=== PATIENT | female | born 1970 | race Caucasian/White ===

== ENCOUNTER → 2020-10-02 14:02 | Outpatient (BNVA) | payer OTHER, SELFPAY | PROVIDERS: PCP Internal Medicine; Visit Provider Internal Medicine Gastroenterology | DX: Z76.89 Persons encountering health services in other specified circumstances (principal) ==

== ENCOUNTER 2020-10-11 12:47 | Outpatient (REF) | payer OTHER, SELFPAY ==
--- NOTE | 2020-10-11 12:53 | XR_ITS ---
EXAMINATION: KNEE X-RAY CLINICAL INFORMATION: Left knee pain COMPARISON: None TECHNIQUE: Standing AP view of both knees and lateral and sunrise view of the left knee FINDINGS: On the lateral view, the patella may be slightly high or patella brianna. Patellar location appears similar on the bilateral AP standing view. Bone alignment is otherwise normal. No fracture or dislocation is seen. The joint spaces are normal. There is no joint effusion. XR/XR knee LT 2V IMPRESSION: Question slightly high patella or patella brianna. Otherwise unremarkable exam.
--- NOTE | 2020-10-11 12:53 | XR_ITS ---
EXAMINATION: KNEE X-RAY CLINICAL INFORMATION: Left knee pain COMPARISON: None TECHNIQUE: Standing AP view of both knees and lateral and sunrise view of the left knee FINDINGS: On the lateral view, the patella may be slightly high or patella brianna. Patellar location appears similar on the bilateral AP standing view. Bone alignment is otherwise normal. No fracture or dislocation is seen. The joint spaces are normal. There is no joint effusion. XR/XR knee standing BI IMPRESSION: Question slightly high patella or patella brianna. Otherwise unremarkable exam.
== END 2020-10-11 12:48 | disposition home or self-care (01) ==
LOC: HO.XRAY 12:47
PROVIDERS: PCP Internal Medicine; Visit Provider Physician Assistant
DX: M25.562 Pain in left knee (principal); M54.42 Lumbago with sciatica, left side; Z87.891 Personal history of nicotine dependence; Z91.09 Other allergy status, other than to drugs and biological substances
CPT/HCPCS: 73560; 73565; 99202

== ENCOUNTER → 2020-11-01 08:11 | Outpatient (BNVA) | payer OTHER, SELFPAY | PROVIDERS: PCP Internal Medicine; Visit Provider Nurse Practitioner Family | DX: M54.16 Radiculopathy, lumbar region (principal); M53.3 Sacrococcygeal disorders, not elsewhere classified | CPT/HCPCS: 99202 ==

== ENCOUNTER 2020-11-11 18:29 | Outpatient (REF) | payer OTHER, SELFPAY ==
--- NOTE | ~2020-11-11 | MR_ITS ---
MR LUMBAR SPINE WITHOUT CONTRAST CLINICAL INFORMATION: Lumbar region radiculopathy. COMPARISON: Lumbar spine MRI 04/15/2015. TECHNIQUE: MRI of the lumbar spine was obtained using routine sequences without contrast. FINDINGS: There is a leftward convex scoliotic curvature at the thoracolumbar junction. S1 is lumbarized and shares a rudimentary disc with S2. There are 5 nonrib-bearing lumbar-type vertebral bodies. Vertebral body heights are maintained. There is moderate disc volume loss at L5-S1. Disc desiccation at L4-L5 and L5-S1. Modic type I and Modic type II endplate signal changes at L5-S1. Conus terminates at the upper L3 level. There are no significant soft tissue findings. L1-L2: Disc contour is normal. No central canal stenosis and no foraminal stenosis. L2-L3: Disc contour is normal. No central canal stenosis and no foraminal stenosis. L3-L4: Disc contour is normal. No central canal stenosis and no foraminal stenosis. L4-L5: There is a small annular disc bulge with a superimposed right foraminal disc protrusion that along with facet arthropathy results in moderate right foraminal stenosis with mild mass effect on the exiting right L4 nerve root. No central canal and no left foraminal stenosis. L5-S1: There is a diffuse annular disc bulge that is in part disc osteophyte and there is severe bilateral facet arthropathy. No central canal stenosis. Moderate to severe bilateral foraminal stenosis with mass effect on the exiting L5 nerve roots bilaterally. MR/MR lumbar spine wo con IMPRESSION: - Transitional anatomy. S1 is partially lumbarized and shares a rudimentary disc with S2. Please correlate with plain films prior to any percutaneous or surgical intervention. - At L4-L5, a right foraminal disc protrusion and moderate facet arthropathy result in moderate right foraminal stenosis with mild mass effect on the exiting right L4 nerve root. - At L5-S1, multifactorial degenerative changes result in moderate to severe bilateral foraminal stenosis with mass effect on the exiting L5 nerve roots bilaterally. Modic type I and Modic type II endplate signal changes at L5-S1. - Leftward convex scoliotic curvature at the thoracolumbar junction.
== END 2020-11-11 18:30 | disposition home or self-care (01) ==
LOC: HO.MRI 18:29
PROVIDERS: Visit Provider Anesthesiology
DX: M54.16 Radiculopathy, lumbar region (principal)
CPT/HCPCS: 72148

== ENCOUNTER → 2020-11-15 14:00 | Outpatient (BNVA) | payer OTHER, SELFPAY | PROVIDERS: PCP Internal Medicine; Visit Provider Nurse Practitioner Family ==

== ENCOUNTER → 2020-11-25 10:58 | Outpatient (BNVA) | payer OTHER, SELFPAY | PROVIDERS: PCP Internal Medicine; Visit Provider Nurse Practitioner Family | DX: M54.16 Radiculopathy, lumbar region (principal); M53.3 Sacrococcygeal disorders, not elsewhere classified; Z79.899 Other long term (current) drug therapy | CPT/HCPCS: 99212 ==

== ENCOUNTER 2021-01-23 15:03 | Outpatient (REF) | payer OTHER, SELFPAY ==
[2021-01-23 15:46] LABS: MANUAL DIFF FLAG NO
[2021-01-23 15:53] LABS: Basophils Percent Auto 0.5 % (0-2); Eosinophils Absolute Auto 0.1 X10*3/uL (0.0-0.4); Eosinophils Percent Auto 1.7 % (0-4); Hematocrit 40.5 % (37-47); Hemoglobin 13.2 g/dl (12.0-16.0); Imm Gran Abs Auto 0.02 X10*3/uL (0.00-0.03); Imm Gran Pct Auto 0.3 % (0.0-0.4); Lymphocytes Absolute Auto 2.8 X10*3/uL (1.2-4.9); Lymphocytes Percent Auto 37.9 % (20-40); Mean Corpuscular HGB Conc 32.6 g/dl (31.0-35.0); Mean Corpuscular Hemoglobin 31.1 pg (27.0-33.0); Mean Corpuscular Volume 95.5 fL (80-98); Monocytes Absolute Auto 0.4 X10*3/uL (0.1-1.2); Monocytes Percent Auto 5.5 % (2-11); Neutrophils Percent Auto 54.1 % (45-73); Platelet Count 251 X10*3/uL (160-400); Red Blood Count 4.24 X10*6/uL (4.20-5.50); White Blood Count 7.5 X10*3/uL (4.8-10.8)
[2021-01-23 16:14] LABS: Alanine Aminotransferase 18 U/L (0-31); Albumin Level 4.2 g/dL (3.5-5.0); Alkaline Phosphatase 92 U/L (39-117); Anion Gap 12 (12-20); Aspartate Amino Transferase 15 U/L (5-31); Bilirubin Total 0.5 mg/dL (0.0-1.0); Blood Urea Nitrogen 16 mg/dL (9-16); Calcium 9.7 mg/dL (8.4-10.2); Carbon Dioxide 25 mmol/L (22-29); Chloride 108 mmol/L (96-108); Estimated Glomerular Filt Rate > 60; Glucose Random 95 mg/dL (60-115); Potassium 4.1 mmol/L (3.3-5.1); Sodium 141 mmol/L (135-145); Total Protein 6.9 g/dL (6.5-8.0)
[2021-01-23 16:21] LABS: Glucose Urine UA NEG (NEG); Leukocyte Esterase Urine NEG (NEG); Nitrite Urine NEG (NEG); Specific Gravity - Urine >= 1.030 (1.005-1.025); Urine Blood NEG (NEG); Urine Ketones NEG (NEG); Urine Protein NEG (NEG-TRACE)
[2021-01-23 16:26] LABS: Appearance Urine CLEAR; Color Urine YELLOW
[2021-01-23 16:35] LABS: Thyroid Stimulating Hormone 3.51 uIU/mL (0.32-4.0)
== END 2021-01-23 15:04 | disposition home or self-care (01) ==
LOC: HO.LAB 15:03
PROVIDERS: PCP Internal Medicine; Visit Provider Internal Medicine
DX: R30.0 Dysuria (principal); R60.9 Edema, unspecified; K21.9 Gastro-esophageal reflux disease without esophagitis
CPT/HCPCS: 36415; 80053; 81003; 84443; 85025; 87086

== ENCOUNTER 2021-01-31 13:51 | Outpatient (REF) | payer OTHER, SELFPAY ==
[2021-02-05 00:53] LABS: HPV mRNA E6/E7 rflx Not Detected (Not Detected)
== END 2021-01-31 13:52 | disposition home or self-care (01) ==
LOC: HO.LAB 13:51
PROVIDERS: PCP Internal Medicine; Visit Provider Obstetrics & Gynecology
DX: Z01.419 Encounter for gynecological examination (general) (routine) without abnormal findings (principal); Z11.51 Encounter for screening for human papillomavirus (HPV)
CPT/HCPCS: 87624; 88142

== ENCOUNTER → 2021-04-01 10:55 | Outpatient (BNVA) | payer OTHER, SELFPAY | PROVIDERS: PCP Internal Medicine; Visit Provider Nurse Practitioner Family ==

== ENCOUNTER 2021-04-23 09:00 | Outpatient (REF) | payer OTHER, SELFPAY | END 2021-04-23 09:01 | disposition home or self-care (01) | LOC: HO.LNP 09:00 | PROVIDERS: PCP Internal Medicine | DX: R35.0 Frequency of micturition (principal) | CPT/HCPCS: 87086; 99202 ==

== ENCOUNTER 2021-05-02 14:55 | Outpatient (REF) | payer OTHER, SELFPAY ==
--- NOTE | ~2021-05-02 | XR_ITS ---
EXAMINATION: XR FOOT, RIGHT CLINICAL INFORMATION: Right heel pain. COMPARISON: None TECHNIQUE: AP, lateral, and oblique views of the right foot. FINDINGS: No acute fracture or dislocation. No joint space narrowing or marginal osteophytes. No osseous erosion. Mild soft tissue swelling. Tiny plantar and dorsal calcaneal enthesophytes. XR/XR foot RT min 3V IMPRESSION: Tiny plantar and dorsal calcaneal spurs.
== END 2021-05-02 14:56 | disposition home or self-care (01) ==
LOC: HO.XRAY 14:55
PROVIDERS: PCP Internal Medicine; Visit Provider Internal Medicine
DX: M79.671 Pain in right foot (principal)
CPT/HCPCS: 73630

== ENCOUNTER → 2021-06-18 11:02 | Outpatient (BNVA) | payer OTHER, SELFPAY | PROVIDERS: Visit Provider Nurse Practitioner Family | DX: M77.31 Calcaneal spur, right foot (principal); M53.3 Sacrococcygeal disorders, not elsewhere classified | CPT/HCPCS: 99212 ==

== ENCOUNTER 2021-06-23 10:32 | Outpatient (REF) | payer OTHER, SELFPAY ==
--- NOTE | ~2021-06-23 | MM_ITS ---
EXAMINATION: MM SCREENING DIGITAL BREAST TOMOSYNTHESIS, BILATERAL CLINICAL INFORMATION: Screening. Asymptomatic. The lifetime risk of breast cancer based on the Tyrer-Cuzick Model is 18%. COMPARISON: Mammography: 07/10/2019, 06/24/2018, 06/08/2017, 09/11/2016, 07/19/2015 TECHNIQUE: Digital breast tomosynthesis is performed in both the craniocaudal and mediolateral oblique views along with computer-aided detection (CAD). Synthesized 2D images are generated from the tomosynthesis. FINDINGS: There are scattered areas of fibroglandular density (ACR BI-RADS breast composition Category b). There is fine fibronodular parenchymal pattern. The right breast is unremarkable. There is no interval mass or architectural abnormality. Neither breast shows abnormal calcifications. Low right axillary tail nodes stable. The axilla and skin contours are unremarkable. Left breast has oval circumscribed nodule central 5:30 o'clock position 6 cm from nipple measuring approximately 0.5 x 0.7 cm. This could represent a waxing/waning cyst. Patient will be recalled for targeted ultrasound to further characterize. MM/MM tomosynthesis screening BI IMPRESSION: 1. Left: Circumscribed nodule central 5:30 o'clock position under 1 cm, possibly a cyst. 2. Right: No mammographic evidence of malignancy. ASSESSMENT: BI-RADS 0: Incomplete - Need Additional Imaging Evaluation RECOMMENDATION: 1. Targeted ultrasound left breast. 2. Radiology department staff will contact the patient for additional imaging. This patient's information was entered into a reminder system with a target due date for their next mammogram.
== END 2021-06-23 10:33 | disposition home or self-care (01) ==
LOC: HO.MAMMO 10:32
PROVIDERS: PCP Internal Medicine; Visit Provider Obstetrics & Gynecology
DX: Z12.31 Encounter for screening mammogram for malignant neoplasm of breast (principal)
CPT/HCPCS: 77063; 77067

== ENCOUNTER 2021-06-27 13:09 | Outpatient (REF) | payer OTHER, SELFPAY ==
--- NOTE | ~2021-06-27 | US_ITS ---
EXAMINATION: US DIAGNOSTIC ULTRASOUND BREAST, LEFT CLINICAL INFORMATION: Recall from screening for oval circumscribed nodule central 5:30 o'clock position 6 cm from nipple under 1 cm, possibly waxing and waning cyst. Family history breast cancer, mother and aunt. TC score 18%.. COMPARISON: Mammography 06/23/2021, 07/10/2019, 06/24/2018. TECHNIQUE: Ultrasound left breast is targeted to the inferior breast. Grayscale imaging and color Doppler are performed without and with harmonics. FINDINGS: There is no focal suspicious finding. No solid mass or architectural abnormality or focal duct ectasia. There is a anechoic oval circumscribed nodule 6:00 position 5 cm from nipple measuring 0.6 x 0.3 cm which may represent the finding on mammography. There is no associated internal septation or color flow. It is difficult to obtain component through transmission of sound, likely due to the small size. This area is an adjacent satellite cyst measuring under 4 mm. Results are discussed with the patient at time of visit. Finding on ultrasound likely corresponds to the mammogram and suggests a small incidental cyst. No suspicious finding. As a precaution given the family history, short interval follow-up left mammography will be requested with ultrasound as needed at same visit. US/US breast LT limited IMPRESSION: Probable small benign cyst corresponding to finding on mammography. ASSESSMENT: BI-RADS 3: Probably Benign RECOMMENDATION: Diagnostic left mammography in 6 months. Targeted ultrasound if warranted at same visit. This patient's information was entered into a reminder system with a target due date for their next mammogram.
== END 2021-06-27 13:10 | disposition home or self-care (01) ==
LOC: HO.MAMMO 13:09
PROVIDERS: PCP Internal Medicine; Visit Provider Obstetrics & Gynecology
DX: N63.23 Unspecified lump in the left breast, lower outer quadrant (principal)
CPT/HCPCS: 76642

== ENCOUNTER 2021-07-02 06:20 | Outpatient (REF) | payer OTHER, SELFPAY ==
--- NOTE | ~2021-07-02 | FL_ITS ---
EXAMINATION: XR FLUOROSCOPY WITH IMAGES CLINICAL INFORMATION: Sacrococcygeal disorders, not elsewhere classified. COMPARISON: None. TECHNIQUE: Fluoroscopy performed by Dr. Lawson. Fluoroscopy time: 0.7 minutes DAP: 3.23 Gycm2 Images: 3 FL/FL guidance in treatment room FINDINGS/IMPRESSION: Fluoroscopy was performed for procedural guidance. Please refer to the procedure report for more detailed findings.
== END 2021-07-02 06:21 | disposition home or self-care (01) ==
LOC: HO.RADIR 06:20
PROVIDERS: Visit Provider Internal Medicine
DX: M53.3 Sacrococcygeal disorders, not elsewhere classified (principal)
CPT/HCPCS: 27096; J1040

== ENCOUNTER 2021-07-22 11:17 | Outpatient (REF) | payer OTHER, SELFPAY ==
[2021-07-22 13:45] LABS: MANUAL DIFF FLAG NO
[2021-07-22 13:51] LABS: Appearance Urine CLOUDY; Color Urine YELLOW; Glucose Urine UA NEG (NEG); Leukocyte Esterase Urine NEG (NEG); Nitrite Urine NEG (NEG); Specific Gravity - Urine >= 1.030 (1.005-1.025); Urine Blood NEG (NEG); Urine Ketones NEG (NEG); Urine Protein NEG (NEG-TRACE)
[2021-07-22 13:53] LABS: Basophils Percent Auto 0.7 % (0-2); Eosinophils Absolute Auto 0.1 X10*3/uL (0.0-0.4); Eosinophils Percent Auto 1.6 % (0-4); Hematocrit 38.6 % (37.0-47.0); Hemoglobin 12.9 g/dl (12.0-16.0); Imm Gran Abs Auto 0.02 X10*3/uL (0.00-0.03); Imm Gran Pct Auto 0.4 % (0.0-0.4); Lymphocytes Absolute Auto 2.2 X10*3/uL (1.2-4.9); Lymphocytes Percent Auto 39.5 % (20-40); Mean Corpuscular HGB Conc 33.4 g/dl (31.0-35.0); Mean Corpuscular Hemoglobin 32.2 pg (27.0-33.0); Mean Corpuscular Volume 96.3 fL (80.0-98.0); Monocytes Absolute Auto 0.3 X10*3/uL (0.1-1.2); Monocytes Percent Auto 5.7 % (2-11); Neutrophils Absolute Auto 2.91 x10*3/uL (2.0-8.3); Neutrophils Percent Auto 52.1 % (45-73); Platelet Count 261 X10*3/uL (160-400); Red Blood Count 4.01 X10*6/uL (4.20-5.50); White Blood Count 5.6 X10*3/uL (4.8-10.8)
[2021-07-22 14:34] LABS: Alanine Aminotransferase 15 U/L (0-31); Albumin Level 4.1 g/dL (3.5-5.0); Alkaline Phosphatase 71 U/L (39-117); Anion Gap 12 (12-20); Aspartate Amino Transferase 16 U/L (5-31); Bilirubin Total 0.3 mg/dL (0.0-1.0); Blood Urea Nitrogen 14 mg/dL (9-16); Calcium 8.8 mg/dL (8.4-10.2); Carbon Dioxide 25 mmol/L (22-29); Chloride 110 mmol/L (96-108); Cholesterol 223 mg/dL; Estimated Glomerular Filt Rate > 60; Glucose Fasting 93 mg/dL (60-99); HDL Cholesterol 34 mg/dL; LDL Cholesterol Calculated 163 mg/dl; Potassium 4.2 mmol/L (3.3-5.1); Sodium 143 mmol/L (135-145); Total Protein 6.6 g/dL (6.5-8.0); Triglycerides 130 mg/dL
== END 2021-07-22 11:18 | disposition home or self-care (01) ==
LOC: HO.10HDL 11:17
PROVIDERS: Visit Provider Internal Medicine
DX: M54.9 Dorsalgia, unspecified (principal); R30.0 Dysuria; E78.00 Pure hypercholesterolemia, unspecified
CPT/HCPCS: 36415; 80053; 80061; 81003; 85025; 87086

== ENCOUNTER → 2021-10-10 11:51 | Outpatient (BNVA) | payer OTHER, SELFPAY | PROVIDERS: PCP Internal Medicine; Referring Provider Internal Medicine; Visit Provider Nurse Practitioner | DX: K58.1 Irritable bowel syndrome with constipation (principal); K22.10 Ulcer of esophagus without bleeding; D12.6 Benign neoplasm of colon, unspecified | CPT/HCPCS: 99212 ==

== ENCOUNTER → 2021-10-31 13:18 | Outpatient (BNVA) | payer OTHER, SELFPAY | PROVIDERS: PCP Internal Medicine; Referring Provider Internal Medicine; Visit Provider Nurse Practitioner | DX: K58.1 Irritable bowel syndrome with constipation (principal); K21.9 Gastro-esophageal reflux disease without esophagitis; D12.6 Benign neoplasm of colon, unspecified | CPT/HCPCS: 99212 ==

== ENCOUNTER 2021-11-18 07:54 | Day surgery (SDC) | payer OTHER, SELFPAY ==
--- NOTE | 2021-11-17 12:12 | HO.ANESPROP2 ---
Documented by User: Patricia Monzon NP 11/17/21 12:13 HPI - Anesthesia Eval Consult details Narrative: 51yo F for Upper Endoscopy and Colonoscopy PMFSH Active Problems Active Problems: All Active Problems (Updated 11/12/21 @ 10:15 by Anayeli Carmichael, RN) Acute left-sided back pain with sciatica (Acute) Left lumbar radiculopathy (Acute) SI (sacroiliac) joint dysfunction (Acute) Well woman exam (Acute) Urinary frequency (Acute) Bone spur of posterior portion of right calcaneus (Acute) Paresthesia of left lower extremity (Acute) Erosive esophagitis (Acute) GERD (gastroesophageal reflux disease) (Acute) Tubular adenoma of colon (Acute) Irritable bowel syndrome with constipation (Acute) Past Medical History Medical History ADD (attention deficit disorder) Asthma Chronic low back pain Elevated cholesterol GERD (gastroesophageal reflux disease) Helicobacter pylori (H. pylori) infection History of depression History of methicillin resistant staphylococcus aureus (MRSA) Hx of cardiac murmur Irritable bowel syndrome with constipation PTSD (post-traumatic stress disorder) Tubular adenoma of colon Family History Family History Father Family history of Alzheimer's disease History of dementia Mother Hx of type 2 diabetes mellitus Surgical History Surgical History (Updated 11/12/21 @ 10:07 by Anayeli Carmichael, DANYELLE) History of appendectomy History of endometrial ablation History of esophagogastroduodenoscopy (EGD) History of foot surgery History of tubal ligation Hx of section Hx of cholecystectomy Hx of colonoscopy with polypectomy Social History Social History Alcohol intake: current Alcohol intake frequency: holidays/special occasions only Patient Tobacco Use Status: Never used Tobacco Use of substances other than those prescribed or required for medical reasons: Yes Substance Use Type: Marijuana Advance Directives: No Advance Directives Information Provided: Yes Recently lost weight without trying: No Meds Allergies Allergy/AdvReac Type Severity Reaction Status Date / Time SEASONAL ALLERGIES Allergy Unknown UNKNOWN Uncoded 11/12/21 10:13 Home Medications Medication Instructions Recorded Confirmed Last Taken Type atorvastatin 10 mg tablet 10 mg PO DAILY 10/02/20 11/12/21 Unknown History clonazepam 0.5 mg tablet 0.5 mg PO BID PRN 10/02/20 11/12/21 Unknown History dextroamphetamine 20 mg tablet 20 mg PO BID 11/01/20 11/12/21 Unknown History zolpidem 10 mg tablet 10 mg PO BEDTIME PRN 11/01/20 11/12/21 Unknown History albuterol sulfate 90 mcg/actuation 2 puff INHALATION 6XD PRN 11/12/21 11/12/21 Unknown History aerosol inhaler (ProAir HFA) Exam Exam Date and Time: November 17, 2021 1212 Pertinent Lab Results Pertinent Lab Results: Laboratory Tests 07/22/21 07/22/21 11:25 11:25 WBC 5.6 Hgb 12.9 Hct 38.6 Plt Count 261 Sodium 143 Potassium 4.2 Chloride 110 H Carbon Dioxide 25 BUN 14 Creatinine 0.79 Assessment and Plan Assessment Anesthesia Assessment: Chart Reviewed Documented by User: Nicole Campoverde MD 11/18/21 08:41 PMFSH Past Medical History Medical History ADD (attention deficit disorder) Asthma Chronic low back pain Elevated cholesterol GERD (gastroesophageal reflux disease) Helicobacter pylori (H. pylori) infection History of depression History of methicillin resistant staphylococcus aureus (MRSA) Hx of cardiac murmur Irritable bowel syndrome with constipation PTSD (post-traumatic stress disorder) Tubular adenoma of colon Functional capacity: independent ambulation Family History Family History Father Family history of Alzheimer's disease History of dementia Mother Hx of type 2 diabetes mellitus Family history of problems with anesthesia: No Surgical History Surgical History (Updated 11/12/21 @ 10:07 by Anayeli Carmichael RN) History of appendectomy History of endometrial ablation History of esophagogastroduodenoscopy (EGD) History of foot surgery History of tubal ligation Hx of section Hx of cholecystectomy Hx of colonoscopy with polypectomy Social History Social History Alcohol intake: current Alcohol intake frequency: holidays/special occasions only Patient Tobacco Use Status: Never used Tobacco Use of substances other than those prescribed or required for medical reasons: Yes Substance Use Type: Marijuana Advance Directives: No Advance Directives Information Provided: Yes Recently lost weight without trying: No Meds Allergies Allergy/AdvReac Type Severity Reaction Status Date / Time SEASONAL ALLERGIES Allergy Unknown UNKNOWN Uncoded 11/12/21 10:13 Home Medications Medication Instructions Recorded Confirmed Last Taken Type atorvastatin 10 mg tablet 10 mg PO DAILY 10/02/20 11/12/21 Unknown History clonazepam 0.5 mg tablet 0.5 mg PO BID PRN 10/02/20 11/12/21 Unknown History dextroamphetamine 20 mg tablet 20 mg PO BID 11/01/20 11/12/21 Unknown History zolpidem 10 mg tablet 10 mg PO BEDTIME PRN 11/01/20 11/12/21 Unknown History albuterol sulfate 90 mcg/actuation 2 puff INHALATION 6XD PRN 11/12/21 11/12/21 Unknown History aerosol inhaler (ProAir HFA) Exam Airway Mallampati Class: III TM Dist: >3cm Neck ROM: Full Heart: RRR Lungs: CTA Assessment and Plan Final Anesthetic Review Family History of Problems with Anesthesia: No ASA Class: II Final Preanesthetic Review: No Changes in Pt Med Stat, Meds/Allgs Chart Reviewed, Consent Obtained/Reviewed and Anes Risks/Benef Reviewed Patient Risk: Low Procedure Risk: Low Anesthetic Plan Anesthetic Plan: MAC: Disposition: Standard PACU
[2021-11-18 08:07] VITALS: BP 114/79; PULSE 92; RESP 17; TEMP 36.4; O2SAT 97; BMI 35.6
--- NOTE | 2021-11-18 08:32 | MHC.SHP ---
Pre-Procedural Eval Section A Date of Service: 11/18/21 Changes since office visit: Yes Patient answered all questions; No Cold of Flu in the past 2 weeks, No New Medical Problems and No Changes in Medication The History & Physical has been completed within 30 days and I have reviewed it.: Yes Section B Chief Complaint: IBS with Constipation, GERD Allergies: Allergies Allergy/AdvReac Type Severity Reaction Status Date / Time SEASONAL ALLERGIES Allergy Unknown UNKNOWN Uncoded 11/12/21 10:13 Plan I have reviewed the history and physical and performed a pertinent physical examination on my patient. No changes have occurred unless specified.
--- NOTE | 2021-11-18 08:32 | PM.OP ---
Brief Operative Note Date of Service: 11/18/21 Pre-op diagnosis: Colon cancer screening, chronic constipation, GERD Post-op diagnosis: other (Hiatal hernia, esophagitis, gastritis, gastric antral nodule,) Procedure: FLEXIBLE TRANSORAL UPPER GASTROINTESTINAL ENDOSCOPY WITH BIOPSIES AND COLONOSCOPY TILL CECUM WITH BIOPSIES UPPER ENDOSCOPY Consent: Indications for the procedure and potential complications of bleeding, perforation, reaction to medications and missed diagnosis were discussed with the patient and informed consent was obtained. Instrument: Olympus GIF H 190 mid size upper endoscope Monitoring: Vital signs and clinical assessment, continuous EKG monitoring, Pulse oximetry, Carbon Dioxide monitoring and blood pressure monitoring were done throughout the procedure. Procedure: The patient was placed in the left lateral decubitis position and pre-procedure medications were administered and a bite block was placed. The endoscope was inserted into the mouth and advanced under direct vision to the third part of duodenum. A careful inspection was made as the upper endoscope was withdrawn including a retroflexed examination of the proximal stomach; Findings and interventions are described below. Findings: Larynx: Normal Esophagus: GE junction at 32 cms, hiatal hernia 32 to 35 cms. Irregular Z line - bxed to check for Gibson's. Focal esophagitis with healing erosions just above the GE junction. Stomach: Moderate diffuse gastric erythema. Biopsies were obtained from gastric antrum and body. A 2 cms benign appearing nodule was seen in the antrum and biopsied were obtained. Grade 2 flap valve on retroflexed examination of the cardia. Duodenum: Normal bulb and descending duodenum. Biopsies were obtained from 3rd part of the duodenum to check for celiac sprue Intervention: Biopsies as noted above COLONOSCOPY PROCEDURE NOTE Consent: Indications for the procedure and potential complications of bleeding, perforation, reaction to medications and missed diagnosis were discussed with the patient and informed consent was obtained. Instrument: Olympus PCF H 190 L variable stiffness pediatric colonoscope Monitoring: Vital signs and clinical assessment, intermittent blood pressure monitoring, continuous EKG monitoring, Pulse oximetry and Carbon Dioxide monitoring were done throughout the procedure. Colon withdrawl time was 21 minutes. Procedure: The patient was placed in the left lateral decubitis position and pre-procedure medications were administered. After a digital rectal examination of the ano-rectum, the video colonoscope was inserted into the rectum and advanced through the colon to the cecum. The colonoscope was slowly withdrawn in a retrograde panoramic fashion and the colon mucosa was carefully examined including a retroflexed view of the rectum. Findings and interventions are described below. Procedure Difficulty: : Without difficulty Findings: Terminal Ileum: Distal 5 cm was examined and appeared normal Cecum: Normal Ascending Colon: A 5-6 mm sessile polyp removed with the cold biopsy Transverse Colon: Normal Descending Colon: Normal Sigmoid Colon: Moderate diverticulosis Rectum: Normal Ano-rectum: Small internal hemorrhoids and perianal skin tags Colon preparation: Good Impression and Post Procedure Diagnosis: Endoscopy Findings: ESOPHAGUS: GE junction at 32 cms, hiatal hernia 32 to 35 cms. Irregular Z line - bxed to check for Gibson's. Focal esophagitis with healing erosions just above the GE junction. STOMACH: Moderate diffuse gastric erythema. Biopsies were obtained from gastric antrum and body. A 2 cms benign appearing nodule was seen in the antrum and biopsied were obtained. DUODENUM: Normal bulb and descending duodenum. Biopsies were obtained from 3rd part of the duodenum to check for celiac sprue Colonoscopy Findings: One small polyp removed. Random biopsies were obtained from the colon to check for microscopic colitis. Moderate diverticulosis seen in the sigmoid colon Small hemorrhoids on retroflexed exam. Plan: Await pathology results Patient has an appointment on 12/11/21 in the GI Clinic with Fay Franks NP . Repeat Colonoscopy interval based on path results - in 5 years if polyp is adenomatous and 10 years if polypis hyperplastic. Above findings were reviewed with the patient and GERD, hiatal hernia, colon polyps and diverticulosis handouts were given in the discharge area Surgeon: Sergo Claire MD Anesthesia: MAC (Dr Felipe & Dr Campoverde) Was an Commercial Account Executive used for this Procedure?: Yes Commercial Account Executive: Heaven Lopez Estimated blood loss (mL): 0 Pathology: other (A. duodenal bxs, R/O celiac B. gastric antrum bxs, R/O H. pylori C. nodule gastric antrum bxs D. gastric body bxs E. G-E junction bxs, R/O Gibson's F. bxs right-sided and lef) Condition: stable Disposition: PACU
--- NOTE | 2021-11-18 08:33 | W.PM.OPN ---
Operative Note Operative Note Date of Service: 11/18/21 Narrative: Pre-op diagnosis: Colon cancer screening, chronic constipation, GERD Post-op diagnosis:?other (Hiatal hernia, esophagitis, gastritis, gastric antral nodule) Procedure: FLEXIBLE TRANSORAL UPPER GASTROINTESTINAL ENDOSCOPY WITH BIOPSIES AND COLONOSCOPY TILL CECUM WITH BIOPSIES UPPER ENDOSCOPY Consent:?Indications for the procedure and potential complications of bleeding, perforation, reaction to medications and missed diagnosis were discussed with the patient and informed consent was obtained. Instrument:?Olympus GIF H 190 mid size upper endoscope Monitoring: Vital signs and clinical assessment, continuous EKG monitoring, Pulse oximetry, Carbon Dioxide monitoring and blood pressure monitoring were done throughout the procedure. Procedure:?The patient was placed in the left lateral decubitis position and pre-procedure medications were administered and a bite block was placed. The endoscope was inserted into the mouth and advanced under direct vision to the third part of duodenum. A careful inspection was made as the upper endoscope was withdrawn including a retroflexed examination of the proximal stomach; Findings and interventions are described below. Findings: Larynx:? Normal Esophagus:?GE junction at 32 cms, hiatal hernia 32 to 35 cms.? Irregular Z line - bxed to check for Gibson's. Focal esophagitis with healing erosions just above the GE junction. Stomach:?Moderate diffuse gastric erythema. Biopsies were obtained from gastric antrum and body. A 2 cms benign appearing nodule was seen in the antrum and biopsied were obtained. Grade 2 flap valve on retroflexed examination of the cardia. Duodenum:?Normal bulb and descending duodenum.? Biopsies were obtained from 3rd part of the duodenum to check for celiac sprue Intervention:?Biopsies as noted above COLONOSCOPY PROCEDURE NOTE Consent:?Indications for the procedure and potential complications of bleeding, perforation, reaction to medications and missed diagnosis were discussed with the patient and informed consent was obtained. Instrument:?Olympus PCF H 190 L variable stiffness pediatric colonoscope Monitoring:?Vital signs and clinical assessment, intermittent blood pressure monitoring, continuous EKG monitoring, Pulse oximetry and Carbon Dioxide monitoring were done throughout the procedure. Colon withdrawl time was 21 minutes. Procedure:?The patient was placed in the left lateral decubitis position and pre-procedure medications were administered. After a digital rectal examination of the ano-rectum, the video colonoscope was inserted into the rectum and advanced through the colon to the cecum. The colonoscope was slowly withdrawn in a retrograde panoramic fashion and the colon mucosa was carefully examined including a retroflexed view of the rectum. Findings and interventions are described below. Procedure Difficulty:?: Without difficulty Findings: Terminal Ileum: Distal 5 cm was examined and appeared normal Cecum:? Normal Ascending Colon:??A 5-6 mm sessile polyp removed with the cold biopsy Transverse Colon:??Normal Descending Colon:? Normal Sigmoid Colon:??Moderate diverticulosis Rectum:??Normal Ano-rectum:??Small internal hemorrhoids and perianal skin tags Colon preparation:? Good? Impression and Post Procedure Diagnosis: Endoscopy Findings: ESOPHAGUS: GE junction at 32 cms, hiatal hernia 32 to 35 cms.? Irregular Z line - bxed to check for Gibson's. Focal esophagitis with healing erosions just above the GE junction. STOMACH: Moderate diffuse gastric erythema. Biopsies were obtained from gastric antrum and body. A 2 cms benign appearing nodule was seen in the antrum and biopsied were obtained. DUODENUM: Normal bulb and descending duodenum.? Biopsies were obtained from 3rd part of the duodenum to check for celiac sprue Colonoscopy Findings: One small polyp removed. Random biopsies were obtained from the colon to check for microscopic colitis. Moderate diverticulosis seen in the sigmoid colon Small hemorrhoids on retroflexed exam. Plan: Await pathology results Patient has an appointment on 12/11/21 in the GI Clinic with? Fay Franks NP . Repeat Colonoscopy interval based on path results - in 5 years if polyp is adenomatous and 10 years if polypis hyperplastic. Above findings were reviewed with the patient and GERD, hiatal hernia, colon polyps and diverticulosis handouts were given in the discharge area Surgeon: Sergo Claire MD Anesthesia:?MAC (Dr Felipe & Dr Campoverde) Was an Insight Leader used for this Procedure?:?Yes Insight Leader:?Heaven Lopez Estimated blood loss (mL):?0 Pathology:?other (A. duodenal bxs, R/O celiac? B. gastric antrum bxs, R/O H. pylori? C. nodule gastric antrum bxs? D. gastric body bxs? E. G-E junction bxs, R/O Gibson's? F. bxs right-sided and lef) Condition:?stable Disposition:?PACU
[2021-11-18 10:02] VITALS: BP 114/76; PULSE 90; RESP 16; TEMP 36.2; O2SAT 94
[2021-11-18 10:17] VITALS: BP 125/83; PULSE 72; RESP 18; TEMP 36.2; O2SAT 98
--- NOTE | 2021-11-18 12:26 | HO.POSTANES ---
Post Anesthesia Evaluation Post Anesthesia Evaluation Vital Signs: Vital Signs Temp Pulse Resp BP Pulse Ox 11/18/21 10:17 97.1 F 72 18 125/83 98 11/18/21 10:02 97.1 F 90 16 114/76 94 11/18/21 08:07 97.6 F 92 17 114/79 97 Anesthesia: Monitored Mental Status: Awake Pain Control: Satisfactory Nausea/Vomiting: None Hydration: Adequate Anesthesia-Related Issues: No Anes. Related Issues
== END 2021-11-18 11:01 | disposition home or self-care (01) ==
PROVIDERS: PCP Internal Medicine; Visit Provider Internal Medicine Gastroenterology
PROC: (CPT 45380; principal; 2021-11-18 09:10)
DX: Z12.11 Encounter for screening for malignant neoplasm of colon (principal); D12.2 Benign neoplasm of ascending colon; K57.30 Diverticulosis of large intestine without perforation or abscess without bleeding; K64.8 Other hemorrhoids; K64.4 Residual hemorrhoidal skin tags; K58.1 Irritable bowel syndrome with constipation; K22.10 Ulcer of esophagus without bleeding; K21.9 Gastro-esophageal reflux disease without esophagitis; K44.9 Diaphragmatic hernia without obstruction or gangrene; K31.7 Polyp of stomach and duodenum; K29.50 Unspecified chronic gastritis without bleeding; Z79.899 Other long term (current) drug therapy; Z90.49 Acquired absence of other specified parts of digestive tract; F12.90 Cannabis use, unspecified, uncomplicated
CPT/HCPCS: 45380; 43239; 88305; 88342

== ENCOUNTER 2021-11-20 10:05 | Outpatient (REF) | payer OTHER, SELFPAY ==
--- NOTE | 2021-11-20 10:07 | EMG_ITS ---
Left tibial and peroneal motor studies were performed. Left sural and superficial peroneal sensory studies were performed. Tibial H-reflex was obtained and left lateral femoral cutaneous sensory study was obtained. Paraspinal muscles were tested with a needle. IMPRESSION: 1. Left lateral femoral cutaneous neuropathy. 2. Underlying [id number] chronic axonal sensory motor peripheral neuropathy. 3. Chronic left lower lumbar radiculopathy, probably L4-5. MD SHERON Hernandes/ROYCE / [id number]
== END 2021-11-20 10:06 | disposition home or self-care (01) ==
LOC: HO.NEURO 10:05
PROVIDERS: PCP Internal Medicine; Visit Provider Nurse Practitioner Family
DX: R20.2 Paresthesia of skin (principal)
CPT/HCPCS: 95886; 95909

== ENCOUNTER → 2021-12-11 13:16 | Outpatient (BNVA) | payer OTHER, SELFPAY | PROVIDERS: PCP Internal Medicine; Referring Provider Internal Medicine; Visit Provider Nurse Practitioner | DX: K58.1 Irritable bowel syndrome with constipation (principal); K21.9 Gastro-esophageal reflux disease without esophagitis; K22.70 Barrett's esophagus without dysplasia; K22.10 Ulcer of esophagus without bleeding; Z86.010 Personal history of colon polyps | CPT/HCPCS: 99212 ==

== ENCOUNTER 2021-12-26 12:57 | Outpatient (REF) | payer OTHER, SELFPAY ==
--- NOTE | ~2021-12-26 | US_ITS ---
EXAMINATION: US DIAGNOSTIC ULTRASOUND BREAST, LEFT CLINICAL INFORMATION: Cyst. COMPARISON: Mammography of same day and studies dating back to July 12, 2014. TECHNIQUE: Ultrasound of the breast is performed with real-time mortensen scale imaging and color Doppler. FINDINGS: Targeted left breast ultrasound again demonstrates at the 6:00 position 5 cm from nipple a 6 x 3 x 6 mm anechoic structure which is wider than it is tall without internal vascularity and smooth back wall with minimal through sound transmission. The lateral margins are somewhat angular. This is unchanged from prior study and has the appearance of a cyst. Results are discussed with the patient at time of visit. US/US breast LT limited IMPRESSION: There are no significant changes from prior study. The mammographic finding in size and location appears to correlate with the ultrasound findings. ASSESSMENT: BI-RADS 2: Benign RECOMMENDATION: Routine annual mammography screening, due in 6 months.
--- NOTE | ~2021-12-26 | MM_ITS ---
EXAMINATION: MM DIAGNOSTIC DIGITAL BREAST TOMOSYNTHESIS, LEFT US BREAST, LEFT TARGETED CLINICAL INFORMATION: Six-month follow-up left breast cyst. The lifetime risk of breast cancer based on the Tyrer-Cuzick Model is 14.7%. COMPARISON: Mammography: 06/23/2021 and studies dating back to 07/12/2014. . TECHNIQUE: Digital breast tomosynthesis is performed in both the craniocaudal and mediolateral oblique views along with computer-aided detection (CAD). Synthesized 2D images are generated from the tomosynthesis. MAMMOGRAM: FINDINGS: There are scattered areas of fibroglandular density (ACR BI-RADS breast composition Category b). There is a stable well-circumscribed density measuring 7 x 5 mm in size and lying approximately 5 cm from the nipple in the central inferior aspect of the left breast. No new suspicious masses or suspicious grouping of microcalcifications identified. Looking back on studies from 07/10/2019 and 06/24/2018 there appears to be a density in the same approximate location of the cyst. ULTRASOUND: Targeted left breast ultrasound again demonstrates at the 6 o'clock position 5 cm from nipple a 6 x 3 x 6 mm anechoic structure which is wider than it is tall without internal vascularity and smooth back wall with minimal through sound transmission. The lateral margins are somewhat angular. This is unchanged from prior study and has the appearance of a cyst. Results are discussed with the patient at time of visit. MM/MM tomosynthesis diagnostic LT IMPRESSION: There are no significant changes from prior study. The mammographic finding in size and location appears to correlate with the ultrasound findings. ASSESSMENT: BI-RADS 2: Benign RECOMMENDATION: Routine annual mammography screening, due in 6 months. This patient's information was entered into a reminder system with a target due date for their next mammogram.
== END 2021-12-26 12:58 | disposition home or self-care (01) ==
LOC: HO.MAMMO 12:57
PROVIDERS: Visit Provider Obstetrics & Gynecology
DX: N60.02 Solitary cyst of left breast (principal); G57.12 Meralgia paresthetica, left lower limb; M62.830 Muscle spasm of back
CPT/HCPCS: 76642; 77061; 77065

== ENCOUNTER 2022-02-04 14:17 | Outpatient (REF) | payer OTHER, SELFPAY ==
[2022-02-08 00:42] LABS: HPV mRNA E6/E7 rflx Not Detected (Not Detected)
== END 2022-02-04 14:18 | disposition home or self-care (01) ==
LOC: HO.LAB 14:17
PROVIDERS: Visit Provider Obstetrics & Gynecology
DX: Z01.419 Encounter for gynecological examination (general) (routine) without abnormal findings (principal); Z11.51 Encounter for screening for human papillomavirus (HPV); E78.00 Pure hypercholesterolemia, unspecified; K21.9 Gastro-esophageal reflux disease without esophagitis; J30.2 Other seasonal allergic rhinitis
CPT/HCPCS: 87624; 88142; 99212

== ENCOUNTER → 2022-02-19 14:08 | Outpatient (BNVA) | payer OTHER, SELFPAY | PROVIDERS: PCP Internal Medicine; Visit Provider Obstetrics & Gynecology | DX: N90.7 Vulvar cyst (principal) | CPT/HCPCS: 99212 ==

== ENCOUNTER 2022-03-02 10:40 | Outpatient (REF) | payer OTHER, SELFPAY ==
[2022-03-02 11:20] LABS: MANUAL DIFF FLAG NO
[2022-03-02 11:27] LABS: Basophils Percent Auto 0.6 % (0-2); Eosinophils Absolute Auto 0.1 X10*3/uL (0.0-0.4); Hematocrit 42.4 % (37.0-47.0); Hemoglobin 13.9 g/dl (12.0-16.0); Imm Gran Abs Auto 0.02 X10*3/uL (0.00-0.03); Imm Gran Pct Auto 0.3 % (0.0-0.4); Lymphocytes Percent Auto 28.2 % (20-40); Mean Corpuscular HGB Conc 32.8 g/dl (31.0-35.0); Mean Corpuscular Hemoglobin 31.2 pg (27.0-33.0); Mean Corpuscular Volume 95.3 fL (80.0-98.0); Mean Platelet Volume 9.4 fL (9.4-12.3); Monocytes Absolute Auto 0.4 X10*3/uL (0.1-1.2); Monocytes Percent Auto 5.3 % (2-11); Neutrophils Absolute Auto 4.6 x10*3/uL (2.0-8.3); Neutrophils Percent Auto 64.6 % (45-73); Platelet Count 252 X10*3/uL (160-400); Red Blood Count 4.45 X10*6/uL (4.20-5.50)
[2022-03-02 11:53] LABS: Alanine Aminotransferase 17 U/L (0-31); Albumin Level 4.3 g/dL (3.5-5.0); Alkaline Phosphatase 84 U/L (39-117); Anion Gap 11 (12-20); Aspartate Amino Transferase 13 U/L (5-31); Bilirubin Total 0.6 mg/dL (0.0-1.0); Blood Urea Nitrogen 16 mg/dL (9-16); Calcium 9.2 mg/dL (8.4-10.2); Carbon Dioxide 24 mmol/L (22-29); Chloride 107 mmol/L (96-108); Cholesterol 202 mg/dL; Estimated Glomerular Filt Rate > 60; Glucose Fasting 95 mg/dL (60-99); HDL Cholesterol 42 mg/dL; LDL Cholesterol Calculated 134 mg/dl; Potassium 4.3 mmol/L (3.3-5.1); Sodium 138 mmol/L (135-145); Total Protein 7.1 g/dL (6.5-8.0); Triglycerides 134 mg/dL
[2022-03-02 12:45] LABS: Free T4 (Free Thyroxine) 0.95 ng/dL (0.71-1.85); Thyroid Stimulating Hormone 3.58 uIU/mL (0.32-4.0)
== END 2022-03-02 10:41 | disposition home or self-care (01) ==
LOC: HO.10HDL 10:40
PROVIDERS: Visit Provider Internal Medicine
DX: E78.00 Pure hypercholesterolemia, unspecified (principal); K21.9 Gastro-esophageal reflux disease without esophagitis; R63.5 Abnormal weight gain; R60.0 Localized edema
CPT/HCPCS: 36415; 80053; 80061; 84439; 84443; 85025

== ENCOUNTER 2022-05-08 16:05 | Outpatient (REF) | payer OTHER, SELFPAY ==
--- NOTE | ~2022-05-08 | XR_ITS ---
EXAMINATION: XR RIBS, LEFT CLINICAL INFORMATION: Left-sided rib pain. COMPARISON: Chest radiograph done on 06/19/2020. TECHNIQUE: 3 views of the left ribs were obtained. The site of the left-sided lower hemithoracic rib pain as was pointed out by the patient was marked with a cutaneous BB marker. FINDINGS: Lungs are clear. No consolidation, pneumothorax, or pleural effusion. The cardiomediastinal silhouette and pulmonary vasculature are normal. Osseous structures are unremarkable. Ribs are intact. No fractures are identified. XR/XR ribs LT min 3V w CXR1V IMPRESSION: No radiographic evidence of any displaced left lower hemithoracic rib fracture or hemopneumothorax or lung contusion.
== END 2022-05-08 16:06 | disposition home or self-care (01) ==
LOC: HO.XRAY 16:05
PROVIDERS: PCP Internal Medicine; Visit Provider Internal Medicine
DX: R07.81 Pleurodynia (principal)
CPT/HCPCS: 71101

== ENCOUNTER 2022-06-04 11:50 | Outpatient (REF) | payer OTHER, SELFPAY ==
[2022-06-04 12:22] LABS: MANUAL DIFF FLAG NO
[2022-06-04 12:33] LABS: Basophils Absolute Auto 0.1 X10*3/uL (0.0-0.2); Basophils Percent Auto 0.6 % (0-2); Eosinophils Absolute Auto 0.1 X10*3/uL (0.0-0.4); Eosinophils Percent Auto 1.3 % (0-4); Hematocrit 41.3 % (37.0-47.0); Hemoglobin 13.5 g/dl (12.0-16.0); Imm Gran Abs Auto 0.04 X10*3/uL (0.00-0.03); Imm Gran Pct Auto 0.5 % (0.0-0.4); Lymphocytes Absolute Auto 2.4 X10*3/uL (1.2-4.9); Lymphocytes Percent Auto 30.9 % (20-40); Mean Corpuscular HGB Conc 32.7 g/dl (31.0-35.0); Mean Corpuscular Hemoglobin 30.9 pg (27.0-33.0); Mean Corpuscular Volume 94.5 fL (80.0-98.0); Monocytes Absolute Auto 0.5 X10*3/uL (0.1-1.2); Monocytes Percent Auto 6.1 % (2-11); Neutrophils Absolute Auto 4.8 x10*3/uL (2.0-8.3); Neutrophils Percent Auto 60.6 % (45-73); Platelet Count 261 X10*3/uL (160-400); Red Blood Count 4.37 X10*6/uL (4.20-5.50); Red Cell Distribution Width 12.4 % (11.0-16.0); White Blood Count 7.9 X10*3/uL (4.8-10.8)
[2022-06-04 13:04] LABS: Alanine Aminotransferase 32 U/L (0-31); Albumin Level 4.1 g/dL (3.5-5.0); Alkaline Phosphatase 89 U/L (39-117); Anion Gap 15 (12-20); Aspartate Amino Transferase 23 U/L (5-31); Bilirubin Total 0.4 mg/dL (0.0-1.0); Blood Urea Nitrogen 10 mg/dL (9-16); C Reactive Protein 0.26 mg/dL (< or = 0.50); Calcium 9.1 mg/dL (8.4-10.2); Carbon Dioxide 22 mmol/L (22-29); Chloride 111 mmol/L (96-108); Estimated Glomerular Filt Rate > 60; Glucose Random 98 mg/dL (60-115); Potassium 3.6 mmol/L (3.3-5.1); Sodium 144 mmol/L (135-145); Total Protein 6.7 g/dL (6.5-8.0)
[2022-06-11 14:42] LABS: Gliadin Deamidated IgA Ab <1.0 U/mL; Gliadin Deamidated IgG Ab <1.0 U/mL
== END 2022-06-04 11:51 | disposition home or self-care (01) ==
LOC: HO.LAB 11:50
PROVIDERS: PCP Internal Medicine; Visit Provider Nurse Practitioner
DX: R10.13 Epigastric pain (principal); R19.7 Diarrhea, unspecified; K58.1 Irritable bowel syndrome with constipation; D12.6 Benign neoplasm of colon, unspecified; K22.70 Barrett's esophagus without dysplasia
CPT/HCPCS: 36415; 80053; 85025; 86140; 86258; 99212

== ENCOUNTER 2022-06-06 11:17 | Outpatient (REF) | payer OTHER, SELFPAY ==
[2022-06-06 13:39] LABS: Adenovirus F 40/41 Not Detected (Not Detect.); Astrovirus Not Detected (Not Detect.); Cryptosporidium Not Detected (Not Detect.); Cyclospora cayetanensis Not Detected (Not Detect.); E. coli EAEC Not Detected (Not Detect.); E. coli EPEC Not Detected (Not Detect.); E. coli ETEC Not Detected (Not Detect.); E. coli STEC Not Detected (Not Detect.); Entamoeba histolytica Not Detected (Not Detect.); Giardia lamblia Not Detected (Not Detect.); Norovirus GI/GII Not Detected (Not Detect.); Plesiomonas shigelloides Not Detected (Not Detect.); Rotavirus A Not Detected (Not Detect.); Salmonella Not Detected (Not Detect.); Sapovirus Not Detected (Not Detect.); Shigella sp./EIEC Not Detected (Not Detect.); Vibrio Not Detected (Not Detect.); Vibrio Cholerae Not Detected (Not Detect.); Yersinia enterocolitica Not Detected (Not Detect.)
[2022-06-08 10:59] LABS: Campylobacter Detected (Not Detect.)
[2022-06-13 21:21] LABS: Pancreatic Elastase-1 167 mcg/g
== END 2022-06-06 11:18 | disposition home or self-care (01) ==
LOC: HO.LNP 11:17
PROVIDERS: Visit Provider Nurse Practitioner
DX: R19.7 Diarrhea, unspecified (principal)
CPT/HCPCS: 82656; 87507

== ENCOUNTER 2022-06-18 12:12 | Outpatient (REF) | payer OTHER, SELFPAY | END 2022-06-18 12:13 | disposition home or self-care (01) | LOC: HO.LAB 12:12 | PROVIDERS: Visit Provider Nurse Practitioner | DX: K58.1 Irritable bowel syndrome with constipation (principal); K58.0 Irritable bowel syndrome with diarrhea; K21.9 Gastro-esophageal reflux disease without esophagitis; A04.5 Campylobacter enteritis; Z01.82 Encounter for allergy testing | CPT/HCPCS: 36415; 86003; 99212 ==

== ENCOUNTER 2022-06-19 10:00 | Outpatient (REF) | payer OTHER, SELFPAY | END 2022-06-19 10:01 | disposition home or self-care (01) | LOC: HO.LNP 10:00 | PROVIDERS: Visit Provider Nurse Practitioner | DX: Z13.89 Encounter for screening for other disorder (principal) ==

== ENCOUNTER 2022-06-29 10:41 | Outpatient (REF) | payer OTHER, SELFPAY ==
--- NOTE | ~2022-06-29 | MM_ITS ---
EXAMINATION: MM SCREENING DIGITAL BREAST TOMOSYNTHESIS, BILATERAL CLINICAL INFORMATION: Screening. Asymptomatic. The lifetime risk of breast cancer based on the Tyrer-Cuzick Model is 18%. COMPARISON: Mammography: 12/26/2021, 06/23/2021, 07/10/2019, 06/24/2018, left breast ultrasound 12/26/2021 TECHNIQUE: Digital breast tomosynthesis is performed in both the craniocaudal and mediolateral oblique views along with computer-aided detection (CAD). Synthesized 2D images are generated from the tomosynthesis. FINDINGS: There are scattered areas of fibroglandular density (ACR BI-RADS breast composition Category b). There are no significant masses, abnormal calcifications, or other abnormalities. There is a circumscribed nodule consistent with a cyst on prior targeted ultrasound again noted mid 6:00 left breast. No architectural abnormality. The axilla and skin contours are unremarkable. MM/MM tomosynthesis screening BI IMPRESSION: No mammographic evidence of malignancy. ASSESSMENT: BI-RADS 2: Benign RECOMMENDATION: Routine annual mammography screening. This patient's information was entered into a reminder system with a target due date for their next mammogram.
== END 2022-06-29 10:42 | disposition home or self-care (01) ==
LOC: HO.MAMMO 10:41
PROVIDERS: PCP Internal Medicine; Visit Provider Internal Medicine
DX: Z12.31 Encounter for screening mammogram for malignant neoplasm of breast (principal)
CPT/HCPCS: 77063; 77067

== ENCOUNTER 2022-07-04 09:40 | Outpatient (REF) | payer OTHER, SELFPAY | END 2022-07-04 09:41 | disposition home or self-care (01) | LOC: HO.LNP 09:40 | PROVIDERS: Visit Provider Nurse Practitioner | DX: Z13.89 Encounter for screening for other disorder (principal) | CPT/HCPCS: 87507 ==

== ENCOUNTER 2022-07-10 15:05 | Outpatient (REF) | payer OTHER, SELFPAY | END 2022-07-10 15:06 | disposition home or self-care (01) | LOC: HO.LAB 15:05 | PROVIDERS: PCP Internal Medicine; Referring Provider Nurse Practitioner; Visit Provider Physician Assistant | DX: E66.9 Obesity, unspecified (principal); T78.1XXD Other adverse food reactions, not elsewhere classified, subsequent encounter | CPT/HCPCS: 36415; 86003; 99202; 99212 ==

== ENCOUNTER 2022-07-21 09:17 | Outpatient (REF) | payer OTHER, SELFPAY ==
--- NOTE | ~2022-07-21 | XR_ITS ---
EXAMINATION: XR CHEST CLINICAL INFORMATION: Obesity unspecified. COMPARISON: Previous dated 06/19/2020. TECHNIQUE: 2 views of the chest were obtained. FINDINGS: The lateral film demonstrates density in the anterior lung zone which appears reticular and may be atelectasis. I believe there was some density here previously. It is increasing. Lung willis are otherwise felt to be grossly clear and comparable to previous. The cardiac silhouette is not enlarged. The hilar regions do not appear pathologically enlarged. Once again some fullness in the mediastinal windows at the level of the aortic arch but this is similar to previous. XR/XR chest 2V IMPRESSION: Once again density seen in the anterior lung zone on the lateral film which is increasing from previous. This may be ongoing chronic change but I would recommend CT to further fully characterize at this time.
--- NOTE | 2022-07-21 09:40 | ECG_ITS ---
Test Reason : OBESITY Blood Pressure : / mmHG Vent. Rate : 077 BPM Atrial Rate : 077 BPM P-R Int : 122 ms QRS Dur : 082 ms QT Int : 394 ms P-R-T Axes : 047 055 026 degrees QTc Int : 445 ms Normal sinus rhythm Normal ECG When compared with ECG of 15-APR-2005 21:19, No significant change was found Sinus Arrhythmia is no longer Present Referred By: Vahid Blanc Electronically Signed By:RACHEL ARELLANO MD
[2022-07-21 10:46] LABS: Estimated Average Glucose 111 mg/dL; Hemoglobin A1c % 5.5 %
[2022-07-21 10:51] LABS: C Reactive Protein 0.41 mg/dL (< or = 0.50); Cholesterol 185 mg/dL; HDL Cholesterol 32 mg/dL; Iron 98 mcg/dL (30-160); LDL Cholesterol Calculated 109 mg/dl; Percent Iron Saturation 36 % (15-50); Total Iron Binding Capacity 272 mcg/dL (228-428); Triglycerides 223 mg/dL; Unsaturated Iron Binding 174 ug/dL
[2022-07-21 11:03] LABS: Ferritin 128 ng/mL (10-250); TSH reflex Free T4 5.35 uIU/mL (0.32-4.0); Vitamin D 25-OH Total 15.9 ng/mL (>30)
[2022-07-21 11:17] LABS: Folate 6.2 ng/mL (> or = 4.0); Vitamin B12 240 pg/mL (200-900)
[2022-07-21 12:16] LABS: Free T4 (Free Thyroxine) 0.84 ng/dL (0.71-1.85); Insulin 17 uU/mL (2-29)
[2022-07-21 13:07] LABS: Campylobacter Not Detected (Not Detect.); Plesiomonas shigelloides Not Detected (Not Detect.); Salmonella Not Detected (Not Detect.); Vibrio Not Detected (Not Detect.); Vibrio Cholerae Not Detected (Not Detect.); Yersinia enterocolitica Not Detected (Not Detect.)
[2022-07-21 13:08] LABS: Adenovirus F 40/41 Not Detected (Not Detect.); Astrovirus Not Detected (Not Detect.); Cryptosporidium Not Detected (Not Detect.); Cyclospora cayetanensis Not Detected (Not Detect.); E. coli EAEC Not Detected (Not Detect.); E. coli EPEC Not Detected (Not Detect.); E. coli ETEC Not Detected (Not Detect.); E. coli STEC Not Detected (Not Detect.); Entamoeba histolytica Not Detected (Not Detect.); Giardia lamblia Not Detected (Not Detect.); Norovirus GI/GII Not Detected (Not Detect.); Rotavirus A Not Detected (Not Detect.); Sapovirus Not Detected (Not Detect.); Shigella sp./EIEC Not Detected (Not Detect.)
[2022-07-22 13:22] LABS: Calcium (PTHI) 9.5 mg/dL (8.6-10.4); PTHI 94 pg/mL (16-77)
[2022-07-24 18:17] LABS: Vitamin A 42 mcg/dL (38-98)
[2022-07-26 06:42] LABS: Vitamin B1 8 nmol/L (8-30)
== END 2022-07-21 09:18 | disposition home or self-care (01) ==
LOC: HO.XRAY 09:17
PROVIDERS: Nurse Practitioner; PCP Internal Medicine; Visit Provider Physician Assistant Surgical
DX: E66.9 Obesity, unspecified (principal); A04.5 Campylobacter enteritis
CPT/HCPCS: 36415; 71046; 80061; 82306; 82607; 82728; 82746; 83036; 83525; 83540; 83970; 84425; 84439; 84443; 84590; 86140; 87507; 93005

== ENCOUNTER → 2022-07-24 09:48 | Outpatient (BNVA) | payer OTHER, SELFPAY | PROVIDERS: PCP Internal Medicine; Visit Provider Nurse Practitioner Family | DX: M62.830 Muscle spasm of back (principal); G57.12 Meralgia paresthetica, left lower limb; R20.2 Paresthesia of skin; E66.9 Obesity, unspecified; M47.816 Spondylosis without myelopathy or radiculopathy, lumbar region | CPT/HCPCS: 99212 ==

== ENCOUNTER 2022-08-03 11:19 | Outpatient (REF) | payer OTHER, SELFPAY ==
[2022-08-04 13:56] LABS: H Pylori Breath Test Negative (Negative)
== END 2022-08-03 11:20 | disposition home or self-care (01) ==
LOC: HO.LNP 11:19
PROVIDERS: PCP Internal Medicine; Visit Provider Physician Assistant Surgical
DX: E66.9 Obesity, unspecified (principal); J98.11 Atelectasis
CPT/HCPCS: 83013; 99211; 99212

== ENCOUNTER → 2022-08-11 14:22 | Outpatient (BNVA) | payer OTHER, SELFPAY | PROVIDERS: PCP Internal Medicine; Referring Provider Physician Assistant Surgical; Visit Provider Dietitian, Registered | DX: E66.9 Obesity, unspecified (principal) | CPT/HCPCS: 97802 ==

== ENCOUNTER 2022-09-01 06:24 | Outpatient (REF) | payer OTHER, SELFPAY | END 2022-09-01 06:25 | disposition home or self-care (01) | LOC: CF 06:24 | PROVIDERS: Visit Provider Anesthesiology | DX: G57.12 Meralgia paresthetica, left lower limb (principal); M62.830 Muscle spasm of back; R20.2 Paresthesia of skin; E66.9 Obesity, unspecified; M47.816 Spondylosis without myelopathy or radiculopathy, lumbar region | CPT/HCPCS: 64447; J3301 ==

== ENCOUNTER 2022-09-04 08:02 | Outpatient (REF) | payer OTHER, SELFPAY ==
--- NOTE | ~2022-09-04 | CT_ITS ---
EXAMINATION: CT CHEST WITHOUT CONTRAST CLINICAL INFORMATION: Atelectasis COMPARISON: None TECHNIQUE: Multidetector volumetric CT imaging of the chest was done. Axial MIP volume rendering provided. Sagittal and coronal reformatted images were obtained. This CT examination was performed using dose optimization techniques as appropriate, variously including the following: *Automated exposure control *Adjustment of mA and/or kV according to patient size (this includes techniques or standardized protocols for targeted exams where dose is matched to indication/reason for exam; i.e. 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 LUNGS: The lungs are well expanded and clear of acute pneumonic process. There are no pulmonary nodules, mass or consolidation. Platelike atelectasis changes are seen in the right middle lobe and right lower lobe. There is no consolidation. MEDIASTINUM: The thyroid lobes are symmetrical and normal. Central trachea and the bronchi are widely patent. Heart size and the great vessels are normal caliber. No abnormal-sized mediastinal or hilar lymph nodes seen. There is no pericardial effusion. CORONARY ARTERY CALCIFICATION: None visualized on this study. PLEURA: There is no pleural effusion. No pleural mass or thickening. AXILLA: No lymphadenopathy. UPPER ABDOMEN: Visualized liver, spleen, pancreas and bilateral adrenal glands are unremarkable. OSSEOUS STRUCTURES: No aggressive lytic or sclerotic process seen. CT/CT chest wo IV con IMPRESSION: 1. Platelike atelectasis right middle lobe and right lower lobe. 2. No pulmonary nodule, mass or consolidation. Fleischner guidelines were followed.
[2022-09-04 08:37] LABS: Appearance Urine Clear; Color Urine Yellow; Glucose Urine UA Negative (Negative); Leukocyte Esterase Urine Negative (Negative); Nitrite Urine Negative (Negative); Specific Gravity - Urine >= 1.030 (1.005-1.025); Urine Blood Negative (Negative); Urine Ketones Negative (Negative); Urine Protein Negative (Neg-Trace)
== END 2022-09-04 08:03 | disposition home or self-care (01) ==
LOC: HO.CT 08:02
PROVIDERS: Absent Provider Internal Medicine; PCP Internal Medicine; Visit Provider Physician Assistant Surgical
DX: J98.11 Atelectasis (principal); R30.0 Dysuria
CPT/HCPCS: 71250; 81003; 87086

== ENCOUNTER 2022-09-07 11:52 | Outpatient (REF) | payer OTHER, SELFPAY ==
[2022-09-07 13:44] LABS: MANUAL DIFF FLAG NO
[2022-09-07 13:47] LABS: Basophils Percent Auto 0.2 % (0-2); Eosinophils Absolute Auto 0.1 X10*3/uL (0.0-0.4); Eosinophils Percent Auto 0.6 % (0-4); Hematocrit 42.6 % (37.0-47.0); Imm Gran Abs Auto 0.07 X10*3/uL (0.00-0.03); Imm Gran Pct Auto 0.6 % (0.0-0.4); Lymphocytes Absolute Auto 2.9 X10*3/uL (1.2-4.9); Lymphocytes Percent Auto 26.7 % (20-40); Mean Corpuscular HGB Conc 32.9 g/dl (31.0-35.0); Mean Corpuscular Hemoglobin 31.3 pg (27.0-33.0); Mean Corpuscular Volume 95.1 fL (80.0-98.0); Mean Platelet Volume 9.5 fL (9.4-12.3); Monocytes Absolute Auto 0.5 X10*3/uL (0.1-1.2); Monocytes Percent Auto 4.7 % (2-11); Neutrophils Absolute Auto 7.3 x10*3/uL (2.0-8.3); Neutrophils Percent Auto 67.2 % (45-73); Platelet Count 288 X10*3/uL (160-400); Red Blood Count 4.48 X10*6/uL (4.20-5.50); White Blood Count 10.9 X10*3/uL (4.8-10.8)
[2022-09-07 13:57] LABS: Estimated Average Glucose 114 mg/dL; Hemoglobin A1c % 5.6 %
[2022-09-07 14:18] LABS: Alanine Aminotransferase 11 U/L (0-31); Albumin Level 4.4 g/dL (3.5-5.0); Alkaline Phosphatase 87 U/L (39-117); Anion Gap 13 (12-20); Aspartate Amino Transferase 8 U/L (5-31); Bilirubin Total 0.5 mg/dL (0.0-1.0); Blood Urea Nitrogen 25 mg/dL (9-16); Calcium 9.6 mg/dL (8.4-10.2); Carbon Dioxide 24 mmol/L (22-29); Chloride 106 mmol/L (96-108); Estimated Glomerular Filt Rate > 60; Free T4 (Free Thyroxine) 1.07 ng/dL (0.71-1.85); Glucose Random 98 mg/dL (60-115); Potassium 4.7 mmol/L (3.3-5.1); Sodium 138 mmol/L (135-145); Thyroid Stimulating Hormone 4.36 uIU/mL (0.32-4.0); Total Protein 7.2 g/dL (6.5-8.0)
== END 2022-09-07 11:53 | disposition home or self-care (01) ==
LOC: HO.10HDL 11:52
PROVIDERS: Visit Provider Internal Medicine
DX: K21.9 Gastro-esophageal reflux disease without esophagitis (principal); E03.9 Hypothyroidism, unspecified
CPT/HCPCS: 36415; 80053; 83036; 84439; 84443; 85025

== ENCOUNTER → 2022-10-05 11:11 | Outpatient (BNVA) | payer OTHER, SELFPAY | PROVIDERS: PCP Internal Medicine; Visit Provider Nurse Practitioner Family | DX: M47.816 Spondylosis without myelopathy or radiculopathy, lumbar region (principal); G57.12 Meralgia paresthetica, left lower limb; E66.9 Obesity, unspecified; Z68.37 Body mass index [BMI] 37.0-37.9, adult | CPT/HCPCS: 99212 ==

== ENCOUNTER 2022-10-06 15:52 | Outpatient (REF) | payer OTHER, SELFPAY ==
--- NOTE | ~2022-10-06 | US_ITS ---
EXAMINATION: US PELVIS CLINICAL INFORMATION: Urinary incontinence. COMPARISON: 01/19/2020 TECHNIQUE: Ultrasound of the pelvis is performed using both transabdominal and transvaginal transducers along with Doppler. Transvaginal imaging is performed due to inadequate visualization transabdominally. FINDINGS: Uterus: The uterus is anteverted and measures 7.5 x 3.2 x 1.0 cm. No myometrial lesions. The double wall endometrial thickness is 0.1 mm. The uterus is smooth in contour and has normal myometrial echogenicity. No visible fibroid. Adnexa: Right ovary not visualized. Left ovary normal at 4 mL in volume. US/US pelvic and transvaginal IMPRESSION: No fibroids measurable on the current study. Right ovary not visualized.
== END 2022-10-06 15:53 | disposition home or self-care (01) ==
LOC: HO.US 15:52
PROVIDERS: PCP Internal Medicine; Visit Provider Internal Medicine
DX: R32 Unspecified urinary incontinence (principal)
CPT/HCPCS: 76830; 76856

== ENCOUNTER 2022-10-19 09:02 | Outpatient (REF) | payer OTHER, SELFPAY ==
--- NOTE | ~2022-10-19 | FL_ITS ---
EXAMINATION: XR FLUOROSCOPY UPPER GI WITH AIR CLINICAL INFORMATION: Obesity. COMPARISON: None TECHNIQUE: Routine upper GI air-contrast study was performed. FINDINGS: Following oral administration of thick barium and effervescent granules, there is normal propagation of bolus from the oral cavity through the pharynx, esophagus into stomach without any evidence of obstruction, narrowing or stricture. On placing patient supine and prone lying the course, caliber and peristalsis of the stomach is normal. There is moderate gastroesophageal reflux without hiatal hernia. The mucosal pattern of the stomach and the duodenal bulb is normal. FLUOROSCOPY TIME: 3.8 minutes DOSE AREA PRODUCT: 65.534 uGy-m2 (microgray-meter squared) FL/FL upper GI w air IMPRESSION: Unremarkable upper GI air-contrast study.
--- NOTE | ~2022-10-19 | US_ITS ---
EXAMINATION: US COMPLETE ABDOMEN WITH LIVER ELASTOGRAPHY CLINICAL INFORMATION: Obesity COMPARISON: CT chest 09/04/2022, CT abdomen and pelvis 01/12/2019. TECHNIQUE: Real-time imaging of the abdominal viscera. Noninvasive ultrasound liver fibrosis assessment is performed using Milagros ElastPQ point quantification shear wave elastography (2D-SWE) with a C5-2 MHz transducer. Multiple elastography samples are obtained. FINDINGS: PANCREAS: The visualized pancreatic head and body are normal in appearance. The remainder of the pancreas is obscured from visualization by the overlying bowel gas. ABDOMINAL AORTA: The proximal, middle, and distal aortic segments are normal in caliber. INFERIOR VENA CAVA: Visualized portions are normal. LIVER: The liver size is mildly enlarged. Increased echogenicity suggests hepatic steatosis. No focal lesion or intrahepatic biliary duct dilatation. The right lobe measures 16.7 cm in length. The left lobe measures 9.7 cm in length. Portal flow is hepatopedal. Shear wave liver elastography median stiffness is 1.38 m/s (reference: normal median stiffness is 1.3 m/s or less). IQR/median stiffness to assess sampling precision is 0.15 (reference: good quality data set is IQR/median stiffness of 0.15 or less). GALLBLADDER: Status post cholecystectomy. COMMON BILE DUCT: Normal in caliber measuring 0.4 cm in diameter. RIGHT KIDNEY: Normal. No hydronephrosis. No renal calculi or focal parenchymal lesions. The kidney measures 10.9 cm in maximum dimension. LEFT KIDNEY: Normal. No hydronephrosis. No renal calculi or focal parenchymal lesions. The kidney measures 10.1 cm in maximum dimension. SPLEEN: Normal. The spleen measures 8.4 cm in maximum dimension. FREE FLUID: None. US/US abdomen comp w elastography IMPRESSION: 1. Enlarged fatty liver. 2. Liver elastography: In the absence of other known clinical signs, measurements rule out compensated advanced chronic liver disease. If there are known clinical signs, further testing may be needed for confirmation. REFERENCE: Society of Radiologists in Ultrasound Liver Stiffness Thresholds (2020): LIVER STIFFNESS THRESHOLDS: *Liver Stiffness equal or less than 1.3 m/s: High probability of being normal. *Liver Stiffness less than 1.7 m/s: In the absence of other known clinical signs, rules out compensated advanced chronic liver disease. *Liver Stiffness 1.7-2.1 m/s: Suggestive of compensated advanced chronic liver disease but need further test for confirmation. *Liver Stiffness over 2.1 m/s: Rules in compensated advanced chronic liver disease. *Liver Stiffness over 2.4 m/s: Suggestive of clinically significant portal hypertension. QUALITY OF DATA SET: *IQR/Median value equal or less than 0.15 implies a quality data set. *IQR/Median value over 0.15 implies a poor quality data set. SIGNIFICANT CHANGE FROM PRIOR EXAM: Significant change if liver stiffness measurement is 10% or greater from prior exam. OTHER CONSIDERATIONS: The stage of liver fibrosis may be overestimated in the setting of acute hepatitis, liver inflammation, elevated liver function tests, hepatic vascular congestion, obstructive cholestasis, non-fasting state, and infiltrative diseases such as amyloidosis and lymphoma. In some patients with NAFLD, the liver stiffness thresholds for compensated advanced chronic liver disease may be lower. In causes other than viral hepatitis and NAFLD, liver stiffness thresholds are not well established.
== END 2022-10-19 09:03 | disposition home or self-care (01) ==
LOC: HO.US 09:02
PROVIDERS: PCP Internal Medicine; Visit Provider Physician Assistant Surgical
DX: Z01.818 Encounter for other preprocedural examination (principal); E66.9 Obesity, unspecified; K21.9 Gastro-esophageal reflux disease without esophagitis
CPT/HCPCS: 74246; 76705; 76981

== ENCOUNTER 2022-11-26 12:20 | Outpatient (REF) | payer OTHER, SELFPAY ==
[2022-11-26 13:39] LABS: MANUAL DIFF FLAG NO
[2022-11-26 13:55] LABS: Basophils Absolute Auto 0.1 X10*3/uL (0.0-0.2); Basophils Percent Auto 0.6 % (0-2); Eosinophils Absolute Auto 0.1 X10*3/uL (0.0-0.4); Hematocrit 41.3 % (37.0-47.0); Hemoglobin 13.6 g/dl (12.0-16.0); Imm Gran Abs Auto 0.03 X10*3/uL (0.00-0.03); Imm Gran Pct Auto 0.4 % (0.0-0.4); Lymphocytes Absolute Auto 2.4 X10*3/uL (1.2-4.9); Lymphocytes Percent Auto 28.1 % (20-40); Mean Corpuscular HGB Conc 32.9 g/dl (31.0-35.0); Mean Corpuscular Hemoglobin 31.7 pg (27.0-33.0); Mean Corpuscular Volume 96.3 fL (80.0-98.0); Mean Platelet Volume 9.8 fL (9.4-12.3); Monocytes Absolute Auto 0.5 X10*3/uL (0.1-1.2); Monocytes Percent Auto 5.4 % (2-11); Neutrophils Absolute Auto 5.4 x10*3/uL (2.0-8.3); Neutrophils Percent Auto 64.5 % (45-73); Platelet Count 267 X10*3/uL (160-400); Red Blood Count 4.29 X10*6/uL (4.20-5.50); Red Cell Distribution Width 12.3 % (11.0-16.0); White Blood Count 8.4 X10*3/uL (4.8-10.8)
[2022-11-26 15:48] LABS: Anion Gap 13 (12-20); Blood Urea Nitrogen 16 mg/dL (9-16); C Reactive Protein 0.38 mg/dL (< or = 0.50); Calcium 9.2 mg/dL (8.4-10.2); Carbon Dioxide 26 mmol/L (22-29); Chloride 108 mmol/L (96-108); Estimated Glomerular Filt Rate > 60; Glucose Random 88 mg/dL (60-115); Potassium 4.5 mmol/L (3.3-5.1); Sodium 142 mmol/L (135-145)
[2022-11-26 16:09] LABS: Free T4 (Free Thyroxine) 0.86 ng/dL (0.71-1.85); Thyroid Stimulating Hormone 4.52 uIU/mL (0.32-4.0)
== END 2022-11-26 12:21 | disposition home or self-care (01) ==
LOC: HO.10HDL 12:20
PROVIDERS: Visit Provider Internal Medicine
DX: R00.2 Palpitations (principal); R94.6 Abnormal results of thyroid function studies
CPT/HCPCS: 36415; 80048; 83735; 84439; 84443; 85025; 86140

== ENCOUNTER 2022-12-01 06:10 | Outpatient (REF) | payer OTHER, SELFPAY | END 2022-12-01 06:11 | disposition home or self-care (01) | LOC: CF 06:10 | PROVIDERS: Visit Provider Anesthesiology | DX: Z13.89 Encounter for screening for other disorder (principal) ==

== ENCOUNTER 2023-02-02 06:17 | Outpatient (REF) | payer OTHER, SELFPAY | END 2023-02-02 06:18 | disposition home or self-care (01) | LOC: CF 06:17 | PROVIDERS: Visit Provider Anesthesiology | DX: G57.12 Meralgia paresthetica, left lower limb (principal); M62.830 Muscle spasm of back; R20.2 Paresthesia of skin; E66.9 Obesity, unspecified; M47.816 Spondylosis without myelopathy or radiculopathy, lumbar region | CPT/HCPCS: 64450; J3301 ==

== ENCOUNTER → 2023-02-09 14:42 | Outpatient (BNVA) | payer OTHER, SELFPAY | PROVIDERS: PCP Internal Medicine; Visit Provider Obstetrics & Gynecology ==

== ENCOUNTER 2023-03-05 11:39 | Outpatient (REF) | payer OTHER, SELFPAY ==
[2023-03-05 13:28] LABS: MANUAL DIFF FLAG NO
[2023-03-05 13:33] LABS: Basophils Percent Auto 0.5 % (0-2); Eosinophils Absolute Auto 0.1 X10*3/uL (0.0-0.4); Eosinophils Percent Auto 0.9 % (0-4); Hematocrit 43.8 % (37.0-47.0); Hemoglobin 14.2 g/dl (12.0-16.0); Imm Gran Abs Auto 0.03 X10*3/uL (0.00-0.03); Imm Gran Pct Auto 0.4 % (0.0-0.4); Lymphocytes Absolute Auto 2.3 X10*3/uL (1.2-4.9); Mean Corpuscular HGB Conc 32.4 g/dl (31.0-35.0); Mean Corpuscular Hemoglobin 31.4 pg (27.0-33.0); Mean Corpuscular Volume 96.9 fL (80.0-98.0); Mean Platelet Volume 9.4 fL (9.4-12.3); Monocytes Absolute Auto 0.4 X10*3/uL (0.1-1.2); Monocytes Percent Auto 5.1 % (2-11); Neutrophils Absolute Auto 5.1 x10*3/uL (2.0-8.3); Neutrophils Percent Auto 64.1 % (45-73); Platelet Count 277 X10*3/uL (160-400); Red Blood Count 4.52 X10*6/uL (4.20-5.50)
[2023-03-05 13:39] LABS: Estimated Average Glucose 103 mg/dL; Hemoglobin A1c % 5.2 %
[2023-03-05 14:12] LABS: Alanine Aminotransferase 12 U/L (0-31); Albumin Level 4.1 g/dL (3.5-5.0); Alkaline Phosphatase 79 U/L (39-117); Anion Gap 14 (12-20); Aspartate Amino Transferase 12 U/L (5-31); Bilirubin Total 0.6 mg/dL (0.0-1.0); Blood Urea Nitrogen 14 mg/dL (9-16); Carbon Dioxide 20 mmol/L (22-29); Chloride 110 mmol/L (96-108); Cholesterol 206 mg/dL; Estimated Glomerular Filt Rate > 60; Glucose Random 87 mg/dL (60-115); HDL Cholesterol 44 mg/dL; LDL Cholesterol Calculated 140 mg/dl; Potassium 3.9 mmol/L (3.3-5.1); Sodium 140 mmol/L (135-145); Total Protein 7.4 g/dL (6.5-8.0); Triglycerides 110 mg/dL
[2023-03-05 14:29] LABS: Thyroid Stimulating Hormone 1.17 uIU/mL (0.32-4.0)
== END 2023-03-05 11:40 | disposition home or self-care (01) ==
LOC: HO.10HDL 11:39
PROVIDERS: Visit Provider Internal Medicine
DX: E78.00 Pure hypercholesterolemia, unspecified (principal); R73.03 Prediabetes; E03.9 Hypothyroidism, unspecified
CPT/HCPCS: 36415; 80053; 80061; 83036; 84439; 84443; 85025

== ENCOUNTER → 2023-03-15 15:03 | Outpatient (BNVA) | payer OTHER, SELFPAY | PROVIDERS: PCP Internal Medicine; Visit Provider Anesthesiology ==

== ENCOUNTER 2023-03-29 10:53 | Outpatient (AMB) | payer OTHER, SELFPAY ==
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
[2023-03-29 11:01] VITALS: BP 130/74; PULSE 68; RESP 18; O2SAT 98; BMI 38.0
== END 2023-03-29 11:47 | disposition home or self-care (01) ==
PROVIDERS: PCP Internal Medicine; Visit Provider Anesthesiology
DX: M70.62 Trochanteric bursitis, left hip (principal); G57.12 Meralgia paresthetica, left lower limb; R20.2 Paresthesia of skin; M47.816 Spondylosis without myelopathy or radiculopathy, lumbar region; E66.9 Obesity, unspecified; M25.552 Pain in left hip
CPT/HCPCS: 99214

== ENCOUNTER 2023-03-29 10:53 | Outpatient (REF) | payer OTHER, SELFPAY ==
--- NOTE | ~2023-03-29 | XR_ITS ---
EXAMINATION: XR HIP, LEFT CLINICAL INFORMATION: Pain in left hip COMPARISON: [facility] 08/07/2019, pelvis radiographs 03/07/2013 TECHNIQUE: Two views of the left hip. FINDINGS: No fracture. Alignment is anatomic. Hip joint space is maintained. Soft tissues are unremarkable. There are surgical clips overlying the pelvis. XR/XR hip LT min 2V IMPRESSION: Normal left hip.
== END 2023-03-29 10:54 | disposition home or self-care (01) ==
LOC: HO.XRAY 10:53
PROVIDERS: PCP Internal Medicine; Visit Provider Anesthesiology
DX: M25.552 Pain in left hip (principal); M70.62 Trochanteric bursitis, left hip; G57.12 Meralgia paresthetica, left lower limb; R20.2 Paresthesia of skin; M47.816 Spondylosis without myelopathy or radiculopathy, lumbar region; E66.9 Obesity, unspecified
CPT/HCPCS: 73502; 99212

== ENCOUNTER 2023-05-03 15:41 | Outpatient (AMB) | payer OTHER, SELFPAY ==
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
[2023-05-03 15:50] VITALS: BP 130/70; PULSE 76; RESP 16; O2SAT 97; BMI 38.5
== END 2023-05-03 16:18 | disposition home or self-care (01) ==
PROVIDERS: PCP Internal Medicine; Visit Provider Anesthesiology
DX: M47.816 Spondylosis without myelopathy or radiculopathy, lumbar region (principal); G57.12 Meralgia paresthetica, left lower limb; M25.552 Pain in left hip; M70.62 Trochanteric bursitis, left hip; R20.2 Paresthesia of skin; E66.9 Obesity, unspecified
CPT/HCPCS: 20610; 99214

== ENCOUNTER → 2023-05-03 15:41 | Outpatient (BNVA) | payer OTHER, SELFPAY | PROVIDERS: PCP Internal Medicine; Visit Provider Anesthesiology | DX: M25.552 Pain in left hip (principal); M70.62 Trochanteric bursitis, left hip; G57.12 Meralgia paresthetica, left lower limb; R20.2 Paresthesia of skin; M47.816 Spondylosis without myelopathy or radiculopathy, lumbar region; E66.9 Obesity, unspecified; Z68.38 Body mass index [BMI] 38.0-38.9, adult | CPT/HCPCS: 20610; 99212; J1885 ==

== ENCOUNTER 2023-06-11 11:39 | Outpatient (REF) | payer OTHER, SELFPAY ==
[2023-06-11 13:21] LABS: MANUAL DIFF FLAG NO
[2023-06-11 13:28] LABS: Appearance Urine Turbid; Color Urine Yellow; Glucose Urine UA Negative (Negative); Leukocyte Esterase Urine Trace (Negative); Nitrite Urine Negative (Negative); PH 5.5 (5.0-9.0); Specific Gravity - Urine >= 1.030 (1.005-1.025); UMIC TRIGGER UACC YES; Urine Blood Negative (Negative); Urine Ketones Negative (Negative); Urine Protein Negative (Neg-Trace)
[2023-06-11 13:34] LABS: Basophils Percent Auto 0.5 % (0-2); Eosinophils Absolute Auto 0.1 X10*3/uL (0.0-0.4); Eosinophils Percent Auto 0.9 % (0-4); Hemoglobin 14.6 g/dl (12.0-16.0); Imm Gran Abs Auto 0.02 X10*3/uL (0.00-0.03); Imm Gran Pct Auto 0.2 % (0.0-0.4); Lymphocytes Absolute Auto 2.6 X10*3/uL (1.2-4.9); Lymphocytes Percent Auto 29.5 % (20-40); Mean Corpuscular HGB Conc 32.4 g/dl (31.0-35.0); Mean Corpuscular Hemoglobin 31.7 pg (27.0-33.0); Mean Corpuscular Volume 97.8 fL (80.0-98.0); Mean Platelet Volume 9.6 fL (9.4-12.3); Monocytes Absolute Auto 0.5 X10*3/uL (0.1-1.2); Monocytes Percent Auto 5.5 % (2-11); Neutrophils Absolute Auto 5.5 x10*3/uL (2.0-8.3); Neutrophils Percent Auto 63.4 % (45-73); Platelet Count 330 X10*3/uL (160-400); Red Cell Distribution Width 12.1 % (11.0-16.0); White Blood Count 8.7 X10*3/uL (4.8-10.8)
[2023-06-11 13:46] LABS: Bacteria Urine Trace (None Seen); Calcium Oxalate Crystals Urine Present; WBC Urine 0-5 /HPF (0-5)
[2023-06-11 14:05] LABS: Alanine Aminotransferase 16 U/L (0-31); Albumin Level 4.5 g/dL (3.5-5.0); Alkaline Phosphatase 83 U/L (39-117); Anion Gap 14 (12-20); Aspartate Amino Transferase 15 U/L (5-31); Bilirubin Total 0.5 mg/dL (0.0-1.0); Blood Urea Nitrogen 14 mg/dL (9-16); Calcium 10.1 mg/dL (8.4-10.2); Carbon Dioxide 22 mmol/L (22-29); Chloride 108 mmol/L (96-108); Cholesterol 225 mg/dL (<200); Estimated Glomerular Filt Rate > 60; Glucose Fasting 95 mg/dL (60-99); HDL Cholesterol 44 mg/dL (>40); LDL Cholesterol Calculated 150 mg/dL (<100); Sodium 140 mmol/L (135-145); Total Protein 7.9 g/dL (6.5-8.0); Triglycerides 158 mg/dL (<150)
== END 2023-06-11 11:40 | disposition home or self-care (01) ==
LOC: HO.10HDL 11:39
PROVIDERS: Visit Provider Internal Medicine
DX: E78.00 Pure hypercholesterolemia, unspecified (principal); K21.9 Gastro-esophageal reflux disease without esophagitis; K58.9 Irritable bowel syndrome, unspecified
CPT/HCPCS: 36415; 80053; 80061; 81001; 85025; 87086

== ENCOUNTER 2023-07-08 15:53 | Outpatient (REF) | payer OTHER, SELFPAY ==
--- NOTE | ~2023-07-08 | MM_ITS ---
EXAMINATION: MM SCREENING DIGITAL BREAST TOMOSYNTHESIS, BILATERAL CLINICAL INFORMATION: Screening. Asymptomatic. COMPARISON: Mammography: 06/29/2022, 12/26/2021, 06/23/2021, 07/10/2019, 06/24/2018, left breast ultrasound 12/26/2021 TECHNIQUE: Digital breast tomosynthesis is performed in both the craniocaudal and mediolateral oblique views along with computer-aided detection (CAD). Synthesized 2D images are generated from the tomosynthesis. In addition a right MLO nipple in profile view was obtained. FINDINGS: There are scattered areas of fibroglandular density (ACR BI-RADS breast composition Category b). Small circumscribed mass in the left breast 6:00 axis is consistent with a small cyst previously seen. Other small parenchymal densities are unchanged. There are no suspicious masses, suspicious grouped calcifications, or areas of architectural distortion in either breast. The parenchymal pattern is stable from prior exams. No skin or axillary changes. MM/MM tomosynthesis screening BI IMPRESSION: No mammographic evidence of malignancy. Stable benign findings. ASSESSMENT: BI-RADS BI-RADS 2 - Benign Findings RECOMMENDATION: Routine annual mammography screening. 1 year F/U This examination should not preclude the clinical evaluation of a suspicious palpable abnormality. This patient's information was entered into a reminder system with a target due date for their next mammogram.
== END 2023-07-08 15:54 | disposition home or self-care (01) ==
LOC: HO.MAMMO 15:53
PROVIDERS: PCP Internal Medicine; Visit Provider Internal Medicine
DX: Z12.31 Encounter for screening mammogram for malignant neoplasm of breast (principal)
CPT/HCPCS: 77063; 77067

== ENCOUNTER → 2023-07-08 16:00 | Outpatient (BNV) | payer OTHER, SELFPAY | PROVIDERS: PCP Internal Medicine; Visit Provider Radiology Diagnostic Radiology | DX: Z12.31 Encounter for screening mammogram for malignant neoplasm of breast (principal) | CPT/HCPCS: 77063; 77067 ==

== ENCOUNTER 2023-09-10 11:28 | Outpatient (REF) | payer OTHER, SELFPAY ==
[2023-09-10 14:00] LABS: Alanine Aminotransferase 17 U/L (0-31); Aspartate Amino Transferase 16 U/L (5-31); Cholesterol 272 mg/dL (<200); HDL Cholesterol 39 mg/dL (>40); LDL Cholesterol Calculated 187 mg/dL (<100); Triglycerides 233 mg/dL (<150)
[2023-09-10 14:16] LABS: Vitamin B12 464 pg/mL (200-900)
== END 2023-09-10 11:29 | disposition home or self-care (01) ==
LOC: HO.10HDL 11:28
PROVIDERS: Visit Provider Internal Medicine
DX: E78.00 Pure hypercholesterolemia, unspecified (principal); J45.909 Unspecified asthma, uncomplicated; R53.83 Other fatigue
CPT/HCPCS: 36415; 80061; 82550; 82607; 84450; 84460

== ENCOUNTER 2023-10-27 10:01 | Outpatient (REF) | payer OTHER, SELFPAY | END 2023-10-27 10:02 | disposition home or self-care (01) | LOC: HO.LAB 10:01 | PROVIDERS: PCP Internal Medicine; Visit Provider Nurse Practitioner | DX: Z91.09 Other allergy status, other than to drugs and biological substances (principal); K58.1 Irritable bowel syndrome with constipation; D12.6 Benign neoplasm of colon, unspecified; K21.9 Gastro-esophageal reflux disease without esophagitis; K22.10 Ulcer of esophagus without bleeding; R19.7 Diarrhea, unspecified | CPT/HCPCS: 36415; 86003; 99212 ==

== ENCOUNTER 2023-10-27 10:01 | Outpatient (AMB) | payer OTHER, SELFPAY ==
--- NOTE | 2023-10-27 10:10 | A.OFFVIS_ITS ---
Intake Vital Signs 3 10/27/23 10:22 Height 5 ft 2 in Weight 201 lb 15.095 oz BMI 36.9 BP 118/80 Blood Pressure Location Lt brachial Position Sitting Intake Visit Reasons: Follow up Intake Note: Patient presents to in office follow up of IBS and constipation. CC: Patient reports abdominal bloating. She states she needs a refill on her medication. Export Manager Required: No Accompanied by: Self / Same As Patient Allergies Seasonal Allergies Allergy (Unknown, Verified 10/27/23 10:38) Unknown No Known Drug Allergies Allergy (Verified 10/27/23 10:38) Unknown HPI Follow up 2 HPI0 Details Assessment & Plan (1) Campylobacter diarrhea: ?Code(s): A04.5 - Campylobacter enteritis ?Plan: She completed the zithromax but is not feeling better. She continues to have diarrhea. Now we will retest and see if the microbe is eliminated. She is worried about a chicken allergy so we will do RAST allergen.? I explained to her that I do not think this is likely the problem which chicken tends to be more the weight is mass processed and handling in restaurants that causes infection not an allergy to the actual food stuff.? Nevertheless of it makes her feel better we will certainly exclude any severe food allergies. Her pancreatic elastase is low, so we may consider adding CREON, but I want to deal with the acute infection first.? She is worried about pancreatic cancer saying it runs in her family but I explained that pancreatic insufficiency is more closely related to diabetes (which also runs in her family) in that the pancreas simply is not producing its by products sufficiently as we age.? This is generally not a for minor a pancreatic cancer.? In fact the patient has no upper abdominal or back pain and she is obese.? None of this fits that pathology.? A in fact, she expresses frustration that she does not eat much and she still has trouble losing weight. ROV 3 weeks (2) Diarrhea: ?Code(s): R19.7 - Diarrhea, unspecified ? ? ? Orders: Orders CGI Panel Today A04.5 - Campylobac ter enteritis ? CRast Allergen Today R19.7 - Diarrhea, unspecified ? LABS: 07/21/22-[address]: Vahid Mcbride Francis MD ORDERED : GI Panel Test Result Flag Refere nce Campylobacter No t Detected Not Det ect. P. shigell oides Not Detected No t Detect. Salmo jethro Not Detect ed Not Detect. Vibrio Not D etected Not Detect . Vibrio choler ae Not Detected Not D etect. Y. enter ocolit. Not Detected Not Detect. E. coli EAEC Not Dete cted Not Detect. E. coli EPEC Not Detected Not Dete ct. E. coli ETE C Not Detected Not Detect. E. col i STEC Not Detecte d Not Detect. E . coli O157 Not joe licable Not Detect. E. coli c ontaining the O157 antigen are a sub set of Shig a-like toxin-produ cing E. coli (STEC ). Shigella/EIEC Not Detected Not D etect. Cryptosp oridium Not Detected Not Detect. Cyc lospora Not Dete cted Not Detect. E. histolytica Not Detected Not Dete ct. Giardia andrews blia Not Detected Not Detect. Adenov irus Not Detecte d Not Detect. A strovirus Not De tected Not Detect. Norovirus N ot Detected Not De tect. Rotavirus A Not Detected N ot Detect. Keven virus Not Detec maeve Not Detect. RAST PANEL DOES NOT APPEAR TO HAVE BEEN OBTAINED. TODAY'S VISIT This patient has been lost follow-up since 05/2022 Because she has not been coming in she is would of that little yellow gel pill, which I find was Amitiza with a medication review - but this likely got knocked off of the chart r/t her lack of follow up. I will restart this. She is also on simethicone and omeprazole and senna. She says to me honestly ?I have not been getting my medicines because I have not been coming back to see you. ? Apparently this has more to do with all her other medical appointments than a problem with our service. She still has occasional bloating and gas, her pancreatic elastase was low in the past so we should consider Creon. She is only taking the omeprazole qd and asks for the rx to be lowered. She has had a lot of other medical problems, she just had VV surgery. She was d/c'ed by wt mgmt because she can not drink the shakes and is not losing weight under their program. ROV 8 weeks to consider creon after getting bowels moving. [facility] Medical History (Updated 10/27/23 @ 12:59 by ERICA Vasquez) Diarrhea Arthralgia of hip, left Campylobacter diarrhea Epigastric pain Well woman exam Spasm of muscle of lower back Well woman exam Acute left-sided back pain with sciatica ASCUS of cervix with negative high risk HPV Elevated cholesterol History of depression ADD (attention deficit disorder) PTSD (post-traumatic stress disorder) History of methicillin resistant staphylococcus aureus (MRSA) Helicobacter pylori (H. pylori) infection Chronic low back pain Hx of cardiac murmur Asthma Tubular adenoma of colon Irritable bowel syndrome with constipation GERD (gastroesophageal reflux disease) Surgical History History of esophagogastroduodenoscopy (EGD) Hx of section History of endometrial ablation History of tubal ligation History of foot surgery Hx of colonoscopy with polypectomy Hx of cholecystectomy History of appendectomy Family History Father Family history of Alzheimer's disease History of dementia Mother Hx of type 2 diabetes mellitus Social History Household Members: Spouse and Family Housing: House Alcohol intake: current Alcohol intake frequency: holidays/special occasions only Patient Tobacco Use Status: Former Tobacco user Substance Use Type: Marijuana Current occupational status: unemployed Sexual orientation: Straight/Heterosexual Gender identity: Female Female Reproductive History Menstrual Age of Menarche: 12 Review of Systems Const Denies fatigue, Denies fever(s), Denies night sweats, Denies poor appetite, Reports weight gain and Denies weight loss ENT Reports Normal hearing present, Denies dental pain, Denies dysphagia, Denies hearing loss, Denies mouth pain, Denies odynophagia, Denies throat swelling, Denies tongue swelling and Reports other (Dentition adequate) Card Reports no additional complaints Resp Reports no additional complaints GI Details: Denies abdominal pain, Denies melena, Reports bloating, Denies hematochezia, Reports constipation, Denies GI cramping, Denies dysphagia, Denies excessive flatus, Denies early satiety, Reports heartburn, Denies diarrhea, Denies nausea, Denies odynophagia, Denies vomiting and Denies hematemesis Skin/Breast Denies pruritus, Denies lesions, Denies rash and Denies jaundice Neuro Reports Normal hearing present and Denies Abnormal speech present Endo Denies fatigue Aller/Immun Denies throat swelling and Denies tongue swelling Physical Exam Vital Signs: Last Vital Signs BP 118/80 10/27/23 10:22 BMI result Body Mass Index 36.9 Const General: cooperative, no acute distress, well developed and well groomed Nutritional Appearance: well nourished and obese Orientation/consciousness: oriented to person, oriented to place and oriented to time Limitations: No language barrier HEENT Head: Yes normocephalic and Yes atraumatic Eyes General: appearance normal, both eyes and all related structures Pupils: Equal, round and reactive pupils present Neck Neck: Yes normal visual inspection and Yes no lymphadenopathy Thyroid: Thyroid normal Resp Effort & Inspection: normal respiratory effort and able to speak in complete sentences Auscultation: clear to auscultation bilaterally Cardio Rate: regular rate Rhythm: regular rhythm Heart sounds: Normal, physiologic split S2 sound present Peripheral pulses: radial pulses present and posterior tibial pulses present GI Inspection: No distended, Yes Abdominal panniculus present and Yes obesity Palpation (GI): Soft to palpation, nontender, no guarding, not rigid and No hepatosplenomegaly present Percussion: Yes normal to percussion Auscultation: normal bowel sounds Rectal Exam - Female: deferred Abdomen image: 2 1. linear bruise Skin General skin exam: no rashes or lesions noted, turgor normal, skin not dry, no jaundice, No spider nevi and no striae Rashes: no rashes Nails: normal Neuro General: oriented to person, oriented to place and oriented to time Cranial nerves: Yes Equal, round and reactive pupils present and Yes Normal hearing present Speech: No Abnormal speech present Extrem Other: wrap in right ankle - she just had cortisone inj. General: No clubbing, No cyanosis and Yes edema (left ankle mild eating) Psych Appearance: grossly normal and well kempt Mental Status: mental status grossly normal Speech and movement: Normal speech and movement present Affect: normal affect Attitude: cooperative Thought process: Normal thought process present and not confabulating Thought content: Normal thought content present Insight: Limited insight present (Psych) Judgement: Limited judgement present (Psych) Assessment & Plan Assessment & Plan (1) Irritable bowel syndrome with constipation: Code(s): K58.1 - Irritable bowel syndrome with constipation (2) Tubular adenoma of colon: Comment: 2021=TA scope repeat in 5 years, NEEDS SUPREP OR LOW VOLUME PREP Code(s): D12.6 - Benign neoplasm of colon, unspecified (3) GERD (gastroesophageal reflux disease): Code(s): K21.9 - Gastro-esophageal reflux disease without esophagitis (4) Erosive esophagitis: Code(s): K22.10 - Ulcer of esophagus without bleeding (5) 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 I will restart this. She is also on simethicone and omeprazole and senna. She says to me honestly ?I have not been getting my medicines because I have not been coming back to see you. ? Apparently this has more to do with all her other medical appointments than a problem with our service. She still has occasional bloating and gas, her pancreatic elastase was low in the past so we should consider Creon. She is only taking the omeprazole qd and asks for the rx to be lowered. She has had a lot of other medical problems, she just had VV surgery. She was d/c'ed by wt mgmt because she can not drink the shakes and is not losing weight under their program. ROV 8 weeks to consider creon after getting bowels moving. Orders: Orders 2 Rast Allergen Today R19.7 - Diarrhea, unspecified Medications: New 2 lubiprostone (Amitiza) 24 mcg PO BID 30 days 60 caps 6RF Refilled 2 sennosides (senna) 17.2 mg (2 x 8.6 mg) PO BEDTIME 90 days PRN 180 tabs 0RF for constipation simethicone (Gas Relief (simethicone)) 125 mg PO TID 30 days PRN 90 tabs 3RF abdominal distention MDD 3 K21.9 - Gastro-esophageal reflux disease without esophagitis, K58.1 - Irritable bowel syndrome with constipation Coding Level of Care Code Est Pt Level 3 (26346) Diagnoses Irritable bowel syndrome with constipation K58.1 Tubular adenoma of colon D12.6 GERD (gastroesophageal reflux disease) K21.9 Erosive esophagitis K22.10 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
[2023-10-27 10:22] VITALS: BP 118/80; BMI 36.9
== END 2023-10-27 11:16 | disposition home or self-care (01) ==
PROVIDERS: PCP Internal Medicine; Visit Provider Nurse Practitioner
DX: K58.2 Mixed irritable bowel syndrome (principal); Z86.010 Personal history of colon polyps; K21.9 Gastro-esophageal reflux disease without esophagitis; K22.10 Ulcer of esophagus without bleeding; K22.70 Barrett's esophagus without dysplasia
CPT/HCPCS: 99213

== ENCOUNTER 2024-01-21 08:54 | Inpatient (IN) | payer OTHER, SELFPAY ==
--- NOTE | ~2024-01-21 | CT_ITS ---
EXAMINATION: CT ABDOMEN AND PELVIS WITH CONTRAST CLINICAL INFORMATION: Diffuse abdominal pain with nausea and vomiting. COMPARISON: CT abdomen/pelvis 01/12/2019. TECHNIQUE: Multidetector volumetric images were obtained from the superior aspect of the liver through the pubic symphysis following administration 85 mL of Omnipaque 350 intravenous contrast. Sagittal and coronal reformatted images were obtained on the technologist's workstation. Oral contrast: No This CT examination was performed using dose optimization techniques as appropriate, variously including the following: *Automated exposure control *Adjustment of mA and/or kV according to patient size (this includes techniques or standardized protocols for targeted exams where dose is matched to indication/reason for exam; i.e. extremities or head) *Use of iterative reconstruction technique DLP: 856 mGy-cm FINDINGS: LUNG BASES: Subsegmental atelectasis and/or scarring. No focal consolidation or pleural effusion. LIVER, GALLBLADDER, AND BILIARY TREE: The liver is normal in size, shape, and attenuation. No focal hepatic lesion or biliary ductal dilatation is present. Cholecystectomy. PANCREAS: Unremarkable. SPLEEN: Unremarkable. ADRENAL GLANDS: Unremarkable. KIDNEYS AND URETERS: The kidneys are normal in size, shape, and attenuation. No hydronephrosis, hydroureter, or calculi seen. No perinephric stranding. BLADDER: Partially underdistended limiting evaluation of wall thickening. No intraluminal calculi. No perivesical fat stranding. GASTROINTESTINAL TRACT: Trace hiatal hernia. Multiple dilated fluid-filled loops of small bowel measuring up to 3.3 cm in diameter with transition downstream from a point of fecalization in the mid to distal ileum (images 70 through 54 series 3). The terminal ileum is decompressed. There is trace interloop free fluid and mesenteric stranding. No clear hernia or mass leading to the obstruction. Postoperative changes from appendectomy. No pericolonic inflammatory changes. No evidence of pneumatosis or free air. No organized extraluminal collection. ABDOMINAL WALL: No significant hernia is appreciated. LYMPH NODES: Scattered slightly prominent mesenteric lymph nodes measuring up to 8 mm in short axis (4:425). VASCULAR: Mild atherosclerotic disease. Normal caliber of the abdominal aorta. PELVIC VISCERA: Small amount of free fluid. Simple appearing cyst in the left ovary measuring 2 cm, almost certainly benign and for which no imaging follow-up is recommended. Redemonstration of surgical clip versus calcification in the lower abdomen just superior to the uterus (3:75). OSSEOUS STRUCTURES: No acute or aggressive appearing osseous findings. Degenerative changes of the spine. CT/CT abdomen pelvis w IV con IMPRESSION: Findings are most consistent with a small bowel obstruction transitioning in the mid to distal ileum with a small amount of interloop free fluid as well as mild mesenteric stranding which could indicate a higher degree of obstruction. Recommend surgical consultation. Scattered prominent mesenteric lymph nodes are most likely reactive in nature.
--- NOTE | ~2024-01-21 | XR_ITS ---
EXAMINATION: XR ABDOMEN KUB CLINICAL INDICATION: Follow-up small bowel obstruction COMPARISON: CT abdomen pelvis 01/21/2024 TECHNIQUE: AP view of the abdomen. FINDINGS: There is less stool in the colon when compared to yesterday's CT scan. There is some air-filled loops of small bowel seen the largest measuring about 3 cm minimally increased when compared to yesterday's crew leader gluing CT image. Surgical clips are present in the pelvis and right abdomen. XR/XR KUB IMPRESSION: Decreased stool in the colon. Minimal increase in small bowel distention.
--- NOTE | ~2024-01-21 | FL_ITS ---
EXAMINATION: FL SMALL BOWEL SERIES CLINICAL INFORMATION: Concern for small bowel obstruction COMPARISON: CT scan 01/21/2024; KUB radiograph 01/22/2024. TECHNIQUE: Following a utility driver image of the abdomen, Gastrografin contrast was administered orally, and interval abdominal radiographs were performed to assess for contrast progression through the small bowel. Following contrast transit through the small bowel and into the colon, the patient was placed on the fluoroscopy table, and multiple spot images were obtained. FINDINGS: Last Inserter image: Normal bowel gas pattern. No dilated loops of bowel noted. No evidence of free intraperitoneal air. Surgical clips are present in the right upper and right lower quadrant, as well as overlying the inferior sacrum. Lung bases are clear. Heart size is normal. Minor levoconvex lumbar scoliosis. Normal-appearing SI joints and hip joints. No abnormal calcifications or organomegaly. 30 minute image: demonstrates contrast material within the most distal esophagus, a small sliding hiatus hernia, the stomach, duodenal sweep, jejunum and entering the ileum. Normal small bowel ileal and jejunal fold pattern without thickening. Normal small bowel diameter. Contrast did reach the ascending colon/cecum at the 30 minute maggy. There is normal albeit slightly brief transit time of contrast material through the small bowel, with contrast present in the colon by the 30 minutes. Small bowel loops are of normal caliber throughout the abdomen and pelvis. No dilated loops are evident. The jejunal and ileal fold patterns are normal, without evidence of abnormal thickening. No fixed regions of luminal narrowing are seen to suggest stricturing. 1 hour image: Linear artifact is noted overlying the liver. There is contrast seen in the descending, transverse, and descending colon, but has not progressed into the rectum. Terminal ileum is located immediately above the right lower quadrant surgical clips and appears normal, and spot compression images fluoroscopically demonstrated no abnormalities. FLUOROSCOPY TIME: 28 seconds DOSE AREA PRODUCT: 726 uGy-m2 (microgray-meter squared) FL/FL small bowel follow through IMPRESSION: 1. No evidence of persistent abnormal dilated loops of small bowel or colon. Previously seen minimally dilated loops of proximal small bowel as seen on the recent CT scan have resolved, which had an appearance most consistent with minor ileal adhesions. 2. Normal jejunal and ileal mucosal patterns noted. No strictures identified or gross tethering. 3. Small type I hiatus hernia suspected. 4. Mildly rapid transit time of contrast into the ileocecal valve at 30 minutes, nonspecific. 5. Cholecystectomy clips, and surgical clips in the right lower quadrant overlying the right iliac wing, as well as overlying the central inferior sacrum. 6. Minimal levoconvex lumbar scoliosis. 7. No colonic abnormality. This procedure was performed by Iván Azul PA-C, and supervised by Dr. Tan
[2024-01-21 08:58] VITALS: BP 141/86; PULSE 96; RESP 20; TEMP 36.3; O2SAT 96; BMI 38.1
--- NOTE | 2024-01-21 13:55 | ED_ITS ---
HPI - General Adult General Chief complaint: Abdominal Pain Stated complaint: vomiting Time Seen by Provider: 01/21/24 14:11 Source: patient Mode of arrival: ambulatory History of Present Illness HPI narrative: 53-year-old female who presents with onset diffuse abdominal discomfort last night, crampy in nature, denies dysuria and states that since this morning she has had multiple episodes of nausea and vomiting, no diarrhea and denies flatus passage, surgical history significant for cholecystectomy/appendectomy/C- section. Related Data Home Medications ?Medication ?Instructions ?Recorded ?Confirmed clonazepam 0.5 mg tablet 0.5 mg PO BID PRN Anxiety 10/02/20 10/26/22 zolpidem 10 mg tablet 10 mg PO BEDTIME PRN Sleep 11/01/20 10/26/22 lorazepam 0.5 mg tablet 0.5 mg PO ONCE PRN anxiety 06/04/22 10/26/22 simvastatin 10 mg tablet 10 mg PO BEDTIME 06/04/22 10/26/22 metronidazole 0.75 % topical cream appl topical BID 10/05/22 10/26/22 azelaic acid 15 % topical gel topical DAILY 10/27/23 cetirizine 10 mg tablet 10 mg PO DAILY 10/27/23 dextroamphetamine-amphetamine 20 1 tab PO BID 10/27/23 mg tablet triamcinolone acetonide 0.1 % topical 10/27/23 topical ointment Previous Rx's ?Medication ?Instructions ?Recorded cholecalciferol (vitamin D3) 125 125 mcg PO DAILY #90 caps 07/21/22 mcg (5,000 unit) capsule mecobalamin (vitamin B12) 1,000 1,000 mcg sublingual DAILY #30 tabs 07/21/22 mcg disintegrating tablet,sublingual tizanidine 4 mg tablet 4 mg PO BID PRN for muscle spasm 02/04/23 #60 tabs omeprazole 40 mg capsule,delayed 40 mg PO BID #180 caps 06/07/23 release lubiprostone 24 mcg capsule 24 mcg PO BID 30 days #60 caps 10/27/23 (Amitiza) sennosides 8.6 mg tablet (senna) 17.2 mg (2 x 8.6 mg) PO BEDTIME 10/27/23 PRN for constipation 90 days #180 tabs simethicone 125 mg chewable tablet 125 mg PO TID PRN abdominal 10/27/23 (Gas Relief (simethicone)) distention 30 days #90 tabs Allergies Allergy/AdvReac Type Severity Reaction Status Date / Time Seasonal Allergies Allergy Unknown Unknown Verified 01/21/24 08:59 No Known Drug Allergies Allergy Unknown Verified 10/27/23 10:38 Review of Systems 2 Review of Systems: Pertinent positives and negatives as stated in HPI [facility] Past Medical History Source: nursing notes reviewed Medical History Diarrhea Arthralgia of hip, left Campylobacter diarrhea Epigastric pain Well woman exam Spasm of muscle of lower back Well woman exam Acute left-sided back pain with sciatica ASCUS of cervix with negative high risk HPV Elevated cholesterol History of depression ADD (attention deficit disorder) PTSD (post-traumatic stress disorder) History of methicillin resistant staphylococcus aureus (MRSA) Helicobacter pylori (H. pylori) infection Chronic low back pain Hx of cardiac murmur Asthma Tubular adenoma of colon Irritable bowel syndrome with constipation GERD (gastroesophageal reflux disease) Surgical History History of esophagogastroduodenoscopy (EGD) Hx of section History of endometrial ablation History of tubal ligation History of foot surgery Hx of colonoscopy with polypectomy Hx of cholecystectomy History of appendectomy Family History Family History Father Family history of Alzheimer's disease History of dementia Mother Hx of type 2 diabetes mellitus Social History Social History Household Members: Spouse and Family Housing: House Alcohol intake: current Alcohol intake frequency: a few times a month Patient Tobacco Use Status: Former Tobacco user Smoked in Last 30 Days: No Use of substances other than those prescribed or required for medical reasons: Yes Substance Use Type: Marijuana Advance Directives: No Advance Directives Information Provided: No Patient : No Current occupational status: unemployed Sexual orientation: Straight/Heterosexual Gender identity: Female Physical Exam ED Vital Signs: Vital Signs - 24 hr 01/21/24 08:58 01/21/24 13:56 01/21/24 16:04 Temperature 97.3 F 97.6 F 98.5 F Pulse Rate 96 87 81 Respiratory Rate 20 18 16 Blood Pressure 141/86 H 149/100 H 147/82 H Pulse Oximetry 96 98 98 Oxygen Delivery Method Room Air Room Air Room Air BMI result Body Mass Index 38.1 VITAL SIGNS: Reviewed. GENERAL: Well developed, well nourished, in no acute distress. HEAD: Normocephalic/atraumatic EYES: PERRLA, EOMI EARS: Ext canals without abnormality NOSE: Nares patent bilateral OROPHARYNX: no oral lesions noted, posterior pharynx clear NECK: Supple, no adenopathy LUNGS: Normal breath sounds. No adventitious sounds or accessory muscle use. SpO2<98> CARDIOVASCULAR: Regular rate and rhythm without noted murmurs ABDOMEN: Soft, diffuse abdominal discomfort, no rebound and no hernias appreciated, non-distended with bowel sounds. MUSCULOSKELETAL: No tenderness, deformities, or effusions noted on gross inspection. EXTREMITIES: No cyanosis, clubbing or edema. SKIN: Inspection of the skin reveals no rashes NEUROLOGIC: Alert and oriented x 4. Strength and sensation to light touch were grossly intact x 4. Course Course Course Narrative: This is a rapid medical exam performed by Melly Gold NP: Additional HPI, ROS, PE not included below will be deferred to primary provider. Patient brought back up to triage for reassessment at 13:55. She reports nausea, vomiting, diarrhea, and diffuse abdominal pain/burning since 6pm last night. Reports history of acid reflux. Medications Administered Discontinued Medications Generic Name Dose Route Start Last Admin Trade Name Freq PRN Reason Stop Dose Admin Sodium Chloride 1,000 mls @ 999 mls/hr 01/21/24 14:30 01/21/24 17:08 Ns IV 01/21/24 15:30 Infused .Q1H1M WADE Infusion Iohexol 100 ml 01/21/24 15:54 01/21/24 15:54 Iohexol 350 Mg/Ml 100 Ml Infus..Btl IV 01/21/24 15:55 85 ml ONCE ONE Administration Ondansetron HCl 4 mg 01/21/24 14:28 01/21/24 15:39 Ondansetron Hcl 4 Mg/2 Ml Vial IVPUSH 01/21/24 14:29 4 mg ONCE ONE Administration Medical Decision Making Medical Decision Making [facility] Narrative: 1425: 53-year-old female with history and clinical presentation, DDX: Pancreatitis, gastritis, gastroenteritis, obstruction, diverticulitis, UTI, renal colic. INTERVENTION: IV fluids, antiemetics, pain medications. I reviewed all investigations and hematologic indices demonstrate noninfectious leukocytosis considered to be reactive/stress related and no history of anemia or thrombocytopenia. Chemistry indices are grossly within normal limits without any noted derangements. Urinalysis is negative for UTI and hematuria. Viral testing is negative for influenza/RSV/COVID-19. CT scan significant for small bowel obstruction with transition in mid to distal ileum. Patient remains hemodynamically stable, made NPO. 1700: I discussed case with General surgery, Dr. Hall, who accepts admission. Differential Diagnosis Differential Diagnoses: The differential diagnosis associated with the presentation includes Please see the discussion above Admission/Observation Consideration of admission/observation: Escalation of care including admission/observation considered Please see the discussion above Consult Healthcare Provider Management of the patient was discussed with: Method Consultant Lab Data MDM Lab Attestation statement: I reviewed the patient's lab results. Please see the discussion above 01/21/24 14:08 01/21/24 14:07 Labs: Lab Results 01/21/24 01/21/24 01/21/24 Range/Units 14:06 14:07 14:08 WBC 13.7 H (4.8-10.8) X10*3/uL RBC 4.54 (4.20-5.50) X10*6/uL Hgb 14.6 (12.0-16.0) g/dl Hct 42.7 (37.0-47.0) % MCV 94.1 (80.0-98.0) fL MCH 32.2 (27.0-33.0) pg MCHC 34.2 (31.0-35.0) g/dl RDW 12.2 (11.0-16.0) % Plt Count 309 (160-400) X10*3/uL MPV 9.0 L (9.4-12.3) fL Immature Gran % (Auto) 0.4 (0.0-0.4) % Neut % (Auto) 73.8 H (45-73) % Lymph % (Auto) 21.4 (20-40) % [place] % (Auto) 3.8 (2-11) % Eos % (Auto) 0.3 (0-4) % Baso % (Auto) 0.3 (0-2) % Lymph # (Auto) 2.9 (1.2-4.9) X10*3/uL [place] # (Auto) 0.5 (0.1-1.2) X10*3/uL Eos # (Auto) 0.0 (0.0-0.4) X10*3/uL Baso # (Auto) 0.0 (0.0-0.2) X10*3/uL Abs Immat Gran (auto) 0.05 H (0.00-0.03) X10*3/uL Absolute Neuts (auto) 10.1 H (2.0-8.3) x10*3/uL Absolute Nucleated RBC 0.000 (0.0-0.012) X10*3/uL Nucleated RBC % (auto) 0.0 (0.0-0.2) /100WBC Sodium 140 (135-145) mmol/L Potassium 3.5 (3.3-5.1) mmol/L Chloride 106 (96-108) mmol/L Carbon Dioxide 23 (22-29) mmol/L Anion Gap 15 (12-20) BUN 12 (9-16) mg/dL Creatinine 0.81 (0.5-1.4) mg/dL Estim Creat Clear Calc 86.0 Estimated GFR > 60 Random Glucose 103 (60-115) mg/dL Lactic Acid (0.5-2.0) mmol/L Calcium 9.8 (8.4-10.2) mg/dL Magnesium 2.2 (1.6-2.6) mg/dL Total Bilirubin 0.6 (0.0-1.0) mg/dL AST 21 (5-31) U/L ALT 24 (0-31) U/L Alkaline Phosphatase 91 (39-117) U/L Total Protein 7.9 (6.5-8.0) g/dL Albumin 4.4 (3.5-5.0) g/dL Lipase 27 (8-78) U/L Urine Color Dark Yellow Urine Appearance Clear Urine pH 6.0 (5.0-9.0) Ur Specific [place] >= 1.030 H (1.005-1.025) Urine Protein Trace (Neg-Trace) mg/dL Urine Glucose (UA) Negative (Negative) mg/dL Urine Ketones 40 (Negative) mg/dL Urine Blood Negative (Negative) Urine Nitrite Negative (Negative) Ur Leukocyte Esterase Negative (Negative) Influenza Type A (PCR) NEGATIVE (Negative) Influenza Type B (PCR) NEGATIVE (Negative) RSV RNA Qual (PCR) NEGATIVE (Negative) SARS-CoV-2 RNA (RT-PCR) NEGATIVE (Negative) 01/21/24 Range/Units 14:44 WBC (4.8-10.8) X10*3/uL RBC (4.20-5.50) X10*6/uL Hgb (12.0-16.0) g/dl Hct (37.0-47.0) % MCV (80.0-98.0) fL MCH (27.0-33.0) pg MCHC (31.0-35.0) g/dl RDW (11.0-16.0) % Plt Count (160-400) X10*3/uL MPV (9.4-12.3) fL Immature Gran % (Auto) (0.0-0.4) % Neut % (Auto) (45-73) % Lymph % (Auto) (20-40) % [place] % (Auto) (2-11) % Eos % (Auto) (0-4) % Baso % (Auto) (0-2) % Lymph # (Auto) (1.2-4.9) X10*3/uL [place] # (Auto) (0.1-1.2) X10*3/uL Eos # (Auto) (0.0-0.4) X10*3/uL Baso # (Auto) (0.0-0.2) X10*3/uL Abs Immat Gran (auto) (0.00-0.03) X10*3/uL Absolute Neuts (auto) (2.0-8.3) x10*3/uL Absolute Nucleated RBC (0.0-0.012) X10*3/uL Nucleated RBC % (auto) (0.0-0.2) /100WBC Sodium (135-145) mmol/L Potassium (3.3-5.1) mmol/L Chloride (96-108) mmol/L Carbon Dioxide (22-29) mmol/L Anion Gap (12-20) BUN (9-16) mg/dL Creatinine (0.5-1.4) mg/dL Estim Creat Clear Calc Estimated GFR Random Glucose (60-115) mg/dL Lactic Acid 1.1 (0.5-2.0) mmol/L Calcium (8.4-10.2) mg/dL Magnesium (1.6-2.6) mg/dL Total Bilirubin (0.0-1.0) mg/dL AST (5-31) U/L ALT (0-31) U/L Alkaline Phosphatase (39-117) U/L Total Protein (6.5-8.0) g/dL Albumin (3.5-5.0) g/dL Lipase (8-78) U/L Urine Color Urine Appearance Urine pH (5.0-9.0) Ur Specific [place] (1.005-1.025) Urine Protein (Neg-Trace) mg/dL Urine Glucose (UA) (Negative) mg/dL Urine Ketones (Negative) mg/dL Urine Blood (Negative) Urine Nitrite (Negative) Ur Leukocyte Esterase (Negative) Influenza Type A (PCR) (Negative) Influenza Type B (PCR) (Negative) RSV RNA Qual (PCR) (Negative) SARS-CoV-2 RNA (RT-PCR) (Negative) Radiology Impression Discussion of test interpretation with radiology: I have reviewed the radiologist's reading. Radiologist Impression: Please see the discussion above External Record Review External record reviewed: Outpatient record, Prior outpatient labs and Prior outpatient radiology Chronic Conditions GERD, Barretts esophagus Critical Care Time Critical Care Time Critical Care Time: Yes Total Critical Care Time: 45 Attestation: I personally attest to this time spent taking care of the patient. Discharge Plan Discharge Clinical Impression: SBO (small bowel obstruction) Patient Disposition: Admitted As Inpatient Print Language: Portuguese
[2024-01-21 13:56] VITALS: BP 149/100; PULSE 87; RESP 18; TEMP 36.4; O2SAT 98
[2024-01-21 14:13] LABS: MANUAL DIFF FLAG NO
[2024-01-21 14:14] LABS: Basophils Percent Auto 0.3 % (0-2); Eosinophils Percent Auto 0.3 % (0-4); Hematocrit 42.7 % (37.0-47.0); Hemoglobin 14.6 g/dl (12.0-16.0); Imm Gran Abs Auto 0.05 X10*3/uL (0.00-0.03); Imm Gran Pct Auto 0.4 % (0.0-0.4); Lymphocytes Absolute Auto 2.9 X10*3/uL (1.2-4.9); Lymphocytes Percent Auto 21.4 % (20-40); Mean Corpuscular HGB Conc 34.2 g/dl (31.0-35.0); Mean Corpuscular Hemoglobin 32.2 pg (27.0-33.0); Mean Corpuscular Volume 94.1 fL (80.0-98.0); Monocytes Absolute Auto 0.5 X10*3/uL (0.1-1.2); Monocytes Percent Auto 3.8 % (2-11); Neutrophils Absolute Auto 10.1 x10*3/uL (2.0-8.3); Neutrophils Percent Auto 73.8 % (45-73); Platelet Count 309 X10*3/uL (160-400); Red Blood Count 4.54 X10*6/uL (4.20-5.50); Red Cell Distribution Width 12.2 % (11.0-16.0); White Blood Count 13.7 X10*3/uL (4.8-10.8)
[2024-01-21 14:19] LABS: Appearance Urine Clear; Color Urine Dark Yellow; Glucose Urine UA Negative (Negative); Leukocyte Esterase Urine Negative (Negative); Nitrite Urine Negative (Negative); Specific Gravity - Urine >= 1.030 (1.005-1.025); Urine Blood Negative (Negative); Urine Ketones 40 mg/dL (Negative); Urine Protein Trace mg/dL (Neg-Trace)
[2024-01-21 14:29] LABS: Alanine Aminotransferase 24 U/L (0-31); Albumin Level 4.4 g/dL (3.5-5.0); Alkaline Phosphatase 91 U/L (39-117); Anion Gap 15 (12-20); Aspartate Amino Transferase 21 U/L (5-31); Bilirubin Total 0.6 mg/dL (0.0-1.0); Blood Urea Nitrogen 12 mg/dL (9-16); Calcium 9.8 mg/dL (8.4-10.2); Carbon Dioxide 23 mmol/L (22-29); Chloride 106 mmol/L (96-108); Estimated Glomerular Filt Rate > 60; Glucose Random 103 mg/dL (60-115); Magnesium 2.2 mg/dL (1.6-2.6); Potassium 3.5 mmol/L (3.3-5.1); Sodium 140 mmol/L (135-145); Total Protein 7.9 g/dL (6.5-8.0)
[2024-01-21 14:56] LABS: Influenza A PCR NEGATIVE (Negative); Influenza B PCR NEGATIVE (Negative); Resp Syncy Virus RNA Qual PCR NEGATIVE (Negative); SARS COV2 PCR INHOUSE NEGATIVE (Negative)
[2024-01-21 15:00] LABS: Lactic Acid 1.1 mmol/L (0.5-2.0)
[2024-01-21 15:36] LABS: Lipase 27 U/L (8-78)
[2024-01-21] MEDS: 0.9 % Sodium Chloride 1,000 ML 999 ML IV (15:39)
[2024-01-21] MEDS: ondansetron HCL 4 MG/2 ML VIAL IVPUSH (15:39)
[2024-01-21] MEDS: iohexoL 350 MG/ML 100 ML INFUS..BTL IV (15:54)
[2024-01-21 16:04] VITALS: BP 147/82; PULSE 81; RESP 16; TEMP 36.9; O2SAT 98
[2024-01-21] MEDS: Acetaminophen 325 MG TABLET 975 MG PO (17:14)
[2024-01-21] MEDS: Ketorolac Tromethamine 30 MG/ML VIAL 15 MG IVPUSH (17:15)
--- NOTE | 2024-01-21 17:17 | P.HPGS_ITS ---
History of Present Illness History of Present Illness Date of Service: 01/23/24 Chief complaint: partial small bowel obstruction Narrative: Amy Corona is a 53 year old female here in the ED for abdominal pain. She says that her symptoms started last night. She describes more of diffuse abdominal discomfort. She describes multiple episdoes of vomitting this morning. The last episode of vomitting was at 11 a.m. She had a bowel movement this morning. She denies flatus today. She has a hx of Csection, appnedectomy and cholecystectomy (laparoscopic) in the . She says her pain leve currently is mild. Review of Systems Constitutional: Constitutional: Denies chills and Denies fever(s) Cardiovascular: Cardiovascular: Denies chest pain, Denies dyspnea and Denies dyspnea on exertion Respiratory: Respiratory: Denies cough, Denies dyspnea and Denies dyspnea on exertion Gastrointestinal: Gastrointestinal: Denies hematochezia and Denies change in bowel habits Genitourinary: Genitourinary: Denies hematuria Musculoskeletal: Musculoskeletal: Denies back pain and Denies limited range of motion Neurologic: Denies focal weakness and Denies convulsions Psychiatric: Psychiatric: Denies depression and Denies mood swings PMFSH Past Medical History Medical History Diarrhea Arthralgia of hip, left Campylobacter diarrhea Epigastric pain Well woman exam Spasm of muscle of lower back Well woman exam Acute left-sided back pain with sciatica ASCUS of cervix with negative high risk HPV Elevated cholesterol History of depression ADD (attention deficit disorder) PTSD (post-traumatic stress disorder) History of methicillin resistant staphylococcus aureus (MRSA) Helicobacter pylori (H. pylori) infection Chronic low back pain Hx of cardiac murmur Asthma Tubular adenoma of colon Irritable bowel syndrome with constipation GERD (gastroesophageal reflux disease) Family History Family History Father Family history of Alzheimer's disease History of dementia Mother Hx of type 2 diabetes mellitus Surgical History Surgical History History of esophagogastroduodenoscopy (EGD) Hx of section History of endometrial ablation History of tubal ligation History of foot surgery Hx of colonoscopy with polypectomy Hx of cholecystectomy History of appendectomy Social History Social History Household Members: Spouse and Family Housing: House Alcohol intake: current Alcohol intake frequency: a few times a month Patient Tobacco Use Status: Former Tobacco user Smoked in Last 30 Days: No Use of substances other than those prescribed or required for medical reasons: Yes Substance Use Type: Marijuana Currently Displaying Signs/Symptoms of Drug Intoxication Withdrawal: No Advance Directives: No Advance Directives Information Provided: No Nutrition Risks: No Nutritional Risk Patient : No service: No Current occupational status: unemployed Sexual orientation: Straight/Heterosexual Gender identity: Female Meds Allergies Allergy/AdvReac Type Severity Reaction Status Date / Time Seasonal Allergies Allergy Unknown Unknown Verified 01/21/24 08:59 No Known Drug Allergies Allergy Unknown Verified 10/27/23 10:38 Home Medications ?Medication ?Instructions ?Recorded ?Confirmed ?Last Taken ?Type clonazepam 0.5 mg tablet 0.5 mg PO BID PRN Anxiety 10/02/20 01/21/24 Unknown History zolpidem 10 mg tablet 10 mg PO BEDTIME Sleep 11/01/20 01/21/24 01/20/24 History metronidazole 0.75 % topical cream 1 appl topical BID PRN rosacea 10/05/22 01/21/24 Unknown History azelaic acid 15 % topical gel 1 appl topical DAILY PRN rosacea 10/27/23 01/21/24 Unknown History cetirizine 10 mg tablet 10 mg PO DAILY PRN Allergy Symptoms 10/27/23 01/21/24 Unknown History dextroamphetamine-amphetamine 20 1 tab PO BID@0900,1400 10/27/23 01/21/24 01/20/24 History mg tablet sennosides 8.6 mg tablet (senna) 17.2 mg PO BEDTIME for constipation 01/21/24 01/21/24 01/20/24 History tizanidine 4 mg tablet 4 mg PO BID@1200,2100 for muscle 01/21/24 01/21/24 01/20/24 History spasm Physical Exam Vital Signs: Vital Signs: Last Vital Signs Temp 98.5 F 01/21/24 16:04 Pulse 81 01/21/24 16:04 Resp 16 01/21/24 16:04 BP 147/82 H 01/21/24 16:04 Pulse Ox 98 01/21/24 16:04 O2 Del Method Room Air 01/21/24 16:04 BMI result Body Mass Index 38.1 Const: Other: obese General: comfortable and no acute distress Orientation/consciousness: patient oriented x3 Neck: Neck: Yes no lymphadenopathy Resp: Auscultation: clear to auscultation bilaterally Cardio: Rhythm: regular rhythm GI: Palpation (GI): Soft to palpation, not firm, Tenderness to palpation present (GI) (very mild tenderness diffusely) and no guarding Neuro: General: patient oriented x3 Results Results Labs: Short CBC 01/21/24 Range/Units 14:08 WBC 13.7 H (4.8-10.8) X10*3/uL Hgb 14.6 (12.0-16.0) g/dl Hct 42.7 (37.0-47.0) % Plt Count 309 (160-400) X10*3/uL BMP 01/21/24 14:07 Sodium 140 Potassium 3.5 Chloride 106 Carbon Dioxide 23 BUN 12 Creatinine 0.81 Calcium 9.8 Liver Function 01/21/24 Range/Units 14:07 Total Bilirubin 0.6 (0.0-1.0) mg/dL AST 21 (5-31) U/L ALT 24 (0-31) U/L Alkaline Phosphatase 91 (39-117) U/L Albumin 4.4 (3.5-5.0) g/dL Urine 01/21/24 Range/Units 14:06 Urine Color Dark Yellow Urine Appearance Clear Urine pH 6.0 (5.0-9.0) Ur Specific [place] >= 1.030 H (1.005-1.025) Urine Protein Trace (Neg-Trace) mg/dL Urine Glucose (UA) Negative (Negative) mg/dL Abdomen CT scan report/results: report reviewed CT scan - pelvis: report reviewed and image reviewed Additional studies: Laboratory Results WBC 13.7 X10*3/uL (4.8-10.8) H 01/21/24 14:08 RBC 4.54 X10*6/uL (4.20-5.50) 01/21/24 14:08 Hgb 14.6 g/dl (12.0-16.0) 01/21/24 14:08 Hct 42.7 % (37.0-47.0) 01/21/24 14:08 MCV 94.1 fL (80.0-98.0) 01/21/24 14:08 MCH 32.2 pg (27.0-33.0) 01/21/24 14:08 MCHC 34.2 g/dl (31.0-35.0) 01/21/24 14:08 RDW 12.2 % (11.0-16.0) 01/21/24 14:08 Plt Count 309 X10*3/uL (160-400) 01/21/24 14:08 MPV 9.0 fL (9.4-12.3) L 01/21/24 14:08 Immature Gran % (Auto) 0.4 % (0.0-0.4) 01/21/24 14:08 Neut % (Auto) 73.8 % (45-73) H 01/21/24 14:08 Lymph % (Auto) 21.4 % (20-40) 01/21/24 14:08 Long % (Auto) 3.8 % (2-11) 01/21/24 14:08 Eos % (Auto) 0.3 % (0-4) 01/21/24 14:08 Baso % (Auto) 0.3 % (0-2) 01/21/24 14:08 Lymph # (Auto) 2.9 X10*3/uL (1.2-4.9) 01/21/24 14:08 Long # (Auto) 0.5 X10*3/uL (0.1-1.2) 01/21/24 14:08 Eos # (Auto) 0.0 X10*3/uL (0.0-0.4) 01/21/24 14:08 Baso # (Auto) 0.0 X10*3/uL (0.0-0.2) 01/21/24 14:08 Abs Immat Gran (auto) 0.05 X10*3/uL (0.00-0.03) H 01/21/24 14:08 Absolute Neuts (auto) 10.1 x10*3/uL (2.0-8.3) H 01/21/24 14:08 Absolute Nucleated RBC 0.000 X10*3/uL (0.0-0.012) 01/21/24 14:08 Nucleated RBC % (auto) 0.0 /100WBC (0.0-0.2) 01/21/24 14:08 Sodium 140 mmol/L (135-145) 01/21/24 14:07 Potassium 3.5 mmol/L (3.3-5.1) 01/21/24 14:07 Chloride 106 mmol/L (96-108) 01/21/24 14:07 Carbon Dioxide 23 mmol/L (22-29) 01/21/24 14:07 Anion Gap 15 (12-20) 01/21/24 14:07 BUN 12 mg/dL (9-16) 01/21/24 14:07 Creatinine 0.81 mg/dL (0.5-1.4) 01/21/24 14:07 Estim Creat Clear Calc 86.0 01/21/24 14:07 Estimated GFR > 60 01/21/24 14:07 Random Glucose 103 mg/dL (60-115) 01/21/24 14:07 Lactic Acid 1.1 mmol/L (0.5-2.0) 01/21/24 14:44 Calcium 9.8 mg/dL (8.4-10.2) 01/21/24 14:07 Magnesium 2.2 mg/dL (1.6-2.6) 01/21/24 14:07 Total Bilirubin 0.6 mg/dL (0.0-1.0) 01/21/24 14:07 AST 21 U/L (5-31) 01/21/24 14:07 ALT 24 U/L (0-31) 01/21/24 14:07 Alkaline Phosphatase 91 U/L (39-117) 01/21/24 14:07 Total Protein 7.9 g/dL (6.5-8.0) 01/21/24 14:07 Albumin 4.4 g/dL (3.5-5.0) 01/21/24 14:07 Lipase 27 U/L (8-78) 01/21/24 14:07 Urine Color Dark Yellow 01/21/24 14:06 Urine Appearance Clear 01/21/24 14:06 Urine pH 6.0 (5.0-9.0) 01/21/24 14:06 Ur Specific [place] >= 1.030 (1.005-1.025) H 01/21/24 14:06 Urine Protein Trace mg/dL (Neg-Trace) 01/21/24 14:06 Urine Glucose (UA) Negative mg/dL (Negative) 01/21/24 14:06 Urine Ketones 40 mg/dL (Negative) 01/21/24 14:06 Urine Blood Negative (Negative) 01/21/24 14:06 Urine Nitrite Negative (Negative) 01/21/24 14:06 Ur Leukocyte Esterase Negative (Negative) 01/21/24 14:06 Influenza Type A (PCR) NEGATIVE (Negative) 01/21/24 14:07 Influenza Type B (PCR) NEGATIVE (Negative) 01/21/24 14:07 RSV RNA Qual (PCR) NEGATIVE (Negative) 01/21/24 14:07 SARS-CoV-2 RNA (RT-PCR) NEGATIVE (Negative) 01/21/24 14:07 Impressions Abdomen/Pelvis CT 01/21/24 15:54 IMPRESSION: Findings are most consistent with a small bowel obstruction transitioning in the mid to distal ileum with a small amount of interloop free fluid as well as mild mesenteric stranding which could indicate a higher degree of obstruction. Recommend surgical consultation. Scattered prominent mesenteric lymph nodes are most likely reactive in nature. Assessment and Plan (1) SBO (small bowel obstruction): Status: Acute Plan She describes abdominal discomfort and vomitting. I have reviewed her CT scan and this shows some dilated small bowel loops with mild mesenteric stranding and small amount of interloop free fluid. This is likely PSBO from her previous multiple surgeries with adhesions. She has air in the colon distally. Her exam is otherwise very benign. I will admit her for bowel rest and IV hydration. I explaied to her that there is a small chance she may need laparotomy if her clinical picture worsens. She does not seem to have other signficant medical problems. I discussed this with her as well. Quality Stroke Does the patient have a stroke diagnosis?: No VTE Prior VTE?: No VTE Risk Level:: Medical - moderate - high VTE Device Contraindication: N/A - Device Ordered VTE Drug Contraindication: N/A - Med Ordered Procedures Date of Service Date of Service: 01/23/24
[2024-01-21 17:31] VITALS: BP 126/69; PULSE 69; RESP 15; TEMP 37.1; O2SAT 97
--- NOTE | 2024-01-21 17:34 | PHA.MEDREC ---
Pharmacy Consult ? Medication Reconciliation Pharmacy has completed the medication reconciliation. Patient confirmed medications. Patient aware that she needs to bring in lubpiprostone, metronidazol cream and azelaic acid if she wants them while inpatient. Lisa Veliz, TamikaD
[2024-01-21] MEDS: Lactated Ringers 1,000 ML 100 ML IVCONT (19:31)
--- NOTE | 2024-01-21 19:33 | PC.NURSE ---
assumed care, pt reports no pain at this time. Ambulatory to bathroom
[2024-01-21 19:37] VITALS: BP 155/69; PULSE 73; RESP 16; TEMP 36.8; O2SAT 98
[2024-01-21 21:54] VITALS: BP 120/82; PULSE 88; RESP 16; TEMP 37; O2SAT 98
[2024-01-21] MEDS: Zolpidem Tartrate 5 MG TABLET PO (22:31)
[2024-01-21] MEDS: Calcium Carbonate 750 MG TAB.CHEW 1500 MG PO (22:31)
[2024-01-22] MEDS: ondansetron HCL 4 MG/2 ML VIAL IVPUSH (02:07)
[2024-01-22 04:00] VITALS: BP 122/73; PULSE 84; RESP 16; TEMP 36.7; O2SAT 95
[2024-01-22] MEDS: Lactated Ringers 1,000 ML 100 ML IVCONT (06:23)
[2024-01-22 06:33] LABS: Hematocrit 37.9 % (37.0-47.0); Hemoglobin 12.5 g/dl (12.0-16.0); Mean Corpuscular Volume 96.9 fL (80.0-98.0); Mean Platelet Volume 9.4 fL (9.4-12.3); Platelet Count 261 X10*3/uL (160-400); Red Blood Count 3.91 X10*6/uL (4.20-5.50); Red Cell Distribution Width 12.3 % (11.0-16.0); White Blood Count 11.3 X10*3/uL (4.8-10.8)
[2024-01-22 06:42] LABS: Anion Gap 14 (12-20); Blood Urea Nitrogen 13 mg/dL (9-16); Calcium 9.5 mg/dL (8.4-10.2); Carbon Dioxide 24 mmol/L (22-29); Chloride 110 mmol/L (96-108); Creatinine Clr Calc Pharmacy 91.7; Estimated Glomerular Filt Rate > 60; Glucose Random 93 mg/dL (60-115); Potassium 3.7 mmol/L (3.3-5.1); Sodium 144 mmol/L (135-145)
[2024-01-22 07:24] VITALS: BP 132/74; PULSE 69; RESP 14; TEMP 36.5; O2SAT 96
[2024-01-22] MEDS: 0.9 % Sodium Chloride Flush 3 ML SYRINGE IVFLUSH (07:53)
[2024-01-22] MEDS: Morphine Sulfate 2 MG/ML CARTRIDGE IVPUSH ×3 (07:53→21:58)
--- NOTE | 2024-01-22 08:40 | MHC.CM.PN ---
Patient is from home w/ . Functionally independent. Denies use of services or DME. PCP Ravinder Lombardo Completed HCP naming Sam as agent. DP: Goal is home self care. to transport. CM will continue to follow.
--- NOTE | 2024-01-22 09:09 | P.PNGS_ITS ---
Subjective Subjective Date of Service: 01/23/24 Interval history: says she still has some pain although better than yesterday describes small episode of emesis at 1 AM - she says this was because of her GERD denies recall of flatus or BM overnight Physical Exam 2 Vital Signs: Vital Signs: Last Vital Signs Temp 97.7 F 01/22/24 07:24 Pulse 69 01/22/24 07:24 Resp 14 01/22/24 07:24 BP 132/74 01/22/24 07:24 Pulse Ox 96 01/22/24 07:24 O2 Del Method Room Air 01/22/24 07:24 BMI result Body Mass Index 38.1 Const: Other: looks well General: comfortable and no acute distress Resp: Effort & Inspection: normal respiratory effort Cardio: Rate: regular rate GI: Other: mld tenderness left side Palpation (GI): Soft to palpation, not firm and no guarding Objective Data Active Medications Acetaminophen (Acetaminophen 325 Mg Tablet) 650 mg PO Q6H PRN PRN Reason: Headache Heparin Sodium (Porcine) (Heparin Sodium,Porcine 5,000 Unit/Ml Vial) 5,000 unit SUBCUT Q8H [facility] Lactated Ringer's (Lr) 1,000 mls @ 100 mls/hr IVCONT .Q10H [facility] Last Admin: 01/22/24 06:23 Dose: 100 mls/hr Documented By: HARIKA Morphine Sulfate (Morphine Sulfate 2 Mg/Ml Cartridge) 2 mg IVPUSH Q3H PRN; Protocol PRN Reason: pain, severe Last Admin: 01/22/24 07:53 Dose: 2 mg Documented By: GERDA Ondansetron HCl (Ondansetron Hcl 4 Mg/2 Ml Vial) 4 mg IVPUSH Q6H PRN PRN Reason: nausea Last Admin: 01/22/24 02:07 Dose: 4 mg Documented By: HARIKA Sodium Chloride (0.9 % Sodium Chloride Flush 3 Ml Syringe) 3 ml IVFLUSH QSHIFT [facility] Last Admin: 01/22/24 07:53 Dose: 3 ml Documented By: GERDA Tizanidine HCl (Tizanidine Hcl 4 Mg Tablet) 4 mg PO TID PRN PRN Reason: muscle spasm Zolpidem Tartrate (Zolpidem Tartrate 5 Mg Tablet) 5 mg PO BEDTIME [facility] Last Admin: 01/21/24 22:31 Dose: 5 mg Documented By: CONCHITA Labs 01/22/24 05:45 01/22/24 05:45 Labs: Laboratory Results - last 24 hr 01/21/24 01/21/24 01/21/24 14:06 14:07 14:08 MCV 94.1 MCH 32.2 MCHC 34.2 RDW 12.2 Plt Count 309 MPV 9.0 L Immature Gran % (Auto) 0.4 Neut % (Auto) 73.8 H Lymph % (Auto) 21.4 Mathews % (Auto) 3.8 Eos % (Auto) 0.3 Baso % (Auto) 0.3 Lymph # (Auto) 2.9 Mathews # (Auto) 0.5 Eos # (Auto) 0.0 Baso # (Auto) 0.0 Abs Immat Gran (auto) 0.05 H Absolute Neuts (auto) 10.1 H Absolute Nucleated RBC 0.000 Nucleated RBC % (auto) 0.0 Anion Gap 15 Estim Creat Clear Calc 86.0 Estimated GFR > 60 Random Glucose 103 Lactic Acid Calcium 9.8 Magnesium 2.2 Total Bilirubin 0.6 AST 21 ALT 24 Alkaline Phosphatase 91 Total Protein 7.9 Albumin 4.4 Lipase 27 Urine Color Dark Yellow Urine Appearance Clear Urine pH 6.0 Ur Specific [place] >= 1.030 H Urine Protein Trace Urine Glucose (UA) Negative Urine Ketones 40 Urine Blood Negative Urine Nitrite Negative Ur Leukocyte Esterase Negative Influenza Type A (PCR) NEGATIVE Influenza Type B (PCR) NEGATIVE RSV RNA Qual (PCR) NEGATIVE SARS-CoV-2 RNA (RT-PCR) NEGATIVE 01/21/24 01/22/24 14:44 05:45 MCV 96.9 MCH 32.0 MCHC 33.0 RDW 12.3 Plt Count 261 MPV 9.4 Immature Gran % (Auto) Neut % (Auto) Lymph % (Auto) Mathews % (Auto) Eos % (Auto) Baso % (Auto) Lymph # (Auto) Mathews # (Auto) Eos # (Auto) Baso # (Auto) Abs Immat Gran (auto) Absolute Neuts (auto) Absolute Nucleated RBC 0.000 Nucleated RBC % (auto) 0.0 Anion Gap 14 Estim Creat Clear Calc 91.7 Estimated GFR > 60 Random Glucose 93 Lactic Acid 1.1 Calcium 9.5 Magnesium Total Bilirubin AST ALT Alkaline Phosphatase Total Protein Albumin Lipase Urine Color Urine Appearance Urine pH Ur Specific [place] Urine Protein Urine Glucose (UA) Urine Ketones Urine Blood Urine Nitrite Ur Leukocyte Esterase Influenza Type A (PCR) Influenza Type B (PCR) RSV RNA Qual (PCR) SARS-CoV-2 RNA (RT-PCR) Procedures Date of Service Date of Service: 01/23/24 Progress Note: A&P Assessment and plan (1) SBO (small bowel obstruction): Status: Acute Assessment and Plan: abdomen remains very benign WBC better rest of labs ok mildly tender KUB reviewed - good amount of air in colon, although prominent small bowel loop in LUQ seen plan to keep NPO with sips today encouraged ambulation clinically looks well at bedside Time Spent With Patient Time: Total time managing care of this patient today ____ minutes. Quality Stroke Does the patient have a stroke diagnosis?: No VTE Prior VTE?: No VTE Risk Level:: Medical - moderate - high VTE Device Contraindication: N/A - Device Ordered VTE Drug Contraindication: N/A - Med Ordered
[2024-01-22] MEDS: Heparin Sodium,Porcine 5,000 UNIT/ML VIAL 5000 UNIT SUBCUT ×2 (10:55→18:13)
[2024-01-22] MEDS: Omeprazole 40 MG CAPSULE.DR PO (10:55)
[2024-01-22 14:56] VITALS: BP 139/89; PULSE 65; RESP 18; TEMP 36.8; O2SAT 95
--- NOTE | 2024-01-22 16:11 | PC.NURSE ---
bilateral ankle and pedal edema noted,bilateral hands swelling noted Dr. Hall notified,IV fluids decreased to 80ml/hr
[2024-01-22] MEDS: Simethicone 80 MG TAB.CHEW PO (16:30)
[2024-01-22] MEDS: Lactated Ringers 1,000 ML 80 ML IVCONT (16:32)
[2024-01-22 19:06] VITALS: BP 129/81; PULSE 69; RESP 18; TEMP 36.3; O2SAT 96
[2024-01-22] MEDS: Zolpidem Tartrate 5 MG TABLET PO (20:34)
[2024-01-23] MEDS: Acetaminophen 325 MG TABLET 650 MG PO (02:03)
[2024-01-23] MEDS: Heparin Sodium,Porcine 5,000 UNIT/ML VIAL 5000 UNIT SUBCUT ×3 (02:05→17:33)
[2024-01-23] MEDS: Simethicone 80 MG TAB.CHEW PO ×3 (02:11→21:04)
[2024-01-23 04:00] VITALS: BP 141/72; PULSE 54; RESP 16; TEMP 36.3; O2SAT 95
[2024-01-23] MEDS: Lactated Ringers 1,000 ML 80 ML IVCONT ×2 (05:13→16:58)
[2024-01-23] MEDS: Omeprazole 40 MG CAPSULE.DR PO (06:39)
[2024-01-23] MEDS: Morphine Sulfate 2 MG/ML CARTRIDGE IVPUSH ×3 (06:43→17:33)
[2024-01-23 07:27] VITALS: BP 111/56; PULSE 67; RESP 16; TEMP 36.8; O2SAT 92
--- NOTE | 2024-01-23 09:12 | PM.PNGS ---
Subjective Subjective Date of Service: 01/25/24 Interval history: says she has started to pass flatus no further nausea however, she says she still has pain hungry and wants to eat Physical Exam Vital Signs: Vital Signs: Last Vital Signs Temp 98.3 F 01/23/24 07:27 Pulse 67 01/23/24 07:27 Resp 16 01/23/24 07:27 BP 111/56 L 01/23/24 07:27 Pulse Ox 92 01/23/24 07:27 O2 Del Method Room Air 01/23/24 07:27 BMI result Body Mass Index 38.1 Const: General: comfortable and no acute distress Resp: Effort & Inspection: normal respiratory effort Cardio: Rate: regular rate GI: Other: bluing oven tender mostly on left upper quadrant Palpation (GI): Soft to palpation, not firm and no guarding Objective Data Active Medications Acetaminophen (Acetaminophen 325 Mg Tablet) 650 mg PO Q6H PRN PRN Reason: Headache Last Admin: 01/23/24 02:03 Dose: 650 mg Documented By: HARIKA Heparin Sodium (Porcine) (Heparin Sodium,Porcine 5,000 Unit/Ml Vial) 5,000 unit SUBCUT Q8H [facility] Last Admin: 01/23/24 02:05 Dose: 5,000 unit Documented By: HARIKA Lactated Ringer's (Lr) 1,000 mls @ 80 mls/hr IVCONT .[id number] [facility] Last Admin: 01/23/24 05:13 Dose: 80 mls/hr Documented By: HARIKA Loratadine (Loratadine 10 Mg Tablet) 10 mg PO DAILY PRN PRN Reason: Allergy Symptoms Morphine Sulfate (Morphine Sulfate 2 Mg/Ml Cartridge) 2 mg IVPUSH Q3H PRN; Protocol PRN Reason: pain, severe Last Admin: 01/23/24 06:43 Dose: 2 mg Documented By: HARIKA Omeprazole (Omeprazole 40 Mg Capsule.) 40 mg PO DAILY@0630 [facility] Last Admin: 01/23/24 06:39 Dose: 40 mg Documented By: HARIKA Ondansetron HCl (Ondansetron Hcl 4 Mg/2 Ml Vial) 4 mg IVPUSH Q6H PRN PRN Reason: nausea Last Admin: 01/22/24 02:07 Dose: 4 mg Documented By: HARIKA Simethicone (Simethicone 80 Mg Tab.Chew) 80 mg PO TID PRN PRN Reason: abdominal distention Last Admin: 01/23/24 02:11 Dose: 80 mg Documented By: HARIKA Sodium Chloride (0.9 % Sodium Chloride Flush 3 Ml Syringe) 3 ml IVFLUSH QSHIFT [facility] Last Admin: 01/23/24 00:49 Dose: Not Given Documented By: HARIKA Non-Admin Reason: IV Running Tizanidine HCl (Tizanidine Hcl 4 Mg Tablet) 4 mg PO TID PRN PRN Reason: muscle spasm Zolpidem Tartrate (Zolpidem Tartrate 5 Mg Tablet) 5 mg PO BEDTIME [facility] Last Admin: 01/22/24 20:34 Dose: 5 mg Documented By: BEIT Labs 01/22/24 05:45 01/24/24 06:17 Microbiology Microbiology Results: Microbiology 01/21/24 16:14 Blood Culture - Preliminary Blood - Venous No growth after 24 hours. 01/21/24 16:22 Blood Culture - Preliminary Blood - Venous No growth after 24 hours. Procedures Date of Service Date of Service: 01/25/24 Progress Note: A&P Assessment and plan (1) SBO (small bowel obstruction): Status: Acute Assessment and Plan: no further nausea passing flatus still tenderand says she still has pain clear liquids today if still with signifcant symptoms tomorrow, plan gastrograffin SB series she understands plan encouraged ambulation exam benign Time Spent With Patient Time: Total time managing care of this patient today ____ minutes. Quality Stroke Does the patient have a stroke diagnosis?: No VTE Prior VTE?: No VTE Risk Level:: Medical - moderate - high VTE Device Contraindication: N/A - Device Ordered VTE Drug Contraindication: N/A - Med Ordered
[2024-01-23 15:18] VITALS: BP 159/87; PULSE 70; RESP 18; TEMP 36.7; O2SAT 94
[2024-01-23 19:19] VITALS: BP 126/60; PULSE 76; RESP 16; TEMP 36.8; O2SAT 95
[2024-01-23] MEDS: Zolpidem Tartrate 5 MG TABLET PO (20:55)
[2024-01-24] MEDS: Heparin Sodium,Porcine 5,000 UNIT/ML VIAL 5000 UNIT SUBCUT ×3 (02:58→17:30)
[2024-01-24 03:01] VITALS: BP 124/89; PULSE 75; RESP 16; TEMP 36.1; O2SAT 95
[2024-01-24] MEDS: Lactated Ringers 1,000 ML 80 ML IVCONT ×2 (05:13→20:06)
[2024-01-24] MEDS: Omeprazole 40 MG CAPSULE.DR PO (05:58)
[2024-01-24 06:43] LABS: Anion Gap 16 (12-20); Blood Urea Nitrogen 4 mg/dL (9-16); Carbon Dioxide 25 mmol/L (22-29); Chloride 107 mmol/L (96-108); Creatinine Clr Calc Pharmacy 91.7; Estimated Glomerular Filt Rate > 60; Glucose Random 107 mg/dL (60-115); Potassium 3.5 mmol/L (3.3-5.1); Sodium 144 mmol/L (135-145)
[2024-01-24 07:21] VITALS: BP 124/81; PULSE 73; RESP 18; TEMP 36.1; O2SAT 95
--- NOTE | 2024-01-24 07:37 | PM.PNGS ---
Subjective Subjective Date of Service: 01/24/24 <Evy Claire PA-C - Last Filed: 01/24/24 07:39> 01/24/24 <Ravinder Hall MD - Last Filed: 01/24/24 08:16> Interval history: Tolerated clear liquids yesterday but still c/o pain this morning. Passing small amount of flatus. <Evy Claire PA-C - Last Filed: 01/24/24 07:39> Physical Exam Vital Signs: Vital Signs: Last Vital Signs Temp 97.0 F 01/24/24 07:21 Pulse 73 01/24/24 07:21 Resp 18 01/24/24 07:21 BP 124/81 01/24/24 07:21 Pulse Ox 95 01/24/24 07:21 O2 Del Method Room Air 01/24/24 07:21 BMI result Body Mass Index 38.1 <ALINA Stiles Last Filed: 01/24/24 07:39> Const: General: comfortable, no acute distress and alert <Evy Claire PA-C - Last Filed: 01/24/24 07:39> Orientation/consciousness: patient oriented x3 <Evy Claire PA-C - Last Filed: 01/24/24 07:39> Resp: Effort & Inspection: normal respiratory effort <Evy Claire PA-C - Last Filed: 01/24/24 07:39> GI: Inspection: No distended <Evy Claire PA-C - Last Filed: 01/24/24 07:39> Palpation (GI): Soft to palpation, Tenderness to palpation present (GI) and no guarding <Evy Claire PA-C - Last Filed: 01/24/24 07:39> Skin: General skin exam: no rashes or lesions noted <ALINA Stiles Last Filed: 01/24/24 07:39> Neuro: General: patient oriented x3 <ALINA Stiles Last Filed: 01/24/24 07:39> Objective Data Active Medications Acetaminophen (Acetaminophen 325 Mg Tablet) 650 mg PO Q6H PRN PRN Reason: Headache Last Admin: 01/23/24 02:03 Dose: 650 mg Documented By: HARIKA Heparin Sodium (Porcine) (Heparin Sodium,Porcine 5,000 Unit/Ml Vial) 5,000 unit SUBCUT Q8H [facility] Last Admin: 01/24/24 02:58 Dose: 5,000 unit Documented By: HARIKA Lactated Ringer's (Lr) 1,000 mls @ 80 mls/hr IVCONT .[id number] [facility] Last Admin: 01/24/24 05:13 Dose: 80 mls/hr Documented By: HARIKA Loratadine (Loratadine 10 Mg Tablet) 10 mg PO DAILY PRN PRN Reason: Allergy Symptoms Morphine Sulfate (Morphine Sulfate 2 Mg/Ml Cartridge) 2 mg IVPUSH Q3H PRN; Protocol PRN Reason: pain, severe Last Admin: 01/23/24 17:33 Dose: 2 mg Documented By: NEGRO Omeprazole (Omeprazole 40 Mg Capsule.Dr) 40 mg PO DAILY@0630 [facility] Last Admin: 01/24/24 05:58 Dose: 40 mg Documented By: HARIKA Ondansetron HCl (Ondansetron Hcl 4 Mg/2 Ml Vial) 4 mg IVPUSH Q6H PRN PRN Reason: nausea Last Admin: 01/22/24 02:07 Dose: 4 mg Documented By: HARIKA Simethicone (Simethicone 80 Mg Tab.Chew) 80 mg PO TID PRN PRN Reason: abdominal distention Last Admin: 01/23/24 21:04 Dose: 80 mg Documented By: NEGRO Sodium Chloride (0.9 % Sodium Chloride Flush 3 Ml Syringe) 3 ml IVFLUSH QSHIFT [facility] Last Admin: 01/24/24 07:09 Dose: Not Given Documented By: SINCEREB Non-Admin Reason: IV Running Tizanidine HCl (Tizanidine Hcl 4 Mg Tablet) 4 mg PO TID PRN PRN Reason: muscle spasm Zolpidem Tartrate (Zolpidem Tartrate 5 Mg Tablet) 5 mg PO BEDTIME [facility] Last Admin: 01/23/24 20:55 Dose: 5 mg Documented By: NEGRO <Evy Claire PA-C - Last Filed: 01/24/24 07:39> Labs CBC & Chem 7: 01/22/24 05:45 01/24/24 06:17 <Evy Claire PA-C - Last Filed: 01/24/24 07:39> Labs: Laboratory Results - last 24 hr 01/24/24 06:17 Anion Gap 16 Estim Creat Clear Calc 91.7 Estimated GFR > 60 Random Glucose 107 Calcium 9.0 <Evy Claire PA-C - Last Filed: 01/24/24 07:39> Microbiology Microbiology Results: Microbiology 01/21/24 16:14 Blood Culture - Preliminary Blood - Venous No growth after 48 hours. 01/21/24 16:22 Blood Culture - Preliminary Blood - Venous No growth after 48 hours. <Evy Claire PA-C - Last Filed: 01/24/24 07:39> Procedures Date of Service Date of Service: 01/24/24 <Evy Claire PA-C - Last Filed: 01/24/24 07:39> 01/24/24 <Ravinder Hall MD - Last Filed: 01/24/24 08:16> Progress Note: A&P Assessment and plan (1) SBO (small bowel obstruction): Status: Acute <Evy Claire PA-C - Last Filed: 01/24/24 07:39> Assessment and Plan: tolerating clear liquids passing flatus no nausea however, says she is still having pain with tenderness SB series with gastrograffin ordered seen and examined independently exam benign otherwise pt appears comfortable <Ravinder Hall MD - Last Filed: 01/24/24 08:16> Assessment and Plan: With some evidence of return of GI funtion but still c/o moderate amount of pain. Abd is benign but tender diffusely. Will obtain SBFT this am. Patient comfortable with plan. <Evy Claire PA-C - Last Filed: 01/24/24 07:39> Time Spent With Patient Time: Total time managing care of this patient today ____ minutes. <Evy Claire PA-C - Last Filed: 01/24/24 07:39> Quality Stroke Does the patient have a stroke diagnosis?: No <ALINA Stiles Last Filed: 01/24/24 07:39> VTE Prior VTE?: No <Evy Claire PA-C - Last Filed: 01/24/24 07:39> VTE Risk Level:: Medical - moderate - high <ALINA Stiles Last Filed: 01/24/24 07:39> VTE Device Contraindication: N/A - Device Ordered <Evy Claire PA-C - Last Filed: 01/24/24 07:39> VTE Drug Contraindication: N/A - Med Ordered <ALINA Stiles Last Filed: 01/24/24 07:39>
[2024-01-24 15:10] VITALS: BP 135/94; PULSE 71; RESP 18; TEMP 36.4; O2SAT 95
--- NOTE | 2024-01-24 16:40 | PM.EVENT ---
Event Note Date of Service: 01/24/24 Event Note: She is tolerating clear liquids Abdomen remained soft although with some tenderness Small-bowel follow-through shows contrast to be progressing well No official report yet Keep on clear liquids for today Re-evaluate in the morning Exam remains benign She understands the plan Time Spent With Patient Time: Total time managing care of this patient today ____ minutes.
[2024-01-24 19:46] VITALS: BP 152/74; PULSE 74; RESP 17; TEMP 36.8; O2SAT 95
[2024-01-24] MEDS: Zolpidem Tartrate 5 MG TABLET PO (21:32)
[2024-01-24] MEDS: Morphine Sulfate 2 MG/ML CARTRIDGE IVPUSH (21:32)
[2024-01-25 03:32] VITALS: BP 120/64; PULSE 82; RESP 18; TEMP 36.7; O2SAT 95
[2024-01-25] MEDS: Heparin Sodium,Porcine 5,000 UNIT/ML VIAL 5000 UNIT SUBCUT ×2 (03:40→08:31)
[2024-01-25] MEDS: Omeprazole 40 MG CAPSULE.DR PO (06:00)
[2024-01-25 07:38] VITALS: BP 142/88; PULSE 100; RESP 18; TEMP 36.2; O2SAT 96
[2024-01-25] MEDS: Lactated Ringers 1,000 ML 80 ML IVCONT (08:31)
--- NOTE | 2024-01-25 09:04 | P.PNGS_ITS ---
Subjective Subjective Date of Service: 01/25/24 Interval history: feels well today says she has no pain anymore hungry and wants to eat passing flatus Physical Exam 2 Vital Signs: Vital Signs: Last Vital Signs Temp 97.1 F 01/25/24 07:38 Pulse 100 01/25/24 07:38 Resp 18 01/25/24 07:38 BP 142/88 H 01/25/24 07:38 Pulse Ox 96 01/25/24 07:38 O2 Del Method Room Air 01/25/24 07:38 BMI result Body Mass Index 38.1 Const: General: comfortable and no acute distress Resp: Effort & Inspection: normal respiratory effort Cardio: Palpation: normal PMI GI: Palpation (GI): Soft to palpation, not firm, nontender and no guarding Objective Data Active Medications Acetaminophen (Acetaminophen 325 Mg Tablet) 650 mg PO Q6H PRN PRN Reason: Headache Last Admin: 01/23/24 02:03 Dose: 650 mg Documented By: HARIKA Heparin Sodium (Porcine) (Heparin Sodium,Porcine 5,000 Unit/Ml Vial) 5,000 unit SUBCUT Q8H [facility] Last Admin: 01/25/24 08:31 Dose: 5,000 unit Documented By: JEANNIE Lactated Ringer's (Lr) 1,000 mls @ 80 mls/hr IVCONT .[id number] [facility] Last Admin: 01/25/24 08:31 Dose: 80 mls/hr Documented By: JEANNIE Loratadine (Loratadine 10 Mg Tablet) 10 mg PO DAILY PRN PRN Reason: Allergy Symptoms Morphine Sulfate (Morphine Sulfate 2 Mg/Ml Cartridge) 2 mg IVPUSH Q3H PRN; Protocol PRN Reason: pain, severe Last Admin: 01/24/24 21:32 Dose: 2 mg Documented By: XIMENA Omeprazole (Omeprazole 40 Mg Capsule.Dr) 40 mg PO DAILY@0630 [facility] Last Admin: 01/25/24 06:00 Dose: 40 mg Documented By: XIMENA Ondansetron HCl (Ondansetron Hcl 4 Mg/2 Ml Vial) 4 mg IVPUSH Q6H PRN PRN Reason: nausea Last Admin: 01/22/24 02:07 Dose: 4 mg Documented By: HARIKA Simethicone (Simethicone 80 Mg Tab.Chew) 80 mg PO TID PRN PRN Reason: abdominal distention Last Admin: 01/23/24 21:04 Dose: 80 mg Documented By: NERGO Sodium Chloride (0.9 % Sodium Chloride Flush 3 Ml Syringe) 3 ml IVFLUSH QSHIFT [facility] Last Admin: 01/25/24 06:58 Dose: Not Given Documented By: FOGARTB Non-Admin Reason: IV Running Tizanidine HCl (Tizanidine Hcl 4 Mg Tablet) 4 mg PO TID PRN PRN Reason: muscle spasm Zolpidem Tartrate (Zolpidem Tartrate 5 Mg Tablet) 5 mg PO BEDTIME [facility] Last Admin: 01/24/24 21:32 Dose: 5 mg Documented By: XIMENA Labs 01/22/24 05:45 01/24/24 06:17 Procedures Date of Service Date of Service: 01/25/24 Progress Note: A&P Assessment and plan (1) SBO (small bowel obstruction): Status: Acute Assessment and Plan: much improved no tenderness or pain abd soft looks well passing flatus diet as tolerated home today if tolerating diet Time Spent With Patient Time: Total time managing care of this patient today ____ minutes. Quality Stroke Does the patient have a stroke diagnosis?: No VTE Prior VTE?: No VTE Risk Level:: Medical - moderate - high VTE Device Contraindication: N/A - Device Ordered VTE Drug Contraindication: N/A - Med Ordered
--- NOTE | 2024-01-25 12:27 | P.DS_ITS ---
DS: Providers Provider Date of Service: 01/25/24 Date of admission: 01/21/24 17:24 Date of discharge: 01/25/24 Primary care physician: Ravinder Lombardo MD Attending physician on admission: Ravinder Hall Attending physician on discharge: Ravinder Hall DS: Diagnosis Discharge Diagnosis (1) SBO (small bowel obstruction): Status: Acute DS: Summary Hospital Course Hospital Course: HPI AT ADMISSION: Amy Corona is a 53 year old female here in the ED for abdominal pain. She says that her symptoms started last night. She describes more of diffuse abdominal discomfort. She describes multiple episdoes of vomitting this morning. The last episode of vomitting was at 11 a.m. She had a bowel movement this morning. She denies flatus today. She has a hx of Csection, appnedectomy and cholecystectomy (laparoscopic) in the . She says her pain level currently is mild. CT scan shows some dilated small bowel loops with mild mesenteric stranding and small amount of interloop free fluid. HOSPITAL COURSE: She was admitted to the surgical service for further treatment of the SBO, likely partial. She had a benign abdomen. Supportive measures were continued with bowel rest and IV hydration. She improved symptomatically and began to pass flatus however she continued to have pain and tenderness. Therefore SBFT was performed which showed progression of contrast into the colon. She reported improvement in her pain following this. She was tolerating clear liquids and her diet was advanced to solids. She was reassessed later in the day and was tolerating solids with a benign abdominal exam. She felt ready for discharge to home. She was discharged to home on 01/25/24 in stable condition. Status at Discharge Functional status at discharge: independent ambulation Overall status at discharge: patient is progressing back to baseline Time Attestation Discharge Coordination Time (in mins): 35 Quality: Safe Use of Opioids Does Pt have an Active Cancer Diagnosis on the Problem List?: No Quality: Stroke Does the patient have a stroke diagnosis?: No Physical Exam Vital Signs: Vital Signs: Last Vital Signs Temp 97.1 F 01/25/24 07:38 Pulse 100 01/25/24 07:38 Resp 18 01/25/24 07:38 BP 142/88 H 01/25/24 07:38 Pulse Ox 96 01/25/24 07:38 O2 Del Method Room Air 01/25/24 07:38 BMI result Body Mass Index 38.1 Const: Orientation/consciousness: patient oriented x3 Resp: Effort & Inspection: normal respiratory effort GI: Inspection: No distended Palpation (GI): Soft to palpation and nontender Neuro: General: patient oriented x3 Discharge Plan Discharge Anticipated Discharge Date/Time: 01/25/24 15:45 Patient Disposition: Home, Self-Care Discharge Diagnosis: SBO Referrals: Ravinder Lombardo MD [Primary Care Provider] - 1 Week Discharge Medications: Continued cholecalciferol (vitamin D3) 125 mcg (5,000 unit) capsule 125 mcg PO DAILY Qty: 90 1RF mecobalamin (vitamin B12) 1,000 mcg tablet,disintegrating 1,000 mcg sublingual DAILY Qty: 30 1RF Rx Instructions: place tablet under tongue and allow to dissolve for at least30 secs before swallowing omeprazole 40 mg capsule,delayed release(DR/EC) 40 mg PO BID Qty: 180 2RF sennosides [senna] 8.6 mg tablet 17.2 mg PO BEDTIME tizanidine 4 mg tablet 4 mg PO BID@1200,2100 zolpidem 10 mg tablet 10 mg PO BEDTIME clonazepam 0.5 mg tablet 0.5 mg PO BID PRN (Reason: Anxiety) metronidazole 0.75 % cream 1 appl topical BID PRN (Reason: rosacea) dextroamphetamine-amphetamine 20 mg tablet 1 tab PO BID@0900,1400 cetirizine 10 mg tablet 10 mg PO DAILY PRN (Reason: Allergy Symptoms) azelaic acid 15 % gel 1 appl topical DAILY PRN (Reason: rosacea) lubiprostone [Amitiza] 24 mcg capsule 24 mcg PO BID 30 Days Qty: 60 6RF simethicone [Gas Relief (simethicone)] 125 mg tablet,chewable 125 mg PO TID MDD 3 PRN (Reason: abdominal distention) 30 Days Qty: 90 3RF Discharge Orders: Discharge Order (Routine); Ordered 01/25/24 Ordered By: Ravinder Hall Diet: Advance to usual diet Activity on Discharge: As tolerated Stand Alone Forms: Patient Portal Discharge page Print Language: Persian Activity Restrictions/Additional Instructions: Follow up with your primary care provider. Call Your Doctor If: ? ? -Your temperature exceeds 101.5? F? ? ? -You experience excessive pain or swelling ? ? -You experience continued vomiting/nausea Care Plan Goals: return to baseline health and activities Health Concerns: SBO may have recurrence Plan of Treatment: supportive with IV hydration, pain control Assessment: Resolved Discharge Date/Time: 01/25/24 15:19
--- NOTE | 2024-01-25 14:58 | PM.EVENT ---
Event Note Date of Service: 01/25/24 Event Note: Patient says she is ready to be discharged Denies any abdominal pain Tolerating diet well Flatus Abdomen soft and nontender She looks well She understands the risk of recurrence with her SBO She was instructed to follow up with her PCP Time Spent With Patient Time: Total time managing care of this patient today ____ minutes.
--- NOTE | 2024-01-25 15:19 | MHC.CM.PN ---
pt dcd home self care
== END 2024-01-25 15:19 | disposition home or self-care (01) | DRG 247 ==
LOC: HO.ED 17:05 → HO.EDOVER 17:30 → HO.S3 19:45
PROVIDERS: Registered Nurse Emergency; Admitting Provider Surgery; Emergency Provider Student in an Organized Health Care Education/Training Program; PCP Internal Medicine; Visit Provider Surgery
DX: K56.600 Partial intestinal obstruction, unspecified as to cause (principal); Z20.822 Contact with and (suspected) exposure to COVID-19; Z87.891 Personal history of nicotine dependence; Z79.899 Other long term (current) drug therapy
CPT/HCPCS: 0241U; 36415; 74018; 74177; 74250; 80048; 80053; 81003; 83605; 83690; 83735; 85025; 85027; 87040; 99285; J1644; J1885; J2270; J2405; J7120; Q9967

== ENCOUNTER 2024-01-21 17:24 | Outpatient (BNV) | payer OTHER, SELFPAY | END 2024-01-24 13:31 | PROVIDERS: Admitting Provider Surgery; Emergency Provider Student in an Organized Health Care Education/Training Program; PCP Internal Medicine; Visit Provider Physician Assistant Surgical | DX: K56.609 Unspecified intestinal obstruction, unspecified as to partial versus complete obstruction (principal) | CPT/HCPCS: 74250 ==

== ENCOUNTER → 2024-01-21 17:24 | Outpatient (BNV) | payer OTHER, SELFPAY | PROVIDERS: Admitting Provider Surgery; Emergency Provider Student in an Organized Health Care Education/Training Program; PCP Internal Medicine; Visit Provider Surgery | DX: K56.609 Unspecified intestinal obstruction, unspecified as to partial versus complete obstruction (principal) | CPT/HCPCS: 99222; 99232; 99239; 99499 ==

== ENCOUNTER 2024-02-02 14:53 | Outpatient (AMB) | payer OTHER, SELFPAY ==
--- NOTE | 2024-02-02 14:58 | MHC.OFFVIS ---
Vital Signs 02/02/24 15:03 Height 5 ft 2 in Weight 203 lb 11.314 oz BMI 37.3 BP 154/84 H Blood Pressure Location Lt brachial Position Sitting Pulse 83 Intake Visit Reasons: follow r/s from 12/27/2023 Intake Note: Patient presents to in office visit today in follow up of IBS and constipation. CC: Patient went to the ED on 01/20 with c/o abdominal pain, she was admitted for small bowel obstruction. She states she was discharged from the hospital on 01/24. She states that she feels full and like she is not emptying her bowels completely. She states that her PCP told her that she has lesions in her intestines . Monomer Recovery Supervisor Required: No Accompanied by: Self / Same As Patient Allergies Seasonal Allergies Allergy (Unknown, Verified 02/18/24 13:37) Unknown No Known Drug Allergies Allergy (Verified 02/18/24 13:37) Unknown HPI HPI follow r/s from 12/27/2023: Details: Assessment & Plan (1) Irritable bowel syndrome with constipation: Code(s): K58.1 - Irritable bowel syndrome with constipation (2) Tubular adenoma of colon: Comment: 2021=TA scope repeat in 5 years, NEEDS SUPREP OR LOW VOLUME PREP Code(s): D12.6 - Benign neoplasm of colon, unspecified (3) GERD (gastroesophageal reflux disease): Code(s): K21.9 - Gastro-esophageal reflux disease without esophagitis (4) Erosive esophagitis: Code(s): K22.10 - Ulcer of esophagus without bleeding (5) 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 I will restart this. She is also on simethicone and omeprazole and senna. She says to me honestly ?I have not been getting my medicines because I have not been coming back to see you. ? Apparently this has more to do with all her other medical appointments than a problem with our service. She still has occasional bloating and gas, her pancreatic elastase was low in the past so we should consider Creon. She is only taking the omeprazole qd and asks for the rx to be lowered. She has had a lot of other medical problems, she just had VV surgery. She was d/c'ed by [facility] because she can not drink the shakes and is not losing weight under their program. ROV 8 weeks to consider creon after getting bowels moving. Orders: Orders Rast Allergen Today R19.7 - Diarrhea, unspecified Medications: New lubiprostone (Amitiza) 24 mcg PO BID 30 days 60 caps 6RF Refilled sennosides (senna) 17.2 mg (2 x 8.6 mg) PO BEDTIME 90 days PRN 180 tabs 0RF for constipation simethicone (Gas Relief (simethicone)) 125 mg PO TID 30 days PRN 90 tabs 3RF abdominal distention MDD 3 K21.9 - Gastro-esophageal reflux disease without esophagitis, K58.1 - Irritable bowel syndrome with constipation Labs: The rast panel showed no significant food allergies. TODAY'S VISIT She was admitted 01/20 with a SBO. She was taking her amitiza and senna and was moving her bowels....so she is unsure why this happened. She has had extensive abd surgeries and there is evidence of adhesions (the most likely reason). She saw Dr. Hall as an inpatient and he is reluctant to approach this surgically. Will change from Amitiza to LInzess and start at 290mcg...if not may need reglan. ROV 2 weeks. [facility] Medical History (Updated 02/18/24 @ 14:02 by ERICA Vasquez) Diarrhea Arthralgia of hip, left Campylobacter diarrhea Epigastric pain Well woman exam Spasm of muscle of lower back Well woman exam Acute left-sided back pain with sciatica ASCUS of cervix with negative high risk HPV Elevated cholesterol History of depression ADD (attention deficit disorder) PTSD (post-traumatic stress disorder) History of methicillin resistant staphylococcus aureus (MRSA) Helicobacter pylori (H. pylori) infection Chronic low back pain Hx of cardiac murmur Asthma Tubular adenoma of colon Irritable bowel syndrome with constipation GERD (gastroesophageal reflux disease) Surgical History History of esophagogastroduodenoscopy (EGD) Hx of section History of endometrial ablation History of tubal ligation History of foot surgery Hx of colonoscopy with polypectomy Hx of cholecystectomy History of appendectomy Family History Father Family history of Alzheimer's disease History of dementia Mother Hx of type 2 diabetes mellitus Social History Household Members: Spouse and Family Housing: House Alcohol intake: current Alcohol intake frequency: a few times a month Patient Tobacco Use Status: Former Tobacco user Substance Use Type: Marijuana service: No Current occupational status: unemployed Sexual orientation: Straight/Heterosexual Gender identity: Female Female Reproductive History Menstrual Age of Menarche: 12 Review of Systems Const Denies fatigue, Denies fever(s), Denies night sweats, Denies poor appetite and Denies weight loss ENT Reports Normal hearing present, Denies dental pain, Denies dysphagia, Denies hearing loss, Denies mouth pain, Denies odynophagia, Denies throat swelling, Denies tongue swelling and Reports other (Dentition adequate) Card Reports no additional complaints Resp Reports no additional complaints GI Details: Denies abdominal pain, Denies melena, Denies bloating, Denies hematochezia, Reports constipation, Denies GI cramping, Denies dysphagia, Denies excessive flatus, Denies early satiety, Denies heartburn, Denies diarrhea, Denies nausea, Denies odynophagia, Denies vomiting and Denies hematemesis Skin/Breast Denies pruritus, Denies lesions, Denies rash and Denies jaundice Neuro Reports Normal hearing present and Denies Abnormal speech present Endo Denies fatigue Aller/Immun Denies throat swelling and Denies tongue swelling Physical Exam Vital Signs: Last Vital Signs Pulse 83 02/02/24 15:03 BP 154/84 H 02/02/24 15:03 BMI result Body Mass Index 37.3 Const General: cooperative, no acute distress, well developed and well groomed Nutritional Appearance: well nourished and obese Orientation/consciousness: oriented to person, oriented to place and oriented to time Limitations: No language barrier HEENT Head: Yes normocephalic and Yes atraumatic Eyes General: appearance normal, both eyes and all related structures Pupils: Equal, round and reactive pupils present Neck Neck: Yes normal visual inspection and Yes no lymphadenopathy Thyroid: Thyroid normal Resp Effort & Inspection: normal respiratory effort and able to speak in complete sentences Auscultation: clear to auscultation bilaterally Cardio Rate: regular rate Rhythm: regular rhythm Heart sounds: Normal, physiologic split S2 sound present Peripheral pulses: radial pulses present and posterior tibial pulses present GI Inspection: No distended, No Abdominal panniculus present and Yes obesity Palpation (GI): Soft to palpation, nontender, no guarding, not rigid and No hepatosplenomegaly present Percussion: Yes normal to percussion Auscultation: normal bowel sounds Rectal Exam - Female: deferred Skin General skin exam: no rashes or lesions noted, turgor normal, skin not dry, no jaundice, No spider nevi and no striae Rashes: no rashes Nails: normal Neuro General: oriented to person, oriented to place and oriented to time Cranial nerves: Yes Equal, round and reactive pupils present and Yes Normal hearing present Speech: No Abnormal speech present Extrem General: Yes normal to inspection, No clubbing, No cyanosis and No edema Psych Appearance: grossly normal and well kempt Mental Status: mental status grossly normal Speech and movement: Normal speech and movement present Affect: normal affect Attitude: cooperative Thought process: Normal thought process present and not confabulating Thought content: Normal thought content present Insight: Limited insight present (Psych) Judgement: Limited judgement present (Psych) Assessment & Plan Assessment & Plan (1) Irritable bowel syndrome with constipation: Code(s): K58.1 - Irritable bowel syndrome with constipation Category: Medical Plan She was admitted 01/20 with a SBO. She was taking her amitiza and senna and was moving her bowels....so she is unsure why this happened. She has had extensive abd surgeries and there is evidence of adhesions (the most likely reason). She saw Dr. Hall as an inpatient and he is reluctant to approach this surgically. Will change from Amitiza to LInzess and start at 290mcg...if not may need reglan. ROV 2 weeks. Medications: New linaclotide (Linzess) 290 mcg PO QAM 30 caps 6RF 30 days K58.1 - Irritable bowel syndrome with constipation On Hold lubiprostone (Amitiza) Hold Comment: Doctor's Order 24 mcg PO BID 30 days 60 caps 6RF Coding Level of Care Code Est Pt Level 3 (11874) Diagnoses Irritable bowel syndrome with constipation K58.1
[2024-02-02 15:03] VITALS: BP 154/84; PULSE 83; BMI 37.3
== END 2024-02-02 15:48 | disposition home or self-care (01) ==
PROVIDERS: PCP Internal Medicine; Visit Provider Nurse Practitioner
DX: K58.1 Irritable bowel syndrome with constipation (principal)
CPT/HCPCS: 99213

== ENCOUNTER → 2024-02-02 14:53 | Outpatient (BNVA) | payer OTHER, SELFPAY | PROVIDERS: PCP Internal Medicine; Visit Provider Nurse Practitioner | DX: K58.1 Irritable bowel syndrome with constipation (principal) | CPT/HCPCS: 99212 ==

== ENCOUNTER 2024-02-18 13:26 | Outpatient (AMB) | payer OTHER, SELFPAY ==
[2024-02-18 13:27] VITALS: BP 90/63; PULSE 76; BMI 38.9
--- NOTE | 2024-02-18 13:27 | MHC.OFFVIS ---
Vital Signs 02/18/24 13:27 Height 5 ft 2 in Weight 212 lb 15.465 oz BMI 38.9 BP 90/63 Blood Pressure Location Lt brachial Position Sitting Pulse 76 Intake Visit Reasons: 2 week follow up Intake Note: Amy returns in follow up of IBS with constipation. CC: Patient states that she has been taking the Lubiprostone QD and the Linzess at night and senna. She states that she feels that medication works some times and other times dont. She states she still feels full and is not eating a lot d/t fullness. 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: No Accompanied by: Self / Same As Patient Allergies Seasonal Allergies Allergy (Unknown, Verified 02/18/24 13:37) Unknown No Known Drug Allergies Allergy (Verified 02/18/24 13:37) Unknown HPI HPI 2 week follow up: Details: Assessment & Plan (1) Irritable bowel syndrome with constipation: Code(s): K58.1 - Irritable bowel syndrome with constipation (2) Tubular adenoma of colon: Comment: 2021=TA scope repeat in 5 years, NEEDS SUPREP OR LOW VOLUME PREP Code(s): D12.6 - Benign neoplasm of colon, unspecified (3) GERD (gastroesophageal reflux disease): Code(s): K21.9 - Gastro-esophageal reflux disease without esophagitis (4) Erosive esophagitis: Code(s): K22.10 - Ulcer of esophagus without bleeding (5) 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 I will restart this. She is also on simethicone and omeprazole and senna. She says to me honestly ?I have not been getting my medicines because I have not been coming back to see you. ? Apparently this has more to do with all her other medical appointments than a problem with our service. She still has occasional bloating and gas, her pancreatic elastase was low in the past so we should consider Creon. She is only taking the omeprazole qd and asks for the rx to be lowered. She has had a lot of other medical problems, she just had VV surgery. She was d/c'ed by [facility] because she can not drink the shakes and is not losing weight under their program. ROV 8 weeks to consider creon after getting bowels moving. Orders: Orders Rast Allergen Today R19.7 - Diarrhea, unspecified Medications: New lubiprostone (Amitiza) 24 mcg PO BID 30 days 60 caps 6RF Refilled sennosides (senna) 17.2 mg (2 x 8.6 mg) PO BEDTIME 90 days PRN 180 tabs 0RF for constipation simethicone (Gas Relief (simethicone)) 125 mg PO TID 30 days PRN 90 tabs 3RF abdominal distention MDD 3 K21.9 - Gastro-esophageal reflux disease without esophagitis, K58.1 - Irritable bowel syndrome with constipation Labs: RAST report shows no significant food allergies TODAY'S VISIT She still has episodes of feeling too full but had some relief taking 1 Amitiza along with 2 senna qhs and the Linzess 290mcg qam. Her stomach is still sore in spots, but not overall sore as it was in the beginning. Its okay to do this until she runs out, but insurance will not pay for both medication. I suggest that she try 2 senna qhs and 2 senna qam with the Linzess so that we have a plan to move forward. When she has not moved her bowels she will ave early satiety when eating - i.e. she tried eating spaghetti w/o relief. Again, she has hx of SBO seen by Dr. Hall who thought it was r/t past abd surgeries and adhesions. She really wants surgery because everybody says this will happen again and I don't want to be on medicines for alyce rest of my life. Because I can't address the risk vs benefit of surgery and Dr. Hall process of thought I am referring her to him for discussion. ROV 6 weeks. [facility] Medical History (Updated 02/18/24 @ 14:02 by ERICA Vasquez) Diarrhea Arthralgia of hip, left Campylobacter diarrhea Epigastric pain Well woman exam Spasm of muscle of lower back Well woman exam Acute left-sided back pain with sciatica ASCUS of cervix with negative high risk HPV Elevated cholesterol History of depression ADD (attention deficit disorder) PTSD (post-traumatic stress disorder) History of methicillin resistant staphylococcus aureus (MRSA) Helicobacter pylori (H. pylori) infection Chronic low back pain Hx of cardiac murmur Asthma Tubular adenoma of colon Irritable bowel syndrome with constipation GERD (gastroesophageal reflux disease) Surgical History History of esophagogastroduodenoscopy (EGD) Hx of section History of endometrial ablation History of tubal ligation History of foot surgery Hx of colonoscopy with polypectomy Hx of cholecystectomy History of appendectomy Family History Father Family history of Alzheimer's disease History of dementia Mother Hx of type 2 diabetes mellitus Social History Household Members: Spouse and Family Housing: House Alcohol intake: current Alcohol intake frequency: a few times a month Patient Tobacco Use Status: Former Tobacco user Substance Use Type: Marijuana service: No Current occupational status: unemployed Sexual orientation: Straight/Heterosexual Gender identity: Female Female Reproductive History Menstrual Age of Menarche: 12 Review of Systems Const Denies fatigue, Denies fever(s), Denies night sweats, Denies poor appetite and Denies weight loss ENT Reports Normal hearing present, Denies dental pain, Denies dysphagia, Denies hearing loss, Denies mouth pain, Denies odynophagia, Denies throat swelling, Denies tongue swelling and Reports other (Dentition adequate) Card Reports no additional complaints Resp Reports no additional complaints GI Details: Denies abdominal pain, Denies melena, Reports bloating, Denies hematochezia, Reports constipation, Denies GI cramping, Denies dysphagia, Denies excessive flatus, Denies early satiety, Denies heartburn, Denies diarrhea, Denies nausea, Denies odynophagia, Denies vomiting and Denies hematemesis Skin/Breast Denies pruritus, Denies lesions, Denies rash and Denies jaundice Neuro Reports Normal hearing present and Denies Abnormal speech present Endo Denies fatigue Aller/Immun Denies throat swelling and Denies tongue swelling Physical Exam Vital Signs: Last Vital Signs Pulse 76 02/18/24 13:27 BP 90/63 02/18/24 13:27 BMI result Body Mass Index 38.9 Const General: cooperative, no acute distress, well developed and well groomed Nutritional Appearance: well nourished and obese Orientation/consciousness: oriented to person, oriented to place and oriented to time Limitations: No language barrier HEENT Head: Yes normocephalic and Yes atraumatic Eyes General: appearance normal, both eyes and all related structures Pupils: Equal, round and reactive pupils present Neck Neck: Yes normal visual inspection and Yes no lymphadenopathy Thyroid: Thyroid normal Resp Effort & Inspection: normal respiratory effort and able to speak in complete sentences Auscultation: clear to auscultation bilaterally Cardio Rate: regular rate Rhythm: regular rhythm Heart sounds: Normal, physiologic split S2 sound present Peripheral pulses: radial pulses present and posterior tibial pulses present GI Inspection: No distended, Yes Abdominal panniculus present and Yes obesity Palpation (GI): Soft to palpation, nontender, no guarding, not rigid and No hepatosplenomegaly present Percussion: Yes normal to percussion Auscultation: normal bowel sounds Rectal Exam - Female: deferred Skin General skin exam: no rashes or lesions noted, turgor normal, skin not dry, no jaundice, No spider nevi and no striae Rashes: no rashes Nails: normal Neuro General: oriented to person, oriented to place and oriented to time Cranial nerves: Yes Equal, round and reactive pupils present and Yes Normal hearing present Speech: No Abnormal speech present Extrem General: Yes normal to inspection, No clubbing, No cyanosis and No edema Psych Appearance: grossly normal and well kempt Mental Status: mental status grossly normal Speech and movement: Normal speech and movement present Affect: normal affect Attitude: cooperative Thought process: Normal thought process present and not confabulating Thought content: Normal thought content present Insight: Limited insight present (Psych) Judgement: Limited judgement present (Psych) Results Reviewed Results Reviewed: abs: RAST report shows no significant food allergies Assessment & Plan 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 Her stomach is still sore in spots, but not overall sore as it was in the beginning. Its okay to do this until she runs out, but insurance will not pay for both medication. I suggest that she try 2 senna qhs and 2 senna qam with the Linzess so that we have a plan to move forward. When she has not moved her bowels she will ave early satiety when eating - i.e. she tried eating spaghetti w/o relief. Again, she has hx of SBO seen by Dr. Hall who thought it was r/t past abd surgeries and adhesions. She really wants surgery because everybody says this will happen again and I don't want to be on medicines for alyce rest of my life. Because I can't address the risk vs benefit of surgery and Dr. Hall process of thought I am referring her to him for discussion. ROV 6 weeks. 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
== END 2024-02-18 14:07 | disposition home or self-care (01) ==
PROVIDERS: PCP Internal Medicine; Visit Provider Nurse Practitioner
DX: K58.1 Irritable bowel syndrome with constipation (principal); K21.9 Gastro-esophageal reflux disease without esophagitis; K22.10 Ulcer of esophagus without bleeding; K56.50 Intestinal adhesions [bands], unspecified as to partial versus complete obstruction
CPT/HCPCS: 99213

== ENCOUNTER → 2024-02-18 13:26 | Outpatient (BNVA) | payer OTHER, SELFPAY | PROVIDERS: PCP Internal Medicine; Visit Provider Nurse Practitioner | DX: K58.1 Irritable bowel syndrome with constipation (principal); K21.9 Gastro-esophageal reflux disease without esophagitis; K22.10 Ulcer of esophagus without bleeding; K22.70 Barrett's esophagus without dysplasia; K56.50 Intestinal adhesions [bands], unspecified as to partial versus complete obstruction | CPT/HCPCS: 99212 ==

== ENCOUNTER 2024-03-13 08:56 | Outpatient (AMB) | payer OTHER, SELFPAY ==
--- NOTE | 2024-03-13 09:31 | A.OFFVIS_ITS ---
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 Complaining of bilateral inguinal rash Last Pap/HPV was negative in 02/08 Last Mammogram was BI-RADS Last Colonoscopy 2 in 07/12 was in 12/09, the recommendation was to repeat in 5 years [facility] Medical History (Updated 03/13/24 @ 09:51 by Brian Borja MD) Well woman exam Diarrhea Arthralgia of hip, left Campylobacter diarrhea Epigastric pain Spasm of muscle of lower back Well woman exam Acute left-sided back pain with sciatica ASCUS of cervix with negative high risk HPV Elevated cholesterol History of depression ADD (attention deficit disorder) PTSD (post-traumatic stress disorder) History of methicillin resistant staphylococcus aureus (MRSA) Helicobacter pylori (H. pylori) infection Chronic low back pain Hx of cardiac murmur Asthma Tubular adenoma of colon Irritable bowel syndrome with constipation GERD (gastroesophageal reflux disease) Surgical History History of esophagogastroduodenoscopy (EGD) Hx of section History of endometrial ablation History of tubal ligation History of foot surgery Hx of colonoscopy with polypectomy Hx of cholecystectomy History of appendectomy Family History Father Family history of Alzheimer's disease History of dementia Mother Hx of type 2 diabetes mellitus Social History Household Members: Spouse and Family Housing: House Alcohol intake: current Alcohol intake frequency: a few times a month Patient Tobacco Use Status: Former Tobacco user Substance Use Type: Marijuana service: No Current occupational status: unemployed Sexual orientation: Straight/Heterosexual Gender identity: Female Female Reproductive History Menstrual Age of Menarche: 12 Review of Systems Const All systems reviewed & are unremarkable except as noted in HPI and below Card Reports as per HPI Resp Reports as per HPI GI Reports as per HPI and Reports no additional complaints Reports as per HPI Physical Exam Vital Signs: Last Vital Signs BP 124/70 03/13/24 09:32 BMI result Body Mass Index 38.7 Const General: cooperative, healthy appearing and comfortable Chest Chest palpation & inspection: normal inspection of the chest and normal palpation of entire chest wall Breast/axilla inspection: normal inspection of the breasts and normal inspection of the axillae Breast/axilla palpation: normal palpation of the breasts, normal palpation of the axillae and no axillary lymphadenopathy Resp Effort & Inspection: normal respiratory effort Auscultation: clear to auscultation bilaterally Percussion: percussion normal Cardio Palpation: normal PMI Rate: regular rate Rhythm: regular rhythm Heart sounds: no murmurs and no rubs Peripheral pulses: Peripheral pulses 2+ throughout GI Inspection: Yes normal to inspection Palpation (GI): Soft to palpation, nontender, no guarding, not rigid and No hepatosplenomegaly present Percussion: Yes normal to percussion Auscultation: normal bowel sounds Rectal Exam - Female: deferred General: Yes bladder normal to palpation External Female Exam: No lesion Speculum Exam - Vagina: normal appearance of the vagina, normal palpation, normal vaginal discharge and not erythematous Speculum Exam - Cervix: normal appearance of the cervix and normal palpation Bimanual exam- vagina & uterus: normal bimanual exam, normal palpation, uterine size normal, bladder normal to palpation, consistency normal and normal palpati on Bimanual Exam- Adnexa, other: normal adnexae, no masses and no tenderness Skin Other: Skin candidiasis in bilateral inguinal area Assessment & Plan Assessment & Plan (1) Well woman exam: Comment: ASCUS HPV negative in 02/07 02/08 co testing Code(s): Z01.419 - Encounter for gynecological examination (general) (routine) without abnormal findings Category: Medical Plan: Cotesting not indicated this year. Instructions given the patient to schedule next screening Mammogram in 07/13. Counseled the patient about the recommended dietary allowance of 1000 mg of Calcium & 600 IU of vitamin D. The patient was instructed to perform monthly self-breast exams and to schedule an annual exam in a year; All questions answered and the patient verbalized understanding. Instructed the patient to schedule annual exam in a year (2) Skin candidiasis: Code(s): B37.2 - Candidiasis of skin and nail Category: Medical Plan: The patient was instructed to keep the area dry, use hair blower after showering, use baby powder without Talc and Desitin cream in addition to applying lotrisone cream BID x5 days Medications: New clotrimazole-betamethasone 1-0.05 % 1 appl topical BID 5 days 45 grams 0RF Coding Level of Care Code Est Pt Prev Care 40-64y(76997) Diagnoses Well woman exam Z01.419 Skin candidiasis B37.2
[2024-03-13 09:32] VITALS: BP 124/70; BMI 38.7
== END 2024-03-13 09:55 | disposition home or self-care (01) ==
PROVIDERS: Visit Provider Obstetrics & Gynecology
DX: Z01.419 Encounter for gynecological examination (general) (routine) without abnormal findings (principal); B37.2 Candidiasis of skin and nail
CPT/HCPCS: 99396

== ENCOUNTER → 2024-03-13 08:56 | Outpatient (BNVA) | payer OTHER, SELFPAY | PROVIDERS: Visit Provider Obstetrics & Gynecology | DX: Z01.411 Encounter for gynecological examination (general) (routine) with abnormal findings (principal); B37.2 Candidiasis of skin and nail | CPT/HCPCS: 99396 ==

== ENCOUNTER 2024-04-07 15:36 | Outpatient (AMB) | payer OTHER, SELFPAY ==
[2024-04-07 15:41] VITALS: BP 134/95; PULSE 86; BMI 38.5
--- NOTE | 2024-04-07 15:41 | MHC.OFFVIS ---
Vital Signs 04/07/24 15:41 Height 5 ft 2 in Weight 210 lb 5.136 oz BMI 38.5 BP 134/95 H Blood Pressure Location Lt brachial Position Sitting Pulse 86 Intake Visit Reasons: 6 week follow up Intake Note: Amy returns to in office visit today in follow up of constipation. CC: Patient c/o feeling full and states that her appetite has changed. Patient's reports that he has notice that the patient gets hungry but does not get to finish her meals or does not eat at all because she has this sensation of fullness. She reports having accidents on her pants and she states that after starting the Linzess she feels she is peeing out of her butt . 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 Accompanied by: Spouse Allergies Seasonal Allergies Allergy (Unknown, Verified 06/06/24 15:26) Unknown No Known Drug Allergies Allergy (Verified 06/06/24 15:) Unknown HPI HPI 6 week follow up: Details: 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 Her stomach is still sore in spots, but not overall sore as it was in the beginning. Its okay to do this until she runs out, but insurance will not pay for both medication. I suggest that she try 2 senna qhs and 2 senna qam with the Linzess so that we have a plan to move forward. When she has not moved her bowels she will have early satiety when eating - i.e. she tried eating spaghetti w/o relief. Again, she has hx of SBO seen by Dr. Hall who thought it was r/t past abd surgeries and adhesions. She really wants surgery because everybody says this will happen again and I don't want to be on medicines for the rest of my life. Because I can't address the risk vs benefit of surgery and Dr. Hall process of thought I am referring her to him for discussion. ROV 6 weeks. Orders: Referrals General Surgery Referral K56.50 - Intestinal adhesions [bands], unspecified as to partial versus complete obstruction, K58.1 - Irritable bowel syndrome with constipation Medications: Changed From sennosides (senna) 17.2 mg (2 x 8.6 mg) PO BEDTIME PRN 180 tabs 0RF for constipation To sennosides (senna) 17.2 mg (2 x 8.6 mg) PO BID 360 tabs 1RF for constipation TODAY'S VISIT She is here today with her who is supportive She is still taking the Amitiza despite me telling her to stop it. She was taking the senna 2 tabs bid, but her pharmacy is saying that the script was not changed and she is running out early. I sent the RX so I'm not sure what the problem is. I WANT HER TO STOP THE AMITIZA since she is now having diarrhea and accidents. Despite emptying, she still has early satiety. This may be idiopathic gastroparesis, so will get GES. No nausea. ROV 5 weeks. [facility] Medical History Trochanteric bursitis of left hip Atelectasis Bone spur of posterior portion of right calcaneus Sebaceous cyst of labia Well woman exam Diarrhea Arthralgia of hip, left Campylobacter diarrhea Epigastric pain Spasm of muscle of lower back Well woman exam Acute left-sided back pain with sciatica ASCUS of cervix with negative high risk HPV Elevated cholesterol History of depression ADD (attention deficit disorder) PTSD (post-traumatic stress disorder) History of methicillin resistant staphylococcus aureus (MRSA) Helicobacter pylori (H. pylori) infection Chronic low back pain Hx of cardiac murmur Asthma Tubular adenoma of colon Irritable bowel syndrome with constipation GERD (gastroesophageal reflux disease) Surgical History History of esophagogastroduodenoscopy (EGD) Hx of section History of endometrial ablation History of tubal ligation History of foot surgery Hx of colonoscopy with polypectomy Hx of cholecystectomy History of appendectomy Family History Father Family history of Alzheimer's disease History of dementia Mother Hx of type 2 diabetes mellitus Social History Household Members: Spouse and Family Housing: House Alcohol intake: current Alcohol intake frequency: a few times a month Patient Tobacco Use Status: Former Tobacco user Substance Use Type: Marijuana service: No Current occupational status: unemployed Sexual orientation: Straight/Heterosexual Gender identity: Female Female Reproductive History Menstrual Age of Menarche: 12 Review of Systems Const Denies fatigue, Denies fever(s), Denies night sweats, Denies poor appetite and Denies weight loss ENT Reports Normal hearing present, Denies dental pain, Denies dysphagia, Denies hearing loss, Denies mouth pain, Denies odynophagia, Denies throat swelling, Denies tongue swelling and Reports other (Dentition adequate) Card Reports no additional complaints Resp Reports no additional complaints GI Details: Denies abdominal pain, Denies melena, Denies bloating, Denies hematochezia, Denies constipation, Denies GI cramping, Denies dysphagia, Denies excessive flatus, Reports early satiety, Reports heartburn, Reports diarrhea, Reports nausea, Denies odynophagia, Denies vomiting and Denies hematemesis Skin/Breast Denies pruritus, Denies lesions, Denies rash and Denies jaundice Neuro Reports Normal hearing present and Denies Abnormal speech present Endo Denies fatigue Aller/Immun Denies throat swelling and Denies tongue swelling Physical Exam Vital Signs: Last Vital Signs Pulse 86 04/07/24 15:41 BP 134/95 H 04/07/24 15:41 BMI result Body Mass Index 38.5 Const General: cooperative, no acute distress, well developed and well groomed Nutritional Appearance: well nourished and obese morbidly obese Orientation/consciousness: oriented to person, oriented to place and oriented to time Limitations: No language barrier HEENT Head: Yes normocephalic and Yes atraumatic Eyes General: appearance normal, both eyes and all related structures Pupils: Equal, round and reactive pupils present Neck Neck: Yes normal visual inspection and Yes no lymphadenopathy Thyroid: Thyroid normal Resp Effort & Inspection: normal respiratory effort and able to speak in complete sentences Auscultation: clear to auscultation bilaterally Cardio Rate: regular rate Rhythm: regular rhythm Heart sounds: Normal, physiologic split S2 sound present Peripheral pulses: radial pulses present and posterior tibial pulses present GI Inspection: No distended, Yes Abdominal panniculus present and Yes obesity Palpation (GI): Soft to palpation, nontender, no guarding, not rigid and No hepatosplenomegaly present Percussion: Yes normal to percussion Auscultation: normal bowel sounds Rectal Exam - Female: deferred Skin General skin exam: no rashes or lesions noted, turgor normal, skin not dry, no jaundice, No spider nevi and no striae Rashes: no rashes Nails: normal Neuro General: oriented to person, oriented to place and oriented to time Cranial nerves: Yes Equal, round and reactive pupils present and Yes Normal hearing present Speech: No Abnormal speech present Extrem General: Yes normal to inspection, No clubbing, No cyanosis and No edema Psych Appearance: grossly normal and well kempt Mental Status: mental status grossly normal Speech and movement: Normal speech and movement present Affect: normal affect Attitude: cooperative Thought process: Normal thought process present and not confabulating Thought content: Normal thought content present Insight: Limited insight present (Psych) Judgement: Limited judgement present (Psych) Assessment & Plan 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 She was taking the senna 2 tabs bid, but her pharmacy is saying that the script was not changed and she is running out early. I sent the RX so I'm not sure what the problem is. I WANT HER TO STOP THE AMITIZA since she is now having diarrhea and accidents. Despite emptying, she still has early satiety. This may be idiopathic gastroparesis, so will get GES. No nausea. ROV 5 weeks. Orders: Orders NM gastric emptying study 04/07/24 R68.81 - Early satiety Medications: Refilled sennosides (senna) 17.2 mg (2 x 8.6 mg) PO BID 360 tabs 1RF for constipation sennosides (senna) 17.2 mg (2 x 8.6 mg) PO BID 360 tabs 1RF for constipation simethicone (Gas Relief (simethicone)) 125 mg PO TID PRN 90 tabs 3RF abdominal distention 30 days MDD 3 K58.1 - Irritable bowel syndrome with constipation, K21.9 - Gastro-esophageal reflux disease without esophagitis linaclotide (Linzess) 290 mcg PO QAM 30 caps 6RF 30 days K58.1 - Irritable bowel syndrome with constipation Coding Level of Care Code Est Pt Level 3 (12958) Diagnoses Irritable bowel syndrome with constipation K58.1 GERD (gastroesophageal reflux disease) K21.9 Erosive esophagitis K22.10 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
== END 2024-04-07 16:50 | disposition home or self-care (01) ==
PROVIDERS: PCP Internal Medicine; Visit Provider Nurse Practitioner
DX: K58.1 Irritable bowel syndrome with constipation (principal); K21.9 Gastro-esophageal reflux disease without esophagitis; K22.10 Ulcer of esophagus without bleeding; K56.50 Intestinal adhesions [bands], unspecified as to partial versus complete obstruction; R68.81 Early satiety
CPT/HCPCS: 99213

== ENCOUNTER → 2024-04-07 15:36 | Outpatient (BNVA) | payer OTHER, SELFPAY | PROVIDERS: PCP Internal Medicine; Visit Provider Nurse Practitioner | DX: K58.1 Irritable bowel syndrome with constipation (principal); K21.9 Gastro-esophageal reflux disease without esophagitis; K22.70 Barrett's esophagus without dysplasia; K56.50 Intestinal adhesions [bands], unspecified as to partial versus complete obstruction; R68.81 Early satiety | CPT/HCPCS: 99212 ==

== ENCOUNTER 2024-05-01 15:04 | Outpatient (REF) | payer OTHER, SELFPAY ==
[2024-05-01 17:04] LABS: Anion Gap 13 (12-20); Blood Urea Nitrogen 9 mg/dL (9-16); Calcium 9.8 mg/dL (8.4-10.2); Carbon Dioxide 25 mmol/L (22-29); Chloride 110 mmol/L (96-108); Estimated Glomerular Filt Rate > 60; Glucose Random 103 mg/dL (60-115); Sodium 144 mmol/L (135-145)
[2024-05-01 17:10] LABS: Free T4 (Free Thyroxine) 0.82 ng/dL (0.71-1.85); Thyroid Stimulating Hormone 5.41 uIU/mL (0.32-4.0)
== END 2024-05-01 15:05 | disposition home or self-care (01) ==
LOC: HO.LAB 15:04
PROVIDERS: PCP Internal Medicine; Visit Provider Internal Medicine
DX: E03.9 Hypothyroidism, unspecified (principal); K21.9 Gastro-esophageal reflux disease without esophagitis; Z87.19 Personal history of other diseases of the digestive system
CPT/HCPCS: 36415; 80048; 84439; 84443

== ENCOUNTER → 2024-05-18 08:04 | Outpatient (REF) | payer OTHER, SELFPAY ==
--- NOTE | ~2024-05-18 | NM_ITS ---
EXAMINATION: IA RADIONUCLIDE SOLID FOOD GASTRIC EMPTYING 4-HOUR STUDY CLINICAL INFORMATION: Early satiety. COMPARISON: None TECHNIQUE: A standard meal consisting of 4 oz of Egg Beaters brand tagged with 1000 microcuries Tc-99m Sulfur Colloid, 8 oz water and 2 slices of toast with jelly was administered orally to the patient. Images were obtained using a dual head gamma camera in the anterior and posterior projections over of the stomach immediately post ingestion and at hourly intervals up to 4 hours post ingestion. The anterior and posterior counts at each time interval were averaged using the geometric mean and expressed as percentage of the immediate post ingestion counts. FINDINGS: There is good visualization of activity in the stomach immediately post ingestion. As the study progresses, there is good clearance of activity from the stomach and visualization of progressively increasing small bowel activity. By the end of the study, there is almost no retention noted in the stomach. Retention in the stomach at each time interval was: 1 hour 82% (normal 37%-90%) 2 hours 65% (normal 30%-60%) 3 hours 45% 4 hours 3% (normal 0%-10%) IA/IA gastric emptying study IMPRESSION: Normal 4-hour solid food gastric emptying study. For solid meal, rapid gastric emptying is less than 30% at 60 minutes. Delayed gastric emptying criteria is more than 60% remaining at 120 minutes or more than 10% at 240 minutes. The 4-hour value is the best discriminator of a normal or abnormal result). Gastric emptying study grading per JNMT Consensus Recommendations in 2008 (https://tech.snmjournals.org/content/36/1/44) Grade 1 (mild retention): 11-20% at 4h Grade 2 (moderate retention): 21-35% at 4h Grade 3 (severe retention): 36-50% at 4h Grade 4 (very severe retention): >50% retention at 4h Electronically signed by: Hollie Marshall MD 05/18/2024 02:52 PM EDT
== END ==
LOC: HO.NUCMED 08:04
PROVIDERS: PCP Internal Medicine; Visit Provider Nurse Practitioner
DX: R68.81 Early satiety (principal)
CPT/HCPCS: 78264; A9541

== ENCOUNTER 2024-05-24 15:10 | Outpatient (AMB) | payer OTHER, SELFPAY ==
[2024-05-24 15:12] VITALS: BMI 39.7
--- NOTE | 2024-05-24 15:12 | MHC.OFFVIS ---
Vital Signs 05/24/24 15:12 Height 5 ft 2 in Weight 217 lb BMI 39.7 Intake Visit Reasons: Abdominal Adhesions Intake Note: This patient presents for Abdominal Adhesions. Pt c/o; reports occasional watery stools and other days she can be constipated, reports unable to pass gas completely, reports she is not eating alot but has noticed she has gained weight. 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 Required: No Accompanied by: Spouse Allergies Seasonal Allergies Allergy (Unknown, Verified 05/24/24 15:36) Unknown No Known Drug Allergies Allergy (Verified 05/24/24 15:36) Unknown Medication List - Last Reconciled 05/24/24 by Ravinder Hall MD albuterol sulfate 90 mcg/actuation (Ventolin HFA) inhalation azelaic acid 15% 1 appl topical DAILY PRN cetirizine 10 mg PO DAILY PRN cholecalciferol (vitamin D3) 125 mcg PO DAILY clonazepam 0.5 mg PO BID PRN clotrimazole-betamethasone 1-0.05 % 1 appl topical BID 5 days dextroamphetamine-amphetamine 20 mg 1 tab PO BID@0900,1400 linaclotide (Linzess) 290 mcg PO QAM 30 days lubiprostone (Amitiza) 24 mcg PO BID 30 days mecobalamin (vitamin B12) 1,000 mcg sublingual DAILY metronidazole 0.75% 1 appl topical BID PRN omeprazole 40 mg PO BID sennosides (senna) 17.2 mg (2 x 8.6 mg) PO BID simethicone (Gas Relief (simethicone)) 125 mg PO TID PRN 30 days MDD 3 tizanidine 4 mg PO BID PRN 30 days zolpidem 10 mg PO BEDTIME HPI HPI Abdominal Adhesions: Details: [age] year old female here for follow-up for her history of small-bowel obstruction. She has had multiple abdominal surgeries in the past he had I admitted her to the hospital last Jan, 2024 because of partial small-bowel obstruction. This was deemed to be likely secondary to her postop adhesions. She stayed in the hospital for about 4 days then. She says she continues to have problems with bloating and says that she was up with milk intake. She says she has early satiety She has chronic GI issues and is being followed by the gastroenterology service for many years She underwent a gastric emptying study last week as ordered by the GI service. This seemed to be normal. [facility] Medical History Trochanteric bursitis of left hip Atelectasis Bone spur of posterior portion of right calcaneus Sebaceous cyst of labia Well woman exam Diarrhea Arthralgia of hip, left Campylobacter diarrhea Epigastric pain Spasm of muscle of lower back Well woman exam Acute left-sided back pain with sciatica ASCUS of cervix with negative high risk HPV Elevated cholesterol History of depression ADD (attention deficit disorder) PTSD (post-traumatic stress disorder) History of methicillin resistant staphylococcus aureus (MRSA) Helicobacter pylori (H. pylori) infection Chronic low back pain Hx of cardiac murmur Asthma Tubular adenoma of colon Irritable bowel syndrome with constipation GERD (gastroesophageal reflux disease) Surgical History History of esophagogastroduodenoscopy (EGD) Hx of section History of endometrial ablation History of tubal ligation History of foot surgery Hx of colonoscopy with polypectomy Hx of cholecystectomy History of appendectomy Family History Father Family history of Alzheimer's disease History of dementia Mother Hx of type 2 diabetes mellitus Social History Household Members: Spouse and Family Housing: House Alcohol intake: current Alcohol intake frequency: a few times a month Patient Tobacco Use Status: Former Tobacco user Substance Use Type: Marijuana service: No Current occupational status: unemployed Sexual orientation: Straight/Heterosexual Gender identity: Female Female Reproductive History Menstrual Age of Menarche: 12 Review of Systems Const Denies chills and Denies fever(s) Card Denies chest pain, Denies dyspnea and Denies dyspnea on exertion Resp Denies cough, Denies dyspnea and Denies dyspnea on exertion GI Denies hematochezia and Denies change in bowel habits Denies hematuria Musc Denies back pain and Denies limited range of motion Neuro Denies focal weakness and Denies convulsions Psych Denies depression and Denies mood swings Physical Exam Vital Signs: BMI result Body Mass Index 39.7 Const Other: Appears morbidly obese General: comfortable and no acute distress Resp Effort & Inspection: normal respiratory effort Cardio Rate: regular rate GI Palpation (GI): Soft to palpation, not firm and nontender Assessment & Plan Assessment & Plan (1) Early satiety: Code(s): R68.81 - Early satiety Category: Medical Plan: She is here because of her history of partial small-bowel obstruction. I admitted her to the hospital last January 2024 secondary SBO likely secondary to postop adhesions from her previous abdominal surgeries. She has had a long history of GI issues She has early satiety and frequent bloating. I am going to send her for a follow-up CT scan with oral contrast I had a long discussion with her the benefits of weight loss because of her morbid obesity. She says she had been [facility] by [facility] in [facility] past. She is to continue to follow up with the optical glass etcher service. Her gastric emptying study was normal We will see her in the office after her repeat CT scan. Orders: Orders CT abdomen pelvis wo IV con Today R68.81 - Early satiety Coding Level of Care Code Est Pt Level 3 (12718) Diagnoses Early satiety R68.81
== END 2024-05-24 15:50 | disposition home or self-care (01) ==
PROVIDERS: PCP Internal Medicine; Visit Provider Surgery
DX: R68.81 Early satiety (principal)
CPT/HCPCS: 99213

== ENCOUNTER → 2024-05-24 15:10 | Outpatient (BNVA) | payer OTHER, SELFPAY | PROVIDERS: PCP Internal Medicine; Visit Provider Surgery | DX: R68.81 Early satiety (principal) | CPT/HCPCS: 99212 ==

== ENCOUNTER 2024-06-06 15:22 | Outpatient (AMB) | payer OTHER, SELFPAY ==
--- NOTE | 2024-06-06 15:24 | A.OFFVIS_ITS ---
Vital Signs 06/06/24 15:29 Height 5 ft 2 in Weight 213 lb 13.574 oz BMI 39.1 BP 97/59 L Blood Pressure Location Lt brachial Position Sitting Respiration 78 H Intake Visit Reasons: Follow up Gastric emptying scan Intake Note: Amy presents to in office follow up of gastric emptying scan. CC: Patient reports occasional episodes of stool incontinence and loose stools. She also states that she was sent to have an echocardiogram done. 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 She was taking the senna 2 tabs bid, but her pharmacy is saying that the script was not changed and she is running out early. I sent the RX so I'm not sure what the problem is. I WANT HER TO STOP THE AMITIZA since she is now having diarrhea and accidents. Despite emptying, she still has ealry satiety. This may be idiopathic gastroparesis, so will get GES. No nausea. ROV 5 weeks. 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: Comment: DISCOVERED ON 2021 SCOPE REPEAT IN 2 YEARS TO ASSESS FOR HEALING Code(s): K22.70 - Gibson's esophagus without dysplasia Category: Medical (5) Small bowel obstruction due to adhesions: Code(s): K56.50 - Intestinal adhesions [bands], unspecified as to partial versus complete obstruction Category: Medical (6) Early satiety: Code(s): R68.81 - Early satiety Category: Medical Orders: Orders NM gastric emptying study Today R68.81 - Early satiety Medications: Refilled sennosides (senna) 17.2 mg (2 x 8.6 mg) PO BID 360 tabs 1RF for constipation sennosides (senna) 17.2 mg (2 x 8.6 mg) PO BID 360 tabs 1RF for constipation simethicone (Gas Relief (simethicone)) 125 mg PO TID 30 days PRN 90 tabs 3RF abdominal distention MDD 3 K21.9 - Gastro-esophageal reflux disease without esophagitis, K58.1 - Irritable bowel syndrome with constipation linaclotide (Linzess) 290 mcg PO QAM 30 days 30 caps 6RF K58.1 - Irritable bowel syndrome with constipation GES 05/18/24 IMPRESSION: Normal 4-hour solid food gastric emptying study. TODAYS VISIT She continues to struggle with lack of appetite and c/o wt gain, but at the same time she says she has nausea - the nausea is worse when I try to stuff myself . she also has had some episodes of fecal incontinence with the LInzess 290. BUT she feels the prior nausea is improved. Apparently, she was told she had a small bowel motility disorder causing SBO in the ER. With this in mind, will do a trial of reglan 5mg qidac and decrease the Linzess to 145. I would like her to stop the senna as well. She has a very emotional presentation and is not entirely clear which of her sx bother her the most or the timing. She also sees Dr. Hall who is ordering another CT. He is involved r/t the possibility of sbo. She says he recommended wt mgmt and told her to speak to me about it....however, since she has long periods w/o wanting to eat I don't see how they would really be of help to her (also in the past she did not want to follow their diet so she was discharged from the program). GES was normal. ROV 4 weeks. [facility] Medical History Trochanteric bursitis of left hip Atelectasis Bone spur of posterior portion of right calcaneus Sebaceous cyst of labia Well woman exam Diarrhea Arthralgia of hip, left Campylobacter diarrhea Epigastric pain Spasm of muscle of lower back Well woman exam Acute left-sided back pain with sciatica ASCUS of cervix with negative high risk HPV Elevated cholesterol History of depression ADD (attention deficit disorder) PTSD (post-traumatic stress disorder) History of methicillin resistant staphylococcus aureus (MRSA) Helicobacter pylori (H. pylori) infection Chronic low back pain Hx of cardiac murmur Asthma Tubular adenoma of colon Irritable bowel syndrome with constipation GERD (gastroesophageal reflux disease) Surgical History History of esophagogastroduodenoscopy (EGD) Hx of section History of endometrial ablation History of tubal ligation History of foot surgery Hx of colonoscopy with polypectomy Hx of cholecystectomy History of appendectomy Family History Father Family history of Alzheimer's disease History of dementia Mother Hx of type 2 diabetes mellitus Social History Household Members: Spouse and Family Housing: House Alcohol intake: current Alcohol intake frequency: a few times a month Patient Tobacco Use Status: Former Tobacco user Substance Use Type: Marijuana service: No Current occupational status: unemployed Sexual orientation: Straight/Heterosexual Gender identity: Female Female Reproductive History Menstrual Age of Menarche: 12 Review of Systems Const Denies fatigue, Denies fever(s), Denies night sweats, Reports poor appetite, Reports weight gain and Denies weight loss ENT Reports Normal hearing present, Denies dental pain, Denies dysphagia, Denies hearing loss, Denies mouth pain, Denies odynophagia, Denies throat swelling, Denies tongue swelling and Reports other (Dentition adequate) Card Reports no additional complaints Resp Reports no additional complaints GI Details: Denies abdominal pain, Denies melena, Denies bloating, Denies hematochezia, Reports constipation, Denies GI cramping, Denies dysphagia, Denies excessive flatus, Denies early satiety, Reports heartburn, Denies diarrhea, Reports nausea, Denies odynophagia, Denies vomiting and Denies hematemesis Skin/Breast Denies pruritus, Denies lesions, Denies rash and Denies jaundice Neuro Reports Normal hearing present and Denies Abnormal speech present Endo Denies fatigue Aller/Immun Denies throat swelling and Denies tongue swelling Physical Exam Vital Signs: Last Vital Signs Resp 78 H 06/06/24 15:29 BP 97/59 L 06/06/24 15:29 BMI result Body Mass Index 39.1 Const General: cooperative, no acute distress, well developed and well groomed Nutritional Appearance: well nourished and obese Orientation/consciousness: oriented to person, oriented to place and oriented to time Limitations: No language barrier HEENT Head: Yes normocephalic and Yes atraumatic Eyes General: appearance normal, both eyes and all related structures Pupils: Equal, round and reactive pupils present Neck Neck: Yes normal visual inspection and Yes no lymphadenopathy Thyroid: Thyroid normal Resp Effort & Inspection: normal respiratory effort and able to speak in complete sentences Auscultation: clear to auscultation bilaterally Cardio Rate: regular rate Rhythm: regular rhythm Heart sounds: Normal, physiologic split S2 sound present Peripheral pulses: radial pulses present and posterior tibial pulses present GI Inspection: No distended, No Abdominal panniculus present and Yes obesity Palpation (GI): Soft to palpation, nontender, no guarding, not rigid and No hepatosplenomegaly present Percussion: Yes normal to percussion Auscultation: normal bowel sounds Rectal Exam - Female: deferred Skin General skin exam: no rashes or lesions noted, turgor normal, skin not dry, no jaundice, No spider nevi and no striae Rashes: no rashes Nails: normal Neuro General: oriented to person, oriented to place and oriented to time Cranial nerves: Yes Equal, round and reactive pupils present and Yes Normal hearing present Speech: No Abnormal speech present Extrem General: Yes normal to inspection, No clubbing, No cyanosis and No edema Psych Appearance: grossly normal and well kempt Mental Status: mental status grossly normal Speech and movement: Normal speech and movement present Affect: Labile affect present, Sad affect present and Anxious affect present Attitude: cooperative Thought process: Circumstantial thought process present, not confabulating and Perseverating thought process present Thought content: Normal thought content present Insight: Poor insight present (Psych) Judgement: Poor judgement present (Psych) Assessment & Plan 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 she also has had some episodes of fecal incontinence with the LInzess 290. BUT she feels the prior nausea is improved. Apparently, she was told she had a small bowel motility disorder causing SBO in the ER. With this in mind, will do a trial of reglan 5mg qidac and decrease the Linzess to 145. I would like her to stop the senna as well. She has a very emotional presentation and is not entirely clear which of her sx bother her the most or the timing. She also sees Dr. Hall who is ordering another CT. He is involved r/t the possibility of sbo. She says he recommended wt mgmt and told her to speak to me about it....however, since she has long periods w/o wanting to eat I don't see how they would really be of help to her (also in the past she did not want to follow their diet so she was discharged from the program). GES was normal. ROV 4 weeks. Medications: New metoclopramide HCl (Reglan) 5 mg PO QIDACHS 120 tabs 3RF K59.9 - Functional intestinal disorder, unspecified linaclotide (Linzess) 145 mcg PO QAM 30 caps 3RF K58.1 - Irritable bowel syndr ome with constipation Discontinued lubiprostone Discontinued Reason: Doctor's Order 24 mcg PO BID 30 days 60 caps 6RF On Hold linaclotide (Linzess) Hold Comment: Doctor's Order 290 mcg PO QAM 30 days 30 caps 6RF K58.1 - Irritable bowel syndrome with constipation Coding Level of Care Code Est Pt Level 4 (76309) Diagnoses Irritable bowel syndrome with constipation K58.1 GERD (gastroesophageal reflux disease) K21.9 Erosive esophagitis K22.10 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
[2024-06-06 15:29] VITALS: BP 97/59; RESP 78; BMI 39.1
== END 2024-06-06 16:38 | disposition home or self-care (01) ==
PROVIDERS: PCP Internal Medicine; Visit Provider Nurse Practitioner
DX: K58.1 Irritable bowel syndrome with constipation (principal); K21.9 Gastro-esophageal reflux disease without esophagitis; K22.10 Ulcer of esophagus without bleeding; K22.70 Barrett's esophagus without dysplasia; K59.9 Functional intestinal disorder, unspecified
CPT/HCPCS: 99214

== ENCOUNTER → 2024-06-06 15:22 | Outpatient (BNVA) | payer OTHER, SELFPAY | PROVIDERS: PCP Internal Medicine; Visit Provider Nurse Practitioner | DX: K21.9 Gastro-esophageal reflux disease without esophagitis (principal); K58.1 Irritable bowel syndrome with constipation; K22.70 Barrett's esophagus without dysplasia; K56.50 Intestinal adhesions [bands], unspecified as to partial versus complete obstruction; R68.81 Early satiety | CPT/HCPCS: 99212 ==

== ENCOUNTER → 2024-06-21 15:01 | Outpatient (REF) | payer OTHER, SELFPAY ==
--- NOTE | 2024-06-21 15:05 | CA_ITS ---
Transthoracic Echocardiogram Patient (Last, First, Middle): Amy Corona, Gender: Female Date of : 1970 Age: 54 Procedure Date: 06/21/2024 Procedure Type: Transthoracic Echocardiogram Location: OP Height: 157.48 cm Weight: 95.71 kg BSA: 1.96 m2 Heart Rate: bpm BP: 126 / 86 mmHg In Processing Instructor: TO Referring MD: Ravinder Lombardo MD Building Contractor: Nico Garnica MD Symptoms: R60.9 EDEMA Study Quality: Fair ECG Rhythm: Sinus Conclusions: - Essentially normal study Findings Left Ventricle Normal left ventricular size, thickness, and systolic function. The visually estimated ejection fraction is between 60-65%. Regional wall motion abnormalities can not be excluded due to suboptimal endocardial definition. Spectral Doppler is indicative of a normal filling pattern. Right Ventricle Normal right ventricular cavity size and systolic function. Atria Both atria are normal in size. There is no evidence of interatrial shunt. Aortic Valve The aortic valve structure and function is likely normal. There is no aortic valve stenosis. There is no aortic valve regurgitation. Mitral Valve Likely normal mitral valve structure and function. There is trace mitral valve regurgitation. There is no mitral valve stenosis. Pulmonic Valve The pulmonic valve is likely normal. There is trace to mild pulmonic valve regurgitation. Tricuspid Valve Likely normal tricuspid valve structure and function. Tricuspid regurgitation envelope is inadequate for calculation of right ventricular systolic pressure. Normal right atrial pressure. Great Vessels All visible segments of the aorta are normal in size. The pulmonary artery was not well visualized. There is no dilatation of the ascending aorta measuring 3.00 cm. Venous The inferior vena cava is normal in size. Pericardium/Pleural There is no evidence of pericardial effusion. Prior Study Comparison no study in the previous 5 years for comparison Measurements 2D Linear Measurements IVSd: 0.99 0.6-0.9/0.6-1.0 cm LVIDd: 4.22 3.9-5.3/4.2-5.9 cm LVIDd Index: 2.15 2.4-3.2/2.2-3.1 cm/m2 LVIDs: 2.63 2.0-3.6 cm LVPWd: 0.89 0.7-1.1 cm LA Diam: 3.40 2.7-3.8/3.0-4.0 cm LAIDs Index: 1.73 1.5-2.3 cm/m2 LV Mass: 174.29 67-162/88-224 g LV Mass Index: 88.92 43-95/49-115 g/m2 LVOT Diam: 2.00 3.0+(-)1.3 cm 2D Systolic Function EF 4C: 66.30 >55% EF 2C: 57.30 >55% EF BiP: 63.10 >55% Mitral Valve MV Pk E: 0.74 MV PK A: 0.35 MV Decel Time: 224.00 E/A: 2.10 E'Lateral: 9.36 E'Medial: 7.51 E/E' Med: 9.90 E/E' Lat: 7.90 PHT: 66.00 MVA PHT: 3.33 Decel [place]: 3.30 Aortic Valve AoV Pk Fadi: 1.26 AoV Mn Fadi: 0.94 AoV VTI: 0.29 AoV Pk Grad: 6.00 Aov Mn Grad: 4.00 ZAK Cont.VTI: 3.18 LVOT LVOT Pk Fadi: 1.18 LVOT Mn Fadi: 0.79 LVOT VTI: 0.30 LVOT Pk Grad: 6.00 LVOT Mn Grad: 3.00 LVOT Diam: 2.00 LVOT Area: 3.14 Diastolic Function MV Pk E: 0.74 MV Pk A: 0.35 E/A: 2.10 E'Medial: 7.51 E/E' Med: 9.90 E' Laterial: 9.36 E/E' Lat: 7.90 Right Ventricle TAPSE (mm): 18.70 TVS' Fadi: 9.91 Tricuspid Valve RA Press: 3.00 Great Vessels Aorta Sinus of Valsalva: 2.50 2.0-3.5 cm Ao Asc: 3.00 2.1-3.4 cm Updated in Other Vendor System with Status of Final Nioc Garnica MD electronically signed on 06/22/2024 9:47:03 AM with status of Final
== END ==
LOC: HO.CARD 15:01
PROVIDERS: PCP Internal Medicine; Visit Provider Internal Medicine
DX: R60.9 Edema, unspecified (principal)
CPT/HCPCS: 93306

== ENCOUNTER → 2024-06-21 15:05 | Outpatient (BNV) | payer OTHER, SELFPAY | PROVIDERS: PCP Internal Medicine; Visit Provider Internal Medicine Cardiovascular Disease | DX: I37.1 Nonrheumatic pulmonary valve insufficiency (principal) | CPT/HCPCS: 93306 ==

== ENCOUNTER 2024-07-10 15:42 | Outpatient (REF) | payer OTHER, SELFPAY ==
--- NOTE | ~2024-07-10 | MM_ITS ---
EXAMINATION: MM SCREENING DIGITAL BREAST TOMOSYNTHESIS, BILATERAL CLINICAL INFORMATION: Screening. Asymptomatic. COMPARISON: Mammography: Comparison is made with available priors TECHNIQUE: Digital breast mammography with tomosynthesis is performed in both the craniocaudal and mediolateral oblique views along with computer-aided detection (CAD). FINDINGS: There are scattered areas of fibroglandular density (ACR BI-RADS breast composition Category b). There are no significant masses, abnormal calcifications, or other abnormalities. MM/MM tomosynthesis screening BI IMPRESSION: No mammographic evidence of malignancy. ASSESSMENT: BI-RADS BI-RADS 1 - Negative RECOMMENDATION: Routine annual mammography screening. 1 year F/U This examination should not preclude the clinical evaluation of a suspicious palpable abnormality. This patient's information was entered into a reminder system with a target due date for their next mammogram. Electronically signed by: Dasha Matthews DO 07/21/2024 10:47 AM EDT
== END 2024-07-10 15:43 | disposition home or self-care (01) ==
LOC: HO.MAMMO 15:42
PROVIDERS: PCP Internal Medicine; Referring Provider Obstetrics & Gynecology; Visit Provider Internal Medicine
DX: Z12.31 Encounter for screening mammogram for malignant neoplasm of breast (principal)
CPT/HCPCS: 77063; 77067

== ENCOUNTER → 2024-07-10 16:00 | Outpatient (BNV) | payer OTHER, SELFPAY | PROVIDERS: PCP Internal Medicine; Referring Provider Obstetrics & Gynecology; Visit Provider Internal Medicine | DX: Z12.31 Encounter for screening mammogram for malignant neoplasm of breast (principal) | CPT/HCPCS: 77063; 77067 ==

== ENCOUNTER 2024-07-14 14:08 | Outpatient (AMB) | payer OTHER, SELFPAY ==
--- NOTE | 2024-07-14 14:11 | MHC.OFFVIS ---
Vital Signs 07/14/24 14:12 Height 5 ft 2 in Weight 215 lb 9.793 oz BMI 39.4 BP 121/78 Blood Pressure Location Rt brachial Position Sitting Pulse 84 Pulse Source Pulse Oximeter Intake Visit Reasons: Follow up Intake Note: Patient follow up for Barretts esophagus. 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 she also has had some episodes of fecal incontinence with the LInzess 290. BUT she feels the prior nausea is improved. Apparently, she was told she had a small bowel motility disorder causing SBO in the ER. With this in mind, will do a trial of reglan 5mg qidac and decrease the Linzess to 145. I would like her to stop the senna as well. She has a very emotional presentation and is not entirely clear which of her sx bother her the most or the timing. She also sees Dr. Hall who is ordering another CT. He is involved r/t the possibility of sbo. She says he recommended wt mgmt and told her to speak to me about it....however, since she has long periods w/o wanting to eat I don't see how they would really be of help to her (also in the past she did not want to follow their diet so she was discharged from the program). GES was normal. ROV 4 weeks. Medications: New metoclopramide HCl (Reglan) 5 mg PO QIDACHS 120 tabs 3RF K59.9 - Functional intestinal disorder, unspecified linaclotide (Linzess) 145 mcg PO QAM 30 caps 3RF K58.1 - Irritable bowel syndrome with constipation Discontinued lubiprostone Discontinued Reason: Doctor's Order 24 mcg PO BID 30 days 60 caps 6RF On Hold linaclotide (Linzess) Hold Comment: Doctor's Order 290 mcg PO QAM 30 days 30 caps 6RF K58.1 - Irritable bowel syndrome with constipation TODAY'S VISIT She is doing better in terms of fecal incontinence with the decreased dose of Linzess. We will continue her on the 145 micro g dose. However, her lack of appetite and nausea seems to be relatively unchanged. The nausea comes and goes. She admits she has trouble adhering to the 4 times a day Reglan dosing, this is common it is not an easy dosing schedule. She has been having some recent trouble with balance and just being sort of ?off.? She recently changed her shoes to try to gain better balance but I guess her feet have some swelling issues. I have asked her to try to keep a diary for the next 8 weeks to see if taking the metoclopramide as scheduled times, as best she can, impacts her nausea and how it impacts both her appetite and her nausea. She did not understand that she can and in fact should take this medicine even if she has not eaten. I also want her to write down how she is feeling in terms of balance so that we can try to decipher if the medications have anything to do with this problem that seems to have developed suddenly over the past 2 weeks. She denies any dizziness, hearing problems or ear fullness, and I did a quick neuro exam that does not seem to show any compromise in that area. She also had a normal echocardiogram. Return office visit in 8 weeks I performed a rectal exam for perceived lump. [facility] Medical History Trochanteric bursitis of left hip Atelectasis Bone spur of posterior portion of right calcaneus Sebaceous cyst of labia Well woman exam Diarrhea Arthralgia of hip, left Campylobacter diarrhea Epigastric pain Spasm of muscle of lower back Well woman exam Acute left-sided back pain with sciatica ASCUS of cervix with negative high risk HPV Elevated cholesterol History of depression ADD (attention deficit disorder) PTSD (post-traumatic stress disorder) History of methicillin resistant staphylococcus aureus (MRSA) Helicobacter pylori (H. pylori) infection Chronic low back pain Hx of cardiac murmur Asthma Tubular adenoma of colon Irritable bowel syndrome with constipation GERD (gastroesophageal reflux disease) Surgical History History of esophagogastroduodenoscopy (EGD) Hx of section History of endometrial ablation History of tubal ligation History of foot surgery Hx of colonoscopy with polypectomy Hx of cholecystectomy History of appendectomy Family History Father Family history of Alzheimer's disease History of dementia Mother Hx of type 2 diabetes mellitus Social History Household Members: Spouse and Family Housing: House Alcohol intake: current Alcohol intake frequency: a few times a month Patient Tobacco Use Status: Former Tobacco user Substance Use Type: Marijuana service: No Current occupational status: unemployed Sexual orientation: Straight/Heterosexual Gender identity: Female Female Reproductive History Menstrual Age of Menarche: 12 Review of Systems Const Denies fatigue, Denies fever(s), Reports malaise, Denies night sweats, Denies poor appetite and Denies weight loss ENT Reports Normal hearing present, Denies dental pain, Denies dysphagia, Reports dizziness, Denies hearing loss, Denies mouth pain, Denies odynophagia, Denies throat swelling, Denies tongue swelling and Reports other (Dentition adequate) Card Reports lightheadedness Resp Reports no additional complaints GI Details: Denies abdominal pain, Denies melena, Reports bloating, Denies hematochezia, Denies constipation, Denies GI cramping, Denies dysphagia, Denies excessive flatus, Reports early satiety, Denies heartburn, Denies diarrhea, Reports nausea, Denies odynophagia, Denies vomiting and Denies hematemesis Skin/Breast Denies pruritus, Denies lesions, Denies rash and Denies jaundice Neuro Reports Normal hearing present, Denies Abnormal speech present and Reports dizziness Endo Denies fatigue Aller/Immun Denies throat swelling and Denies tongue swelling Physical Exam Vital Signs: Last Vital Signs Pulse 84 07/14/24 14:12 BP 121/78 07/14/24 14:12 BMI result Body Mass Index 39.4 Const General: cooperative, no acute distress, well developed and well groomed Nutritional Appearance: well nourished and obese morbidly obese Orientation/consciousness: oriented to person, oriented to place and oriented to time Limitations: No language barrier HEENT Head: Yes normocephalic and Yes atraumatic Eyes General: appearance normal, both eyes and all related structures Pupils: Equal, round and reactive pupils present Neck Neck: Yes normal visual inspection and Yes no lymphadenopathy Thyroid: Thyroid normal Resp Effort & Inspection: normal respiratory effort and able to speak in complete sentences Auscultation: clear to auscultation bilaterally Cardio Rate: regular rate Rhythm: regular rhythm Heart sounds: Normal, physiologic split S2 sound present Peripheral pulses: radial pulses present and posterior tibial pulses present GI Inspection: No distended, Yes Abdominal panniculus present and Yes obesity Palpation (GI): Soft to palpation, nontender, no guarding, not rigid and No hepatosplenomegaly present Percussion: Yes normal to percussion Auscultation: normal bowel sounds Rectal Exam - Female: deferred Skin General skin exam: no rashes or lesions noted, turgor normal, skin not dry, no jaundice, No spider nevi and no striae Rashes: no rashes Nails: normal Neuro General: oriented to person, oriented to place and oriented to time Cranial nerves: Yes Equal, round and reactive pupils present and Yes Normal hearing present Speech: No Abnormal speech present Extrem General: Yes normal to inspection, No clubbing, No cyanosis and No edema Psych Appearance: grossly normal and well kempt Mental Status: mental status grossly normal Speech and movement: Normal speech and movement present Affect: normal affect Attitude: cooperative Thought process: Normal thought process present and not confabulating Thought content: Normal thought content present Insight: Limited insight present (Psych) Judgement: Limited judgement present (Psych) Assessment & Plan Assessment & Plan (1) Small bowel motility disorder: Code(s): K59.9 - Functional intestinal disorder, unspecified Category: Medical (2) 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: Comment: DISCOVERED ON 2021 SCOPE REPEAT IN 2 YEARS TO ASSESS FOR HEALING Code(s): K22.70 - Gibson's esophagus without dysplasia Category: Medical (3) Erosive esophagitis: Code(s): K22.10 - Ulcer of esophagus without bleeding Category: Medical (4) GERD (gastroesophageal reflux disease): Code(s): K21.9 - Gastro-esophageal reflux disease without esophagitis Category: Medical (5) Irritable bowel syndrome with constipation: Code(s): K58.1 - Irritable bowel syndrome with constipation Category: Medical (6) Small bowel obstruction due to adhesions: Code(s): K56.50 - Intestinal adhesions [bands], unspecified as to partial versus complete obstruction Category: Medical Plan She is doing better in terms of fecal incontinence with the decreased dose of Linzess. We will continue her on the 145 micro g dose. However, her lack of appetite and nausea seems to be relatively unchanged. The nausea comes and goes. She admits she has trouble adhering to the 4 times a day Reglan dosing, this is common it is not an easy dosing schedule. She has been having some recent trouble with balance and just being sort of ?off.? She recently changed her shoes to try to gain better balance but I guess her feet have some swelling issues. I have asked her to try to keep a diary for the next 8 weeks to see if taking the metoclopramide as scheduled times, as best she can, impacts her nausea and how it impacts both her appetite and her nausea. She did not understand that she can and in fact should take this medicine even if she has not eaten. I also want her to write down how she is feeling in terms of balance so that we can try to decipher if the medications have anything to do with this problem that seems to have developed suddenly over the past 2 weeks. She denies any dizziness, hearing problems or ear fullness, and I did a quick neuro exam that does not seem to show any compromise in that area. She also had a normal echocardiogram. Return office visit in 8 weeks I performed a rectal exam for perceived lump. 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
[2024-07-14 14:12] VITALS: BP 121/78; PULSE 84; BMI 39.4
== END 2024-07-14 15:27 | disposition home or self-care (01) ==
PROVIDERS: PCP Internal Medicine; Visit Provider Nurse Practitioner
DX: K59.9 Functional intestinal disorder, unspecified (principal); K22.70 Barrett's esophagus without dysplasia; K21.9 Gastro-esophageal reflux disease without esophagitis; K58.1 Irritable bowel syndrome with constipation; K56.50 Intestinal adhesions [bands], unspecified as to partial versus complete obstruction
CPT/HCPCS: 99213

== ENCOUNTER → 2024-07-14 14:08 | Outpatient (BNVA) | payer OTHER, SELFPAY | PROVIDERS: PCP Internal Medicine; Visit Provider Nurse Practitioner | DX: K58.1 Irritable bowel syndrome with constipation (principal); K21.9 Gastro-esophageal reflux disease without esophagitis; K22.70 Barrett's esophagus without dysplasia; K59.9 Functional intestinal disorder, unspecified; K56.50 Intestinal adhesions [bands], unspecified as to partial versus complete obstruction | CPT/HCPCS: 99212 ==

== ENCOUNTER 2024-08-18 10:10 | Outpatient (REF) | payer OTHER, SELFPAY ==
[2024-08-18 10:20] LABS: MANUAL DIFF FLAG NO
[2024-08-18 11:01] LABS: Basophils Absolute Auto 0.1 X10*3/uL (0.0-0.2); Basophils Percent Auto 0.6 % (0-2); Eosinophils Absolute Auto 0.1 X10*3/uL (0.0-0.4); Eosinophils Percent Auto 1.3 % (0-4); Hematocrit 42.3 % (37.0-47.0); Hemoglobin 13.6 g/dl (12.0-16.0); Imm Gran Abs Auto 0.05 X10*3/uL (0.00-0.03); Imm Gran Pct Auto 0.5 % (0.0-0.4); Lymphocytes Absolute Auto 2.9 X10*3/uL (1.2-4.9); Lymphocytes Percent Auto 30.6 % (20-40); Mean Corpuscular HGB Conc 32.2 g/dl (31.0-35.0); Mean Corpuscular Hemoglobin 31.1 pg (27.0-33.0); Mean Corpuscular Volume 96.8 fL (80.0-98.0); Mean Platelet Volume 8.9 fL (9.4-12.3); Monocytes Absolute Auto 0.6 X10*3/uL (0.1-1.2); Monocytes Percent Auto 6.3 % (2-11); Neutrophils Absolute Auto 5.7 x10*3/uL (2.0-8.3); Neutrophils Percent Auto 60.7 % (45-73); Platelet Count 289 X10*3/uL (160-400); Red Blood Count 4.37 X10*6/uL (4.20-5.50); White Blood Count 9.4 X10*3/uL (4.8-10.8)
[2024-08-18 11:29] LABS: Alanine Aminotransferase 20 U/L (0-31); Alkaline Phosphatase 82 U/L (39-117); Anion Gap 13 (12-20); Aspartate Amino Transferase 17 U/L (5-31); Bilirubin Total 0.6 mg/dL (0.0-1.0); Blood Urea Nitrogen 15 mg/dL (9-16); Calcium 9.4 mg/dL (8.4-10.2); Carbon Dioxide 24 mmol/L (22-29); Chloride 108 mmol/L (96-108); Cholesterol 262 mg/dL (<200); Estimated Glomerular Filt Rate > 60; Glucose Fasting 102 mg/dL (60-99); HDL Cholesterol 40 mg/dL (>40); LDL Cholesterol Calculated 176 mg/dL (<100); Potassium 4.2 mmol/L (3.3-5.1); Sodium 141 mmol/L (135-145); Total Protein 7.1 g/dL (6.5-8.0); Triglycerides 232 mg/dL (<150)
[2024-08-18 11:51] LABS: ~HepC Num1 0.21 S/CO (0.00-0.79); ~Hepatitis B Surface Antibody NONREACTIVE (Nonreactive); ~Hepatitis C Antibody Nonreactive (Nonreactive)
== END 2024-08-18 10:11 | disposition home or self-care (01) ==
LOC: HO.LAB 10:10
PROVIDERS: PCP Internal Medicine; Visit Provider Internal Medicine
DX: E78.00 Pure hypercholesterolemia, unspecified (principal)
CPT/HCPCS: 36415; 80053; 80061; 85025; 86706; 86803

== ENCOUNTER 2024-09-21 15:39 | Outpatient (AMB) | payer OTHER, SELFPAY ==
--- NOTE | 2024-09-21 15:40 | MHC.OFFVIS ---
Vital Signs 09/21/24 15:42 Height 5 ft 2 in Weight 207 lb BMI 37.9 Blood Pressure Location Lt brachial Position Sitting Intake Visit Reasons: follow up Intake Note: Patient follow up of Gibson's esophagus. CC: Patient states that she stopped her medications for a month because she lost her pill's box, but she is now back on them and is doing well. 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: Comment: DISCOVERED ON 2021 SCOPE REPEAT IN 2 YEARS TO ASSESS FOR HEALING Code(s): K22.70 - Gibson's esophagus without dysplasia Category: Medical (3) Erosive esophagitis: Code(s): K22.10 - Ulcer of esophagus without bleeding Category: Medical (4) GERD (gastroesophageal reflux disease): Code(s): K21.9 - Gastro-esophageal reflux disease without esophagitis Category: Medical (5) Irritable bowel syndrome with constipation: Code(s): K58.1 - Irritable bowel syndrome with constipation Category: Medical (6) Small bowel obstruction due to adhesions: Code(s): K56.50 - Intestinal adhesions [bands], unspecified as to partial versus complete obstruction Category: Medical Plan She is doing better in terms of fecal incontinence with the decreased dose of Linzess. We will continue her on the 145 micro g dose. However, her lack of appetite and nausea seems to be relatively unchanged. The nausea comes and goes. She admits she has trouble adhering to the 4 times a day Reglan dosing, this is common it is not an easy dosing schedule. She has been having some recent trouble with balance and just being sort of ?off.? She recently changed her shoes to try to gain better balance but I guess her feet have some swelling issues. I have asked her to try to keep a diary for the next 8 weeks to see if taking the metoclopramide as scheduled times, as best she can, impacts her nausea and how it impacts both her appetite and her nausea. She did not understand that she can and in fact should take this medicine even if she has not eaten. I also want her to write down how she is feeling in terms of balance so that we can try to decipher if the medications have anything to do with this problem that seems to have developed suddenly over the past 2 weeks. She denies any dizziness, hearing problems or ear fullness, and I did a quick neuro exam that does not seem to show any compromise in that area. She also had a normal echocardiogram. Return office visit in 8 weeks I performed a rectal exam for perceived lump. TODAY'S VISIT She stopped all her medications for a month but then she found that she became very constipated. She also had very severe heartburn. She restarted her omeprazole 40 mg twice a day and her Linzess 145 micro g and now she is doing well. She still has not taken the metoclopramide and it seems that her nausea and her appetite have improved so we will keep this out with a mix for now. Today she also requests a refill on her senna but does not want to refill on omeprazole or simethicone because she seems to have a plethora of this on hand. Return office visit in 6 months [facility] Medical History Trochanteric bursitis of left hip Atelectasis Bone spur of posterior portion of right calcaneus Sebaceous cyst of labia Well woman exam Diarrhea Arthralgia of hip, left Campylobacter diarrhea Epigastric pain Spasm of muscle of lower back Well woman exam Acute left-sided back pain with sciatica ASCUS of cervix with negative high risk HPV Elevated cholesterol History of depression ADD (attention deficit disorder) PTSD (post-traumatic stress disorder) History of methicillin resistant staphylococcus aureus (MRSA) Helicobacter pylori (H. pylori) infection Chronic low back pain Hx of cardiac murmur Asthma Tubular adenoma of colon Irritable bowel syndrome with constipation GERD (gastroesophageal reflux disease) Surgical History History of esophagogastroduodenoscopy (EGD) Hx of section History of endometrial ablation History of tubal ligation History of foot surgery Hx of colonoscopy with polypectomy Hx of cholecystectomy History of appendectomy Family History Father Family history of Alzheimer's disease History of dementia Mother Hx of type 2 diabetes mellitus Social History Household Members: Spouse and Family Housing: House Alcohol intake: current Alcohol intake frequency: a few times a month Patient Tobacco Use Status: Former Tobacco user Substance Use Type: Marijuana service: No Current occupational status: unemployed Sexual orientation: Straight/Heterosexual Gender identity: Female Female Reproductive History Menstrual Age of Menarche: 12 Review of Systems Const Denies fatigue, Denies fever(s), Denies night sweats, Denies poor appetite and Reports weight loss (Intentional dieting and walking) ENT Reports Normal hearing present, Denies dental pain, Denies dysphagia, Denies hearing loss, Denies mouth pain, Denies odynophagia, Denies throat swelling, Denies tongue swelling and Reports other (Dentition adequate) Card Reports no additional complaints Resp Reports no additional complaints GI Details: Denies abdominal pain, Denies melena, Denies bloating, Denies hematochezia, Reports constipation, Denies GI cramping, Denies dysphagia, Denies excessive flatus, Denies early satiety, Reports heartburn, Denies diarrhea, Denies nausea, Denies odynophagia, Denies vomiting and Denies hematemesis Skin/Breast Denies pruritus, Denies lesions, Denies rash and Denies jaundice Neuro Reports Normal hearing present and Denies Abnormal speech present Endo Denies fatigue Aller/Immun Denies throat swelling and Denies tongue swelling Physical Exam Const General: cooperative, no acute distress, well developed and well groomed Nutritional Appearance: well nourished and obese Orientation/consciousness: oriented to person, oriented to place and oriented to time Limitations: No language barrier HEENT Head: Yes normocephalic and Yes atraumatic Eyes General: appearance normal, both eyes and all related structures Pupils: Equal, round and reactive pupils present Neck Neck: Yes normal visual inspection and Yes no lymphadenopathy Thyroid: Thyroid normal Resp Effort & Inspection: normal respiratory effort and able to speak in complete sentences Auscultation: clear to auscultation bilaterally Cardio Rate: regular rate Rhythm: regular rhythm Heart sounds: Normal, physiologic split S2 sound present Peripheral pulses: radial pulses present and posterior tibial pulses present GI Inspection: No distended, No Abdominal panniculus present and Yes obesity Palpation (GI): Soft to palpation, nontender, no guarding, not rigid and No hepatosplenomegaly present Percussion: Yes normal to percussion Auscultation: normal bowel sounds Rectal Exam - Female: deferred Skin General skin exam: no rashes or lesions noted, turgor normal, skin not dry, no jaundice, No spider nevi and no striae Rashes: no rashes Nails: normal Neuro General: oriented to person, oriented to place and oriented to time Cranial nerves: Yes Equal, round and reactive pupils present and Yes Normal hearing present Speech: No Abnormal speech present Extrem General: Yes normal to inspection, No clubbing, No cyanosis and No edema Psych Appearance: grossly normal and well kempt Mental Status: mental status grossly normal Speech and movement: Normal speech and movement present Affect: normal affect Attitude: cooperative Thought process: Normal thought process present and not confabulating Thought content: Normal thought content present Insight: Fair insight present (Psych) and Limited insight present (Psych) Judgement: Fair judgement present (Psych) and Limited judgement present (Psych) Assessment & Plan Assessment & Plan (1) Small bowel motility disorder: Code(s): K59.9 - Functional intestinal disorder, unspecified Category: Medical (2) Early satiety: Code(s): R68.81 - Early satiety Category: Medical (3) 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 She also had very severe heartburn. She restarted her omeprazole 40 mg twice a day and her Linzess 145 micro g and now she is doing well. She still has not taken the metoclopramide and it seems that her nausea and her appetite have improved so we will keep this out with a mix for now. Today she also requests a refill on her senna but does not want to refill on omeprazole or simethicone because she seems to have a plethora of this on hand. 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
[2024-09-21 15:42] VITALS: BMI 37.9
== END 2024-09-21 16:08 | disposition home or self-care (01) ==
PROVIDERS: PCP Internal Medicine; Visit Provider Nurse Practitioner
DX: K59.9 Functional intestinal disorder, unspecified (principal); R68.81 Early satiety; K22.70 Barrett's esophagus without dysplasia; K21.9 Gastro-esophageal reflux disease without esophagitis; K58.1 Irritable bowel syndrome with constipation
CPT/HCPCS: 99213

== ENCOUNTER → 2024-09-21 15:39 | Outpatient (BNVA) | payer OTHER, SELFPAY | PROVIDERS: PCP Internal Medicine; Visit Provider Nurse Practitioner | DX: K22.70 Barrett's esophagus without dysplasia (principal); K59.9 Functional intestinal disorder, unspecified; K21.9 Gastro-esophageal reflux disease without esophagitis; K58.1 Irritable bowel syndrome with constipation; R68.81 Early satiety | CPT/HCPCS: 99212 ==

== ENCOUNTER 2024-11-05 13:09 | Emergency (ER) | payer OTHER, SELFPAY ==
--- NOTE | ~2024-11-05 | XR_ITS ---
CLINICAL HISTORY: dizziness 1 view chest x-ray. Comparison: 07/21/2022 10:05 AM EDT: CR Findings: The lungs are adequately expanded. No focal consolidation. No effusion or pneumothorax. Cardiac and mediastinal contours are within normal limits. No acute osseous abnormality Impression: No acute process. This document has been electronically signed by: Kel Winters MD on 11/05/2024 14:41:39
--- NOTE | ~2024-11-05 | CT_ITS ---
CLINICAL HISTORY: dizziness, unsteady gait CT HEAD WITHOUT CONTRAST Comparison: None Findings: No acute intracranial hemorrhage, extra-axial fluid collection, hydrocephalus or midline shift. No significant atrophy-like change No significant white matter disease. There is no sinus or mastoid fluid. Visualized orbits: No acute abnormalities. There is no acute fracture. IMPRESSION: 1. No acute intracranial process. This document has been electronically signed by: Lynda Hernandez DO on 11/05/2024 15:45:16
[2024-11-05 13:15] VITALS: BP 148/70; PULSE 91; RESP 18; TEMP 36.8; O2SAT 95; BMI 37.1
--- NOTE | 2024-11-05 13:17 | ED.DIZZY ---
HPI - Dizziness General Chief Complaint: Dizziness Stated Complaint: dizziness Time Seen by Provider: 11/05/24 21:32 Source: patient Mode of arrival: EMS Limitations: no limitations History of Present Illness ED Provider: HPI Narrative: Patient otherwise healthy comes here for sudden onset of dizziness/vertiginous feeling started on 11/01 patient is off balance dizziness gets worse on turning the head to the left patient. Patient denies any headache any other focal weakness Related Data Home Medications ?Medication ?Instructions ?Recorded ?Confirmed clonazepam 0.5 mg tablet 0.5 mg PO BID PRN Anxiety 10/02/20 05/24/24 zolpidem 10 mg tablet 10 mg PO BEDTIME Sleep 11/01/20 05/24/24 metronidazole 0.75 % topical cream 1 appl topical BID PRN rosacea 10/05/22 05/24/24 azelaic acid 15 % topical gel 1 appl topical DAILY PRN rosacea 10/27/23 05/24/24 cetirizine 10 mg tablet 10 mg PO DAILY PRN Allergy Symptoms 10/27/23 05/24/24 dextroamphetamine-amphetamine 20 1 tab PO BID@0900,1400 10/27/23 05/24/24 mg tablet albuterol sulfate 90 mcg/actuation inhalation 02/02/24 05/24/24 aerosol inhaler (Ventolin HFA) Previous Rx's ?Medication ?Instructions ?Recorded cholecalciferol (vitamin D3) 125 125 mcg PO DAILY #90 caps 07/21/22 mcg (5,000 unit) capsule mecobalamin (vitamin B12) 1,000 1,000 mcg sublingual DAILY #30 tabs 07/21/22 mcg disintegrating tablet,sublingual omeprazole 40 mg capsule,delayed 40 mg PO BID #180 caps 02/04/24 release clotrimazole-betamethasone 1 1 appl topical BID 5 days #45 grams 03/13/24 %-0.05 % topical cream simethicone 125 mg chewable tablet 125 mg PO TID PRN abdominal 04/07/24 (Gas Relief (simethicone)) distention 30 days #90 tabs metoclopramide HCl 5 mg tablet 5 mg PO QIDACHS #120 tabs 06/06/24 (Reglan) linaclotide 145 mcg capsule 145 mcg PO QAM #30 caps 09/21/24 (Linzess) sennosides 8.6 mg tablet (senna) 17.2 mg (2 x 8.6 mg) PO BID for 09/21/24 constipation #360 tabs tizanidine 4 mg tablet 4 mg PO BID PRN for muscle spasm 10/24/24 30 days #60 tabs Allergies Allergy/AdvReac Type Severity Reaction Status Date / Time Seasonal Allergies Allergy Unknown Unknown Verified 11/05/24 13:18 No Known Drug Allergies Allergy Unknown Verified 11/05/24 13:18 Review of Systems Review of Systems: Yes all other systems are reviewed and are negative [facility] Past Medical History Medical History Trochanteric bursitis of left hip Atelectasis Bone spur of posterior portion of right calcaneus Sebaceous cyst of labia Well woman exam Diarrhea Arthralgia of hip, left Campylobacter diarrhea Epigastric pain Spasm of muscle of lower back Well woman exam Acute left-sided back pain with sciatica ASCUS of cervix with negative high risk HPV Elevated cholesterol History of depression ADD (attention deficit disorder) PTSD (post-traumatic stress disorder) History of methicillin resistant staphylococcus aureus (MRSA) Helicobacter pylori (H. pylori) infection Chronic low back pain Hx of cardiac murmur Asthma Tubular adenoma of colon Irritable bowel syndrome with constipation GERD (gastroesophageal reflux disease) Surgical History History of esophagogastroduodenoscopy (EGD) Hx of section History of endometrial ablation History of tubal ligation History of foot surgery Hx of colonoscopy with polypectomy Hx of cholecystectomy History of appendectomy Family History Family History Father Family history of Alzheimer's disease History of dementia Mother Hx of type 2 diabetes mellitus Social History Social History Household Members: Spouse and Family Housing: House Alcohol intake: current Alcohol intake frequency: a few times a month Patient Tobacco Use Status: Former Tobacco user Smoked in Last 30 Days: No Use of substances other than those prescribed or required for medical reasons: No Substance Use Type: Marijuana Advance Directives: No Advance Directives Information Provided: No Do you have a plan to hurt others: No Plan Patient : No service: No Current occupational status: unemployed Sexual orientation: Straight/Heterosexual Gender identity: Female Physical Exam Vital Signs: Vital Signs: Last Vital Signs Temp 97.6 F 11/06/24 00:21 Pulse 75 11/06/24 00:21 Resp 16 11/06/24 00:21 BP 172/80 H 11/06/24 00:21 Pulse Ox 98 11/06/24 00:21 O2 Del Method Room Air 11/06/24 00:21 BMI result Body Mass Index 37.1 Appearance: Alert. Oriented X3. No acute distress. Eyes: PERRLA, No Nystagmus ENT: Pharynx normal. Oral Mucosa moist Neck: Normal inspection. Neck supple. CVS: Normal heart rate and rhythm. Pulses normal. Respiratory: No respiratory distress. Equal air entry bilateral, no wheezing/rales/rhonchi Abdomen: Soft and nontender. Bowel sounds are present, no mass palpable, no CVA tenderness Skin: Skin warm and dry. Normal skin color. Normal skin turgor. Extremities: No lower extremity edema. No calf tenderness Neuro: Oriented X 3. No motor deficit. No sensory deficit.No cerebellar signs , cranial nerves II-XII intact Course Course Course Narrative: This is a Rapid Medical Exam performed in triage by Latesha Domingo PA-C. Full HPI, ROS and PE to be performed by primary ED provider. 54yo F w/PMHx GERD, asthma, IBS presenting to the ED c/o room spinning x5 days w/assoc N/V. PCP Rx Meclizine on w/o relief. Admits sx worse w/position changes, denies weakness, visual loss/changes, CP, SOB PE: +Unsteady gait, no other focal deficits. in wheelchair Plan: EKG, labs, UA, Head CT Medications Administered Discontinued Medications Generic Name Dose Route Start Last Admin Trade Name Freq PRN Reason Stop Dose Admin Lorazepam 2 mg 11/05/24 22:17 11/05/24 22:57 Lorazepam 1 Mg Tablet PO 11/05/24 22:18 2 mg ONCE ONE Administration Meclizine HCl 50 mg 11/05/24 22:17 11/05/24 22:56 Meclizine Hcl 25 Mg Tablet PO 11/05/24 22:18 50 mg ONCE ONE Administration Medical Decision Making Medical Decision Making [facility] Narrative: Patient with benign positional vertigo feeling much better after lorazepam and meclizine able to ambulate without falling and losing balance Differential Diagnosis Differential Diagnoses: The differential diagnosis associated with the presentation includes Benign positional vertigo/stroke/posterior circulation stroke Lab Data [facility] Lab Attestation statement: I reviewed the patient's lab results. 11/05/24 13:45 11/05/24 13:45 Labs: Lab Results 11/05/24 Range/Units 13:45 WBC 7.8 (4.8-10.8) X10*3/uL RBC 4.69 (4.20-5.50) X10*6/uL Hgb 15.0 (12.0-16.0) g/dl Hct 44.3 (37.0-47.0) % MCV 94.5 (80.0-98.0) fL MCH 32.0 (27.0-33.0) pg MCHC 33.9 (31.0-35.0) g/dl RDW 11.9 (11.0-16.0) % Plt Count 261 (160-400) X10*3/uL MPV 9.4 (9.4-12.3) fL Immature Gran % (Auto) 0.1 (0.0-0.4) % Neut % (Auto) 53.6 (45-73) % Lymph % (Auto) 39.5 (20-40) % [place] % (Auto) 5.0 (2-11) % Eos % (Auto) 1.2 (0-4) % Baso % (Auto) 0.6 (0-2) % Lymph # (Auto) 3.1 (1.2-4.9) X10*3/uL [place] # (Auto) 0.4 (0.1-1.2) X10*3/uL Eos # (Auto) 0.1 (0.0-0.4) X10*3/uL Baso # (Auto) 0.1 (0.0-0.2) X10*3/uL Abs Immat Gran (auto) 0.01 (0.00-0.03) X10*3/uL Absolute Neuts (auto) 4.2 (2.0-8.3) x10*3/uL Absolute Nucleated RBC 0.000 (0.0-0.012) X10*3/uL Nucleated RBC % (auto) 0.0 (0.0-0.2) /100WBC PT 12.2 (10.9-12.4) SEC INR 1.0 (0.9-1.1) Sodium 142 (135-145) mmol/L Potassium 4.0 (3.3-5.1) mmol/L Chloride 111 H (96-108) mmol/L Carbon Dioxide 22 (22-29) mmol/L Anion Gap 13 (12-20) BUN 13 (9-16) mg/dL Creatinine 0.82 (0.5-1.4) mg/dL Estim Creat Clear Calc 82.7 Estimated GFR > 60 Random Glucose 92 (60-115) mg/dL Calcium 9.4 (8.4-10.2) mg/dL Magnesium 2.0 (1.6-2.6) mg/dL Total Bilirubin 0.4 (0.0-1.0) mg/dL Direct Bilirubin 0.1 (0.0-0.5) mg/dL AST 17 (5-31) U/L ALT 14 (0-31) U/L Alkaline Phosphatase 84 (39-117) U/L Troponin I High Sens < 2.7 (<3.5-17.0) ng/L Total Protein 7.6 (6.5-8.0) g/dL Albumin 4.1 (3.5-5.0) g/dL Urine Color Yellow Urine Appearance Clear Urine pH 6.0 (5.0-9.0) Ur Specific [place] 1.025 (1.005-1.025) Urine Protein Negative (Neg-Trace) mg/dL Urine Glucose (UA) Negative (Negative) mg/dL Urine Ketones Trace (Negative) mg/dL Urine Blood Negative (Negative) Urine Nitrite Negative (Negative) Ur Leukocyte Esterase Negative (Negative) Influenza Type A (PCR) NEGATIVE (Negative) Influenza Type B (PCR) NEGATIVE (Negative) RSV RNA Qual (PCR) NEGATIVE (Negative) SARS-CoV-2 RNA (RT-PCR) NEGATIVE (Negative) Independent Interpretation I performed an independent interpretation of an: EKG and Plain X-Ray Interpretation: Normal sinus rhythm heart rate 68 beats per minute normal interval normal axis no acute STT wave changes no acute ischemia Radiology Impression Discussion of test interpretation with radiology: I have reviewed the radiologist's reading. Radiologist Impression: Head CT is negative, chest x-ray is normal Discharge Plan Discharge Clinical Impression: Benign paroxysmal positional vertigo Patient Disposition: Home, Self-Care Instructions: Benign Paroxysmal Positional Vertigo (ED) Additional Instructions: Care and cautions as advised Take meclizine 12.5 mg 2 tablets every 8 hours as needed Follow with your PCP Prescriptions: No Action cholecalciferol (vitamin D3) 125 mcg (5,000 unit) capsule 125 mcg PO DAILY Qty: 90 1RF mecobalamin (vitamin B12) 1,000 mcg tablet,disintegrating 1,000 mcg sublingual DAILY Qty: 30 1RF Rx Instructions: place tablet under tongue and allow to dissolve for at least30 secs before swallowing omeprazole 40 mg capsule,delayed release(DR/EC) 40 mg PO BID Qty: 180 2RF tizanidine 4 mg tablet 4 mg PO BID PRN (Reason: for muscle spasm) 30 Days Qty: 60 5RF zolpidem 10 mg tablet 10 mg PO BEDTIME clonazepam 0.5 mg tablet 0.5 mg PO BID PRN (Reason: Anxiety) metronidazole 0.75 % cream 1 appl topical BID PRN (Reason: rosacea) dextroamphetamine-amphetamine 20 mg tablet 1 tab PO BID@0900,1400 cetirizine 10 mg tablet 10 mg PO DAILY PRN (Reason: Allergy Symptoms) azelaic acid 15 % gel 1 appl topical DAILY PRN (Reason: rosacea) albuterol sulfate [Ventolin HFA] 90 mcg/actuation HFA aerosol inhaler inhalation simethicone [Gas Relief (simethicone)] 125 mg tablet,chewable 125 mg PO TID MDD 3 PRN (Reason: abdominal distention) 30 Days Qty: 90 3RF metoclopramide HCl [Reglan] 5 mg tablet 5 mg PO QIDACHS Qty: 120 3RF clotrimazole-betamethasone 1-0.05 % cream 1 appl topical BID 5 Days Qty: 45 0RF Linzess 145 mcg capsule 145 mcg PO QAM Qty: 30 6RF sennosides [senna] 8.6 mg tablet 17.2 mg PO BID Qty: 360 1RF Interventions: ED Discharge Assessment Last Done: 11/06/24 00:21 Discharge Date/Time: 11/06/24 00:22 Print Language: [place]
--- NOTE | 2024-11-05 13:21 | ECG_ITS ---
Test Reason : DIZZINESS Blood Pressure : */* mmHG Vent. Rate : 68 BPM Atrial Rate : 68 BPM P-R Int : 122 ms QRS Dur : 78 ms QT Int : 398 ms P-R-T Axes : 40 43 23 degrees QTcB Int : 423 ms Normal sinus rhythm with sinus arrhythmia Normal ECG When compared with ECG of 21-Jul-2022 09:41, No significant change was found Referred By: Latesha Domingo Electronically Signed By: HOSEA DEUTSCH
[2024-11-05 14:05] LABS: MANUAL DIFF FLAG NO
[2024-11-05 14:07] LABS: Basophils Absolute Auto 0.1 X10*3/uL (0.0-0.2); Basophils Percent Auto 0.6 % (0-2); Eosinophils Absolute Auto 0.1 X10*3/uL (0.0-0.4); Eosinophils Percent Auto 1.2 % (0-4); Hematocrit 44.3 % (37.0-47.0); Imm Gran Abs Auto 0.01 X10*3/uL (0.00-0.03); Imm Gran Pct Auto 0.1 % (0.0-0.4); Lymphocytes Absolute Auto 3.1 X10*3/uL (1.2-4.9); Lymphocytes Percent Auto 39.5 % (20-40); Mean Corpuscular HGB Conc 33.9 g/dl (31.0-35.0); Mean Corpuscular Volume 94.5 fL (80.0-98.0); Mean Platelet Volume 9.4 fL (9.4-12.3); Monocytes Absolute Auto 0.4 X10*3/uL (0.1-1.2); Neutrophils Absolute Auto 4.2 x10*3/uL (2.0-8.3); Neutrophils Percent Auto 53.6 % (45-73); Platelet Count 261 X10*3/uL (160-400); Red Blood Count 4.69 X10*6/uL (4.20-5.50); Red Cell Distribution Width 11.9 % (11.0-16.0); White Blood Count 7.8 X10*3/uL (4.8-10.8)
[2024-11-05 14:11] LABS: Appearance Urine Clear; Color Urine Yellow; Glucose Urine UA Negative (Negative); Leukocyte Esterase Urine Negative (Negative); Nitrite Urine Negative (Negative); Specific Gravity - Urine 1.025 (1.005-1.025); Urine Blood Negative (Negative); Urine Ketones Trace mg/dL (Negative); Urine Protein Negative (Neg-Trace)
[2024-11-05 14:19] LABS: Prothrombin Time 12.2 SEC (10.9-12.4)
[2024-11-05 14:31] LABS: Alanine Aminotransferase 14 U/L (0-31); Albumin Level 4.1 g/dL (3.5-5.0); Anion Gap 13 (12-20); Aspartate Amino Transferase 17 U/L (5-31); Bilirubin Direct 0.1 mg/dL (0.0-0.5); Bilirubin Total 0.4 mg/dL (0.0-1.0); Blood Urea Nitrogen 13 mg/dL (9-16); Calcium 9.4 mg/dL (8.4-10.2); Carbon Dioxide 22 mmol/L (22-29); Chloride 111 mmol/L (96-108); Creatinine Clr Calc Pharmacy 82.7; Estimated Glomerular Filt Rate > 60; Glucose Random 92 mg/dL (60-115); Sodium 142 mmol/L (135-145); Total Protein 7.6 g/dL (6.5-8.0)
[2024-11-05 14:37] LABS: Troponin-I High Sensitivity < 2.7 ng/L (<3.5-17.0)
[2024-11-05 14:45] LABS: Influenza A PCR NEGATIVE (Negative); Influenza B PCR NEGATIVE (Negative); Resp Syncy Virus RNA Qual PCR NEGATIVE (Negative); SARS COV2 PCR INHOUSE NEGATIVE (Negative)
[2024-11-05 15:29] LABS: Alkaline Phosphatase 84 U/L (39-117)
[2024-11-05 21:18] VITALS: BP 145/93; PULSE 80; RESP 20; TEMP 36.6; O2SAT 97
[2024-11-05 21:19] VITALS: BP 145/93; PULSE 79
[2024-11-05 21:22] VITALS: BP 146/92; PULSE 89
[2024-11-05 21:24] VITALS: BP 149/91; PULSE 104
--- OUTSIDE RECORDS SUMMARY | 2024-11-05 21:39 | XMS_ITS | Clinical Summary ---
Author Organization [facility] Address [address] [place] [address] Phone Care Team Providers Care Qm Consultant Name Role Phone Ravinder Lombardo MD Primary Care Provider [phone] Allergies No known active allergies Medications zolpidem (AMBIEN) 10 MG tablet TAKE 1 TABLET BY MOUTH EVERY DAY AT BEDTIME DIRECTED 04/26/2021 Active omeprazole (PriLOSEC) [address] capsule Take 40 mg by mouth 05/21/2021 Active gabapentin (NEURONTIN) 300 MG capsule Take 300 mg by mouth 3 times a day 04/26/2021 Active clonazePAM (KlonoPIN) 0.5 MG tablet Take 0.5 mg by mouth 05/27/2021 Active amphetamine-dex troamphetamine (ADDERALL) 20 MG tablet Take 1 tablet by mouth 05/29/2021 Active Active Problems Problem Noted Date Diagnosed Date Polyuria 06/10/2021 Edema 06/10/2021 Family History Medical History Relation Comments Dementia Father Diabetes Mother Relation Status Comments Father Mother Social History Tobacco Use Types Packs/Day Years Used Date Smoking Tobacco: Former Smokeless Tobacco: Never Alcohol Use Standard Drinks/Week Comments Yes 0 (1 standard drink = 0.6 oz pur e alcohol) occasional social drink Comments Unknown Sex and Gender Information Value Date Recorded Sex Assigned at Not on file Legal Sex Female 9:50 AM EDT Gender Identity Not on file Sexual Orientation Not on file Last Filed Vital Signs Vital Sign Reading Time Taken Comments Blood Pressure 132/60 06/10/2021 2:54 PM EDT Pulse 63 06/10/2021 2:54 PM EDT Temperature - - Respiratory Rate - - Oxygen Saturation 99% 06/10/2021 2:54 PM EDT Inhaled Oxygen Concentration - - Weight 87.1 kg (192 lb) 06/10/2021 2:54 PM EDT Height 157.5 cm (5' 2 ) 06/10/2021 2:54 PM EDT Body Mass Index 35.12 06/10/2021 2:54 PM EDT Plan of Treatment Health Maintenance Due Date Last Done Comments Breast Cancer Screening 1970 Hepatitis B Vaccine (1 of 3 - 19+ 3-dose series) 1989 Colorectal Cancer Screening: Annual FOBT 2019 Colorectal Cancer Screening: Colonoscopy 2019 Colorectal Cancer Screening: Sigmoidoscopy 2019 Influenza Vaccine (#1) 2024 Pneumococcal Vaccine: Pediat rics (0 to 5 Years) and At-Risk Patients (6 to 64 Years) Aged Out No longer eligible b ased on patient's age to complete this topic Insurance [place] [employer] [employer] Care Teams Qm Consultant Relationship Specialty Start Date End Date Ravinder Lombardo MD [id number] [place] PCP - General Internal Medicine 04/29/21
[2024-11-05] MEDS: Meclizine HCl 25 MG TABLET 50 MG PO (22:56)
[2024-11-05] MEDS: LORazepam 1 MG TABLET 2 MG PO (22:57)
[2024-11-05 23:36] VITALS: BP 172/80; PULSE 75; RESP 16; TEMP 36.4; O2SAT 98
--- NOTE | 2024-11-06 00:20 | PC.NURSE ---
pt ambulatory with steady gait after medication, pt denies dizziness at that time. dc instructions provided.
[2024-11-06 00:21] VITALS: BP 172/80; PULSE 75; RESP 16; TEMP 36.4; O2SAT 98
== END 2024-11-06 00:22 | disposition home or self-care (01) ==
PROVIDERS: Physician Assistant; Emergency Provider Internal Medicine; PCP Internal Medicine
DX: H81.13 Benign paroxysmal vertigo, bilateral (principal); I49.8 Other specified cardiac arrhythmias; R51.9 Headache, unspecified; R26.81 Unsteadiness on feet; Z79.899 Other long term (current) drug therapy; Z03.818 Encounter for observation for suspected exposure to other biological agents ruled out
CPT/HCPCS: 0241U; 70450; 71045; 80048; 80076; 81003; 83735; 84484; 85025; 85610; 93005; 99284; 99285

== ENCOUNTER → 2024-11-05 13:21 | Outpatient (BNV) | payer OTHER, SELFPAY | PROVIDERS: Emergency Provider Internal Medicine; PCP Internal Medicine; Visit Provider Internal Medicine | DX: I49.9 Cardiac arrhythmia, unspecified (principal) | CPT/HCPCS: 93010 ==

== ENCOUNTER → 2024-11-05 13:21 | Outpatient (BNV) | payer OTHER, SELFPAY | PROVIDERS: PCP Internal Medicine; Visit Provider Radiology Vascular & Interventional Radiology | DX: R42 Dizziness and giddiness (principal) | CPT/HCPCS: 70450; 71045 ==

== ENCOUNTER 2025-01-26 15:30 | Outpatient (AMB) | payer OTHER, SELFPAY ==
--- NOTE | 2025-01-26 12:58 | A.OFFPC_ITS ---
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: No Accompanied by: Self / Same As Patient Allergies Seasonal Allergies Allergy (Unknown, Verified 01/26/25 15:58) Unknown No Known Drug Allergies Allergy (Verified 01/26/25 15:58) Unknown Tobacco use date assessed: 01/26/25 Dental Screening Dental Screen Date: 01/26/25 Did you have a dental visit in the last 12 months?: Yes Did you have a dental problem in the last 6 months where you did not have access to dental care?: No Was dental information given to patient?: Patient has dentist HPI HPI Comments History of Present Illness Details 54-year-old female with history of anxie ty, ADD, insomnia, vitamin B12 deficiency, mild intermittent asthma presents to the office today for routine follow-up. She reports asthma is well-controlled with only occasional albuterol use. She follows with Dr. Epps at [facility]. She is taking both Ativan and clonazepam as advised by her psychiatrist as well as Adderall. She is currently taking 10 mg of Ambien for management of insomnia. We did discuss that recommended dose of Ambien for females as 5 mg. She is also using metronidazole gel for rosacea and has needed systemic antibiotics in the past. Her main concern today is vertigo that has been persisting for several months. She states that initially she had vertigo symptoms with associated nausea and vomiting as well as gait instability for 3 weeks straight. She states now it is more intermittent but is still quite bothersome. She states symptoms are worse with head movements and position changes. However, the other day, she had an episode where she reached above her head in her closet and almost fell over. She does state it is also worse when lying down. She has been using meclizine 12.5 mg without much effect. She denies any fevers, chills, hearing loss, tinnitus, headaches, vision changes, sinus pressure. She has not required the use of any assistive devices secondary to the vertigo. She is also concerned about her weight. She states that she has been in the weight management clinic and has also been to a state farm agent without much effect. She states she does eat healthy. She is inconsistent with meals. Occasionally eats breakfast, occasionally insulin, occasionally eats dinner. [facility] Medical History Vitamin B12 deficiency Trochanteric bursitis of left hip Atelectasis Bone spur of posterior portion of right calcaneus Sebaceous cyst of labia Well woman exam Diarrhea Arthralgia of hip, left Campylobacter diarrhea Epigastric pain Spasm of muscle of lower back Well woman exam Acute left-sided back pain with sciatica ASCUS of cervix with negative high risk HPV Elevated cholesterol History of depression ADD (attention deficit disorder) PTSD (post-traumatic stress disorder) History of methicillin resistant staphylococcus aureus (MRSA) Helicobacter pylori (H. pylori) infection Chronic low back pain Hx of cardiac murmur Asthma Tubular adenoma of colon Irritable bowel syndrome with constipation GERD (gastroesophageal reflux disease) Surgical History History of esophagogastroduodenoscopy (EGD) Hx of section History of endometrial ablation History of tubal ligation History of foot surgery Hx of colonoscopy with polypectomy (~11/18/21) Hx of cholecystectomy History of appendectomy Family History Father Family history of Alzheimer's disease History of dementia Mother Hx of type 2 diabetes mellitus Social History Household Members: Spouse and Family Housing: House Alcohol intake: current Alcohol intake frequency: a few times a month Patient Tobacco Use Status: Former Tobacco user Substance Use Type: Marijuana service: No Current occupational status: unemployed and disabled Sexual orientation: Straight/Heterosexual Gender identity: Female Cognitive needs: No Hearing needs: No Vision needs: Yes (Rx glasses) Female Reproductive History Menstrual Age of Menarche: 12 Questionnaire PHQ-9 Over the last 2 weeks, how often have you been bothered by any of the following problems? 1. Little interest or pleasure in doing things: not at all 2. Feeling down, depressed, or hopeless: not at all 3. Trouble falling or staying asleep, or sleeping too much: not at all 4. Feeling tired or having little energy: not at all 5. Poor appetite or overeating: not at all 6. Feeling bad about yourself - or that you are a failure or have let yourself or your family down: not at all 7. Trouble concentrating on things, such as reading the newspaper or watching television: not at all 8. Moving or speaking so slowly that other people could have noticed. Or the opposite - being so fidgety or restless that you have been moving around a lot more than usual: not at all 9. Thoughts that you would be better off or of hurting yourself in some way: not at all Total score: 0 Source: Developed by Drs. Efra Estrella, Sloane Jay, Phu Mckay and colleagues, with an educational simon from [employer]. Thrive Questionnaire Date Thrive assessed: 01/26/25 I am a: Patient What is your living situation today?: I have a steady place to live Within the past 12 months, did the food you bought not last and you didn't have the money to get more?: Never true Within the past 12 months, did you worry whether your food would run out before you got money to buy more?: Never true Do you have trouble paying for medicines?: No Do you have trouble getting transportation to medical appointments?: No Do you have trouble paying your heating and electricity bill?: No Do you have trouble taking care of your child, family member or friend?: No Do you have trouble with day-to-day activities such as bathing, preparing meals, shopping, managing finances, etc.?: No Are you currently unemployed and looking for a job?: No Please select the resources that you would like help with: None THRIVE Score: 0 AUDIT C Alcohol Use Questionnaire (AUDIT-C) 1. How often do you have a drink containing alcohol?: Monthly or less Total Score: 1 ALANA-7 AMB Questionnaire ALANA-7 Date ALANA - 7 assessed: 01/26/25 Feeling nervous, anxious, or on edge: 0 = Not at all Not being able to stop or control worryin = Not at all Worrying too much about different things: 0 = Not at all Trouble relaxin = Not at all Being so restless that it is hard to sit still: 0 = Not at all Becoming easily annoyed or irritable: 0 = Not at all Feeling afraid as if something awful might happen: 0 = Not at all Total ALANA-7 score (0-4 normal; 5-9 mild; 10-14 moderate; 15-21 severe): 0 Source: Developed by Drs. Efra Estrella, Sloane Jay, Phu Mckay and colleagues, with an educational simon from [employer]. Review of Systems Const All systems reviewed & are unremarkable except as noted in HPI and below Physical exam (Primary Care) Vital Signs: Last Vital Signs Temp 98.0 F 01/26/25 16:08 Pulse 70 01/26/25 16:08 Resp 16 01/26/25 16:08 BP 124/90 H 01/26/25 16:08 Pulse Ox 98 01/26/25 16:08 Oxygen Delivery Method Room Air 01/26/25 16:08 BMI result Body Mass Index 38.2 Tobacco/Smoking Status: Tobacco use Status Tobacco use date assessed 01/26/25 01/26/25 16:02 Patient Tobacco Use Status Former Tobacco user 01/26/25 13:02 PHQ-9: PHQ-9 Score PHQ-9: Total score 0 01/26/25 16:33 Thrive Assessment: Date of Thrive Assessment Date Thrive assessed 01/26/25 01/26/25 16:02 Const Other: Constitutional - Awake and Alert, No apparent distress Eyes - PERRL Ears - canals clear, external ears normal, tympanic membranes pearly mortensen with good cone of light Cardiovascular - S1S2, RRR, No edema Respiratory - Normal lung expansion, Normal respiratory effort, No respiratory distress, CTA bilaterally Extremities - no calf tenderness bilaterally, no swelling Skin - Warm/Dry Neurological - Alert & oriented x3, horizontal nystagmus otherwise CN II-XII in tact Psychological - Appropriate affect Coding Level of Care Code Tele New Pt Level 4 (38045) Complex EM visit Add On G2211 Diagnoses Vitamin B12 deficiency E53.8 Insomnia G47.00 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 K22.70 Vertigo R42 Assessment & Plan Assessment & Plan (1) Vitamin B12 deficiency: Code(s): E53.8 - Deficiency of other specified B group vitamins Category: Medical Plan: Vitamin B12 level ordered. Continue vitamin B12, dose to be adjusted as recommended pending results (2) Insomnia: Code(s): G47.00 - Insomnia, unspecified Category: Medical Plan: Recommend lowering dose of Ambien to 5 mg nightly. Discussed higher concentrations of Ambien in women compared to men. If she is still unable to sleep, advised to call the office and we will consider increasing dose. (3) 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: Comment: DISCOVERED ON 2021 SCOPE REPEAT IN 2 YEARS TO ASSESS FOR HEALING Code(s): K22.70 - Gibson's esophagus without dysplasia Category: Medical Plan: Continue following with Gastroenterology. No alarm symptoms. Continue omeprazole 40 mg b.i.d.. Avoid triggering food items. (4) Vertigo: Code(s): R42 - Dizziness and giddiness Category: Medical Plan: Meclizine increased to 25 mg t.i.d. p.r.n.. She is also referred to physical therapy for Vlad maneuver. If she remains symptomatic, can consider MRI of the brain, though symptoms do seem consistent with peripheral vertigo rather than central. We will also consider referral to ENT. Plan Follow-up in the office in 6 months, sooner if needed. Labs to be completed after today's visit. Lower Ambien dose to 5 mg nightly, contact the office if insomnia worsens. Orders: Orders Basic Metabolic Panel Today E53.8 - Deficiency of other specified B group vitamins, G47.00 - Insomnia, unspecified, K22.70 - Gibson's esophagus without dysplasia, Z13.1 - Encounter for screening for diabetes mellitus, Z13.220 - Encounter for screening for lipoid disorders Complete Blood Count Auto Diff Today E53.8 - Deficiency of other specified B group vitamins, G47.00 - Insomnia, unspecified, K22.70 - Gibson's esophagus without dysplasia, Z13.1 - Encounter for screening for diabetes mellitus, Z13.220 - Encounter for screening for lipoid disorders TSH reflex Free T4 Today E53.8 - Deficiency of other specified B group vitamins, G47.00 - Insomnia, unspecified, K22.70 - Gibson's esophagus without dysplasia, Z13.1 - Encounter for screening for diabetes mellitus, Z13.220 - Encounter for screening for lipoid disorders Hemoglobin A1c Today E53.8 - Deficiency of other specified B group vitamins, G47.00 - Insomnia, unspecified, K22.70 - Gibson's esophagus without dysplasia, Z13.1 - Encounter for screening for diabetes mellitus, Z13.220 - Encounter for screening for lipoid disorders Lipid Panel Today E53.8 - Deficiency of other specified B group vitamins, G47.00 - Insomnia, unspecified, K22.70 - Gibson's esophagus without dysplasia, Z13.1 - Encounter for screening for diabetes mellitus, Z13.220 - Encounter for screening for lipoid disorders Medications: New meclizine 25 mg PO TID PRN 90 tabs 0RF dizziness
[2025-01-26 16:08] VITALS: BP 124/90; PULSE 70; RESP 16; TEMP 36.7; O2SAT 98; BMI 38.2
== END 2025-01-26 16:36 | disposition home or self-care (01) ==
LOC: HO.HMCHD 15:30
PROVIDERS: PCP Internal Medicine; Visit Provider Physician Assistant
DX: E53.8 Deficiency of other specified B group vitamins (principal); G47.00 Insomnia, unspecified; K22.70 Barrett's esophagus without dysplasia; R42 Dizziness and giddiness

== ENCOUNTER → 2025-01-26 15:30 | Outpatient (BNVA) | payer OTHER, SELFPAY | PROVIDERS: PCP Internal Medicine; Visit Provider Physician Assistant | DX: J45.20 Mild intermittent asthma, uncomplicated (principal); G47.00 Insomnia, unspecified; R42 Dizziness and giddiness; E53.8 Deficiency of other specified B group vitamins; K22.70 Barrett's esophagus without dysplasia; Z87.891 Personal history of nicotine dependence; Z79.899 Other long term (current) drug therapy | CPT/HCPCS: 99202 ==

== ENCOUNTER 2025-03-09 08:53 | Outpatient (REF) | payer OTHER, SELFPAY ==
--- OUTSIDE RECORDS SUMMARY | 2025-03-09 09:00 | XMS_ITS | Clinical Summary ---
Author Organization [address] [facility] Address [address] [place] [address] Phone Care Team Providers Care Nursing Informatics Analyst Name Role Phone Ravinder Lombardo MD Primary Care Provider [phone] Allergies No known active allergies Medications amphetamine-dextroa mphetamine XR (ADDERALL XR) 20 mg 24 hr capsule Take 20 mg by mouth every morning. Active clonazePAM (KlonoPIN) 0.5 mg disintegrating tablet Take by mouth 2 times daily as needed. Active zolpidem (AMBIEN) 5 mg tablet Take by mouth at bedtime as needed. Active fluconazole (DIFLUCAN) 200 mg tablet Take 1 tablet (200 mg total) by mouth 1 (one) time per week. 1 tablet Active Active Problems Problem Noted Date Diagnosed Date Chronic venous hypertension (idiopathic) with inflammation of bilateral lower extremity 09/24/2022 Leg swelling 09/24/2022 Lymphedema of both lower extremities 09/24/2022 Morbid obesity ([facility] V24, [facility] V28) 2022 Medical History Medical History Date Comments Anxiety state DX:Anxiety state Depressive disorder DX:Depressiv e disorder Social History Tobacco Use Types Packs/Day Years Used Date Smoking Tobacco: Never Smokeless Tobacco: Never Alcohol Use Standard Drinks/Week Comments Never 0 (1 standard drink = 0.6 oz pur e alcohol) Comments Unknown Sex and Gender Information Value Date Recorded Sex Assigned at Not on file Legal Sex Female 11:58 PM EST Gender Identity Not on file Sexual Orientation Not on file Obstetrics History Last Filed Vital Signs Vital Sign Reading Time Taken Comments Blood Pressure 110/80 09/16/2023 11:22 AM EST Pulse 96 09/16/2023 11:22 AM EST Temperature - - Respiratory Rate - - Oxygen Saturation - - Inhaled Oxygen Concentration - - Weight 97.5 kg (215 lb) 09/23/2023 3:18 PM EST Height 157.5 cm (5' 2 ) 09/23/2023 3:18 PM EST Body Mass Index 39.32 09/23/2023 3:18 PM EST Plan of Treatment Health Maintenance Due Date Last Done Comments Breast Cancer Screening 1970 DTaP,Tdap,and Td Vaccines (1 - Tdap) 1989 Hepatitis B Vaccines (1 of 3 - 19+ 3-dose series) 1989 Cervical Cancer Screening: P ap Smear 1991 Cholesterol Screening (Lipid Panel) 08/30/2022 Colorectal Cancer Screening: Colonoscopy 08/30/2022 Depression Screening 08/30/2022 HIV Screening 08/30/2022 Hepatitis C Screening 08/30/2022 Social Influencers of Health Screening 08/30/2022 COVID-19 Vaccine (3 - 2023-2 5 season) 2024 01/31/2021, 01/10/2021 Zoster Vaccines (2 of 2) 09/27/2024 08/02/2024 Influenza Vaccine (Season Ended) 2025 06/12/2020, 06/13/2019 Pneumococcal Vaccine: 50+ Years Completed 08/02/2024 Pneumococcal Vaccine: Pediatrics (0 to 5 Years) and At-Risk Patients (6 to 64 Years) Aged Out 08/02/2024 No longer eligible b ased on patient's age to complete this topic HIB Vaccines Aged Out No longer eligi ble based on patient's age to complete this topic HPV Vaccines Aged Out No longer eligi ble based on patient's age to complete this topic Hepatitis A Vaccines Aged Out No long er eligible based on patient's age to complete this topic IPV Vaccines Aged Out No longer eligi ble based on patient's age to complete this topic MMR Vaccines Aged Out No longer eligi ble based on patient's age to complete this topic Meningococcal ACWY Vaccine Aged Out N o longer eligible based on patient's age to complete this topic Meningococcal B Vaccine Aged Out No l onger eligible based on patient's age to complete this topic RSV Immunization Patients Under 20 months Aged Out No longer eligible b ased on patient's age to complete this topic Varicella Vaccines Aged Out No longer eligible based on patient's [id number] [facility] [employer] Care Teams Nursing Informatics Analyst Relationship Specialty Start Date End Date Ravinder Lombardo MD [address] [place] [address] Dr Alysha [place] PCP - General Internal Medicine 05/15/21
[2025-03-09 10:01] LABS: MANUAL DIFF FLAG NO
[2025-03-09 10:12] LABS: Basophils Absolute Auto 0.1 X10*3/uL (0.0-0.2); Basophils Percent Auto 0.7 % (0-2); Eosinophils Absolute Auto 0.1 X10*3/uL (0.0-0.4); Eosinophils Percent Auto 1.5 % (0-4); Hematocrit 42.5 % (37.0-47.0); Hemoglobin 14.1 g/dl (12.0-16.0); Imm Gran Abs Auto 0.01 X10*3/uL (0.00-0.03); Imm Gran Pct Auto 0.1 % (0.0-0.4); Lymphocytes Absolute Auto 2.6 X10*3/uL (1.2-4.9); Lymphocytes Percent Auto 31.2 % (20-40); Mean Corpuscular HGB Conc 33.2 g/dl (31.0-35.0); Mean Corpuscular Hemoglobin 31.3 pg (27.0-33.0); Mean Corpuscular Volume 94.4 fL (80.0-98.0); Mean Platelet Volume 9.8 fL (9.4-12.3); Monocytes Absolute Auto 0.5 X10*3/uL (0.1-1.2); Monocytes Percent Auto 5.5 % (2-11); NRBC Pct Auto 0.2 /100WBC (0.0-0.2); Platelet Count 264 X10*3/uL (160-400); White Blood Count 8.2 X10*3/uL (4.8-10.8)
[2025-03-09 10:49] LABS: Anion Gap 12 (12-20); Blood Urea Nitrogen 11 mg/dL (9-16); Calcium 9.1 mg/dL (8.4-10.2); Carbon Dioxide 22 mmol/L (22-29); Chloride 111 mmol/L (96-108); Cholesterol 237 mg/dL (<200); Estimated Glomerular Filt Rate > 60; Glucose Random 105 mg/dL (60-115); HDL Cholesterol 34 mg/dL (>40); LDL Cholesterol Calculated 158 mg/dL (<100); Potassium 4.3 mmol/L (3.3-5.1); Sodium 141 mmol/L (135-145); Triglycerides 228 mg/dL (<150)
[2025-03-09 10:51] LABS: TSH reflex Free T4 4.24 uIU/mL (0.32-4.0)
[2025-03-09 10:54] LABS: Estimated Average Glucose 111 mg/dL; Hemoglobin A1c % 5.5 % (<6.0)
[2025-03-09 11:58] LABS: Free T4 (Free Thyroxine) 0.89 ng/dL (0.71-1.85)
== END 2025-03-09 08:54 | disposition home or self-care (01) ==
LOC: HO.10HDL 08:53
PROVIDERS: Visit Provider Physician Assistant
DX: E53.8 Deficiency of other specified B group vitamins (principal); K22.70 Barrett's esophagus without dysplasia; G47.00 Insomnia, unspecified; Z13.1 Encounter for screening for diabetes mellitus; Z13.220 Encounter for screening for lipoid disorders
CPT/HCPCS: 36415; 80048; 80061; 83036; 84439; 84443; 85025

== ENCOUNTER 2025-03-14 09:10 | Outpatient (REF) | payer OTHER, SELFPAY ==
[2025-03-14 12:03] LABS: Bacterial Vaginosis PCR POSITIVE (Negative); Candida Group PCR NOT DETECTED (Not Detect); Candida glab krusei PCR NOT DETECTED (Not Detect); Trichomonas vaginalis PCR NOT DETECTED (Not Detect)
[2025-03-14 12:35] LABS: CT PCR NOT DETECTED (Not Detect.); NG PCR NOT DETECTED (Not Detect.)
[2025-03-16 15:11] LABS: HPV Genotype 16 Negative (Negative); HPV Genotype 18 Negative (Negative); HPV High Risk Negative (Negative)
== END 2025-03-14 09:11 | disposition home or self-care (01) ==
LOC: HO.LNP 09:10
PROVIDERS: PCP Internal Medicine; Visit Provider Obstetrics & Gynecology
DX: Z01.419 Encounter for gynecological examination (general) (routine) without abnormal findings (principal); Z11.51 Encounter for screening for human papillomavirus (HPV)
CPT/HCPCS: 81515; 87491; 87591; 87626; 88175; 99396

== ENCOUNTER 2025-03-14 09:10 | Outpatient (AMB) | payer OTHER, SELFPAY ==
--- NOTE | 2025-03-14 09:11 | A.OFFVIS_ITS ---
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 Complaining of vulvovaginal irritation that have subsided after using [id number] antifungal cream Last Pap/HPV was negative in 02/08, preceded by ascus HPV negative in 2020 Last Mammogram was BI-RADS 1 in 07/13 Last Colonoscopy was done in 12/09, recommendation was to repeat in 5 years [facility] Medical History Well woman exam Hyperlipidemia Vitamin B12 deficiency Trochanteric bursitis of left hip Atelectasis Bone spur of posterior portion of right calcaneus Sebaceous cyst of labia Diarrhea Arthralgia of hip, left Campylobacter diarrhea Epigastric pain Spasm of muscle of lower back Well woman exam Acute left-sided back pain with sciatica ASCUS of cervix with negative high risk HPV Elevated cholesterol History of depression ADD (attention deficit disorder) PTSD (post-traumatic stress disorder) History of methicillin resistant staphylococcus aureus (MRSA) Helicobacter pylori (H. pylori) infection Chronic low back pain Hx of cardiac murmur Asthma Tubular adenoma of colon Irritable bowel syndrome with constipation GERD (gastroesophageal reflux disease) Surgical History History of esophagogastroduodenoscopy (EGD) Hx of section History of endometrial ablation History of tubal ligation History of foot surgery Hx of colonoscopy with polypectomy (~11/18/21) Hx of cholecystectomy History of appendectomy Family History Father Family history of Alzheimer's disease History of dementia Mother Hx of type 2 diabetes mellitus Social History Household Members: Spouse and Family Housing: House Alcohol intake: current Alcohol intake frequency: a few times a month Patient Tobacco Use Status: Former Tobacco user Substance Use Type: Marijuana service: No Current occupational status: unemployed and disabled Sexual orientation: Straight/Heterosexual Gender identity: Female Cognitive needs: No Hearing needs: No Vision needs: Yes (Rx glasses) Female Reproductive History Menstrual Age of Menarche: 12 control method: permanent sterilization Date of last pap smear: 02/05/22 Date of Mammogram: 07/10/24 Review of Systems Const All systems reviewed & are unremarkable except as noted in HPI and below Card Reports as per HPI Resp Reports as per HPI GI Reports as per HPI and Reports no additional complaints Reports as per HPI Physical Exam Vital Signs: Last Vital Signs BP 122/70 03/14/25 09:13 BMI result Body Mass Index 36.6 Const General: cooperative, healthy appearing and comfortable Chest Chest palpation & inspection: normal inspection of the chest and normal palpation of entire chest wall Breast/axilla inspection: normal inspection of the breasts and normal inspection of the axillae Breast/axilla palpation: normal palpation of the breasts, normal palpation of the axillae and no axillary lymphadenopathy Resp Effort & Inspection: normal respiratory effort Auscultation: clear to auscultation bilaterally Percussion: percussion normal Cardio Palpation: normal PMI Rate: regular rate Rhythm: regular rhythm Heart sounds: no murmurs and no rubs Peripheral pulses: Peripheral pulses 2+ throughout GI Inspection: Yes normal to inspection Palpation (GI): Soft to palpation, nontender, no guarding, not rigid and No hepatosplenomegaly present Percussion: Yes normal to percussion Auscultation: normal bowel sounds Rectal Exam - Female: deferred General: Yes bladder normal to palpation External Female Exam: No lesion Speculum Exam - Vagina: normal appearance of the vagina, normal palpation, normal vaginal discharge and not erythematous Speculum Exam - Cervix: normal appearance of the cervix and normal palpation Bimanual exam- vagina & uterus: normal bimanual exam, normal palpation, uterine size normal, bladder normal to palpation, consistency normal and normal palpation Bimanual Exam- Adnexa, other: normal adnexae, no masses and no tenderness Assessment & Plan Assessment & Plan (1) Well woman exam: Comment: ASCUS HPV negative in 02/07 02/08 co testing Code(s): Z01.419 - Encounter for gynecological examination (general) (routine) without abnormal findings Category: Medical Plan: Co testing done. GC/CT with BV panel collected, will check the results and treat accordingly Counseled the patient about the recommended dietary allowance of 1200 mg of Calcium & 600 IU of vitamin D. Instructions given the patient to schedule next screening Mammogram in 07/14. The patient was instructed to perform monthly self-breast exams and schedule annual exam in a year. All questions answered and the patient verbalized understanding. Coding Level of Care Code Est Pt Prev Care 40-64y(51566) Diagnoses Well woman exam Z01.419
[2025-03-14 09:13] VITALS: BP 122/70; BMI 36.6
--- OUTSIDE RECORDS SUMMARY | 2025-03-14 09:59 | XMS_ITS | Clinical Summary ---
Author Organization [address] [facility] Address [address] [place] [address] Phone Care Team Providers Care Canal Driver Name Role Phone Ravinder Lombardo MD Primary Care Provider [phone] Allergies No known active allergies Medications amphetamine-dextroa [...] of both lower extremities 09/24/2022 Morbid obesity ([facility] V24, [facility] V28) 2022 Medical History Medical History Date [...] [place] this [id number] [employer] Care Teams Canal Driver Relationship Specialty Start Date End Date Ravinder Lombardo MD [address] [place] [address] Dr Aylsha MA PCP - General Internal Medicine 05/15/21
== END 2025-03-14 09:40 | disposition home or self-care (01) ==
LOC: HO.HWS 09:10
PROVIDERS: PCP Internal Medicine; Visit Provider Obstetrics & Gynecology
DX: Z01.419 Encounter for gynecological examination (general) (routine) without abnormal findings (principal)
CPT/HCPCS: 99396; 99459

== ENCOUNTER 2025-03-21 11:49 | Outpatient (AMB) | payer OTHER, SELFPAY ==
--- NOTE | 2025-03-21 12:05 | MHC.OFFVIS ---
Vital Signs 03/21/25 12:06 Height 5 ft 2 in Weight 199 lb BMI 36.4 BP 122/78 Blood Pressure Location Lt brachial Position Sitting Pulse 94 Pulse Oximetry (%) 97 Oxygen Delivery Method Room Air Intake Visit Reasons: f/u GERD CIC Intake Note: Patient follow up for GERD and CIC. Patient denies any GI issues. 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 She also had very severe heartburn. She restarted her omeprazole 40 mg twice a day and her Linzess 145 micro g and now she is doing well. She still has not taken the metoclopramide and it seems that her nausea and her appetite have improved so we will keep this out with a mix for now. Today she also requests a refill on her senna but does not want to refill on omeprazole or simethicone because she seems to have a plethora of this on hand. Return office visit in 6 months Medications: Refilled sennosides (senna) 17.2 mg (2 x 8.6 mg) PO BID 360 tabs 1RF for constipation linaclotide (Linzess) 145 mcg PO QAM 30 caps 6RF K58.1 - Irritable bowel syndrome with constipation On Hold metoclopramide HCl (Reglan) Hold Comment: Doctor's Order 5 mg PO QIDACHS 120 tabs 3RF K59.9 - Functional intestinal disorder, unspecified TODAYS VISIT Her current GI regimen consists of Linzess 145 micro g, senna, simethicone, and omeprazole. She was on Reglan but that seem to cause her more problems so she stopped it. She is struggling with vertigo now, in the past meclizine worked for her. Dr. Lombardo is her PCP but he retired so she is having trouble - apparently they ordered a tilt table test but no referral to PT. ROV 6 mos. PFS Medical History Well woman exam Hyperlipidemia Vitamin B12 deficiency Trochanteric bursitis of left hip Atelectasis Bone spur of posterior portion of right calcaneus Sebaceous cyst of labia Diarrhea Arthralgia of hip, left Campylobacter diarrhea Epigastric pain Spasm of muscle of lower back Well woman exam Acute left-sided back pain with sciatica ASCUS of cervix with negative high risk HPV Elevated cholesterol History of depression ADD (attention deficit disorder) PTSD (post-traumatic stress disorder) History of methicillin resistant staphylococcus aureus (MRSA) Helicobacter pylori (H. pylori) infection Chronic low back pain Hx of cardiac murmur Asthma Tubular adenoma of colon Irritable bowel syndrome with constipation GERD (gastroesophageal reflux disease) Surgical History History of esophagogastroduodenoscopy (EGD) Hx of section History of endometrial ablation History of tubal ligation History of foot surgery Hx of colonoscopy with polypectomy (~11/18/21) Hx of cholecystectomy History of appendectomy Family History Father Family history of Alzheimer's disease History of dementia Mother Hx of type 2 diabetes mellitus Social History Household Members: Spouse and Family Housing: House Alcohol intake: current Alcohol intake frequency: a few times a month Patient Tobacco Use Status: Former Tobacco user Substance Use Type: Marijuana service: No Current occupational status: unemployed and disabled Sexual orientation: Straight/Heterosexual Gender identity: Female Cognitive needs: No Hearing needs: No Vision needs: Yes (Rx glasses) Female Reproductive History Menstrual Age of Menarche: 12 Review of Systems Const Denies fatigue, Denies fever(s), Denies night sweats, Denies poor appetite and Denies weight loss ENT Reports Normal hearing present, Denies dental pain, Denies dysphagia, Reports dizziness, Denies hearing loss, Denies mouth pain, Denies odynophagia, Denies throat swelling, Denies tongue swelling and Reports other (Dentition adequate) Card Reports no additional complaints Resp Reports no additional complaints GI Details: Denies abdominal pain, Denies melena, Denies bloating, Denies hematochezia, Reports constipation, Denies GI cramping, Denies dysphagia, Denies excessive flatus, Denies early satiety, Reports heartburn, Denies diarrhea, Denies nausea, Denies odynophagia, Denies vomiting and Denies hematemesis Skin/Breast Denies pruritus, Denies lesions, Denies rash and Denies jaundice Neuro Reports Normal hearing present, Denies Abnormal speech present and Reports dizziness Endo Denies fatigue Aller/Immun Denies throat swelling and Denies tongue swelling Physical Exam Vital Signs: Last Vital Signs Pulse 94 03/21/25 12:06 BP 122/78 03/21/25 12:06 Pulse Ox 97 03/21/25 12:06 Oxygen Delivery Method Room Air 03/21/25 12:06 BMI result Body Mass Index 36.4 Const General: cooperative, no acute distress, well developed and well groomed Nutritional Appearance: well nourished and obese Orientation/consciousness: oriented to person, oriented to place and oriented to time Limitations: No language barrier HEENT Head: Yes normocephalic and Yes atraumatic Eyes General: appearance normal, both eyes and all related structures Pupils: Equal, round and reactive pupils present Neck Neck: Yes normal visual inspection and Yes no lymphadenopathy Thyroid: Thyroid normal Resp Effort & Inspection: normal respiratory effort and able to speak in complete sentences Auscultation: clear to auscultation bilaterally Cardio Rate: regular rate Rhythm: regular rhythm Heart sounds: Normal, physiologic split S2 sound present Peripheral pulses: radial pulses present and posterior tibial pulses present GI Inspection: No distended, Yes Abdominal panniculus present and Yes obesity Palpation (GI): Soft to palpation, nontender, no guarding, not rigid and No hepatosplenomegaly present Percussion: Yes normal to percussion Auscultation: normal bowel sounds Rectal Exam - Female: deferred Skin General skin exam: no rashes or lesions noted, turgor normal, skin not dry, no jaundice, No spider nevi and no striae Rashes: no rashes Nails: normal Neuro General: oriented to person, oriented to place and oriented to time Cranial nerves: Yes Equal, round and reactive pupils present and Yes Normal hearing present Speech: No Abnormal speech present Extrem General: Yes normal to inspection, No clubbing, No cyanosis and No edema Psych Appearance: grossly normal and well kempt Mental Status: mental status grossly normal Speech and movement: Normal speech and movement present Affect: normal affect Attitude: cooperative Thought process: Normal thought process present and not confabulating Thought content: Normal thought content present Insight: Fair insight present (Psych) and Limited insight present (Psych) Judgement: Fair judgement present (Psych) and Limited judgement present (Psych) Assessment & Plan Assessment & Plan (1) GERD (gastroesophageal reflux disease): Code(s): K21.9 - Gastro-esophageal reflux disease without esophagitis Category: Medical (2) Erosive esophagitis: Code(s): K22.10 - Ulcer of esophagus without bleeding Category: Medical (3) 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: Comment: DISCOVERED ON 2021 SCOPE REPEAT IN 2 YEARS TO ASSESS FOR HEALING Code(s): K22.70 - Gibson's esophagus without dysplasia Category: Medical (4) Irritable bowel syndrome with constipation: Code(s): K58.1 - Irritable bowel syndrome with constipation Category: Medical (5) Small bowel obstruction due to adhesions: Code(s): K56.50 - Intestinal adhesions [bands], unspecified as to partial versus complete obstruction Category: Medical (6) Small bowel motility disorder: Code(s): K59.9 - Functional intestinal disorder, unspecified Category: Medical (7) Vertigo: Code(s): R42 - Dizziness and giddiness Category: Medical Plan Her current GI regimen consists of Linzess 145 micro g, senna, simethicone, and omeprazole. She was on Reglan but that seem to cause her more problems so she stopped it. She is struggling with vertigo now, in the past meclizine worked for her. Dr. Lombardo is her PCP but he retired so she is having trouble - apparently they ordered a tilt table test but no referral to PT. ROV 6 mos Orders: Orders PT Evaluation and Treatment Today R42 - Dizziness and giddiness Medications: Refilled sennosides (senna) 17.2 mg (2 x 8.6 mg) PO BID 360 tabs 1RF for constipation meclizine 25 mg PO TID PRN 90 tabs 0RF for dizziness linaclotide (Linzess) 145 mcg PO QAM 30 caps 6RF K58.1 - Irritable bowel syndrome with constipation simethicone (Gas Relief (simethicone)) 125 mg PO TID PRN 90 tabs 3RF abdominal distention 30 days MDD 3 K21.9 - Gastro-esophageal reflux disease without esophagitis, K58.1 - Irritable bowel syndrome with constipation Discontinued metoclopramide HCl (Reglan) Discontinued Reason: Doctor's Order 5 mg PO QIDACHS 120 tabs 3RF K59.9 - Functional intestinal disorder, unspecified Coding Level of Care Code Est Pt Level 3 (67344) Diagnoses GERD (gastroesophageal reflux disease) K21.9 Erosive esophagitis K22.10 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
[2025-03-21 12:06] VITALS: BP 122/78; PULSE 94; O2SAT 97; BMI 36.4
--- OUTSIDE RECORDS SUMMARY | 2025-03-21 12:35 | XMS_ITS | Clinical Summary ---
Author Organization [facility] Address [address] [facility] [address] [place] [address] Phone Care Team Providers Care School Leader Name Role Phone Ravinder Lombardo MD Primary Care Provider [phone] Allergies No known active allergies Medications zolpidem [...] (1 of 3 - 19+ 3-dose series) 04/17 Colorectal Cancer Screening: Annual FOBT 2019 Colorectal Cancer Screening: Colonoscopy 2019 Colorectal Cancer Screening: Sigmoidoscopy 2019 Pneumococcal Vaccine: 50+ Years (1 of 1 - PCV) 020 Influenza Vaccine (Season Ended) 2025 Insurance [employer] [employer] [employer] Care Teams School Leader Relationship Specialty Start Date End Date Ravinder Lombardo MD [address] [place] [address] [id number] [place] PCP - General Internal Medicine 04/29/21
--- OUTSIDE RECORDS SUMMARY | 2025-03-21 12:35 | XMS_ITS | Clinical Summary ---
Author Organization [address] [facility] Address [address] [place] [address] Phone Care Team Providers Care Head Setter Name Role Phone Ravinder Lombardo MD Primary Care Provider [phone] Allergies No known active allergies Medications amphetamine-dextroa [...] of both lower extremities 09/24/2022 Morbid obesity ([facility] V24, [facility] V28) 2022 Medical History Medical History [...] [place] this [place] [id number] COUNTS INCLUDE 234 BEDS AT [facility] PL[facility] Care Teams Head Setter Relationship Specialty Start Date End Date Ravinder Lombardo MD [address] [place] [address] Dr Alysha [place] PCP - General Internal Medicine 05/15/21
== END 2025-03-21 12:35 | disposition home or self-care (01) ==
LOC: HO.HGI 11:49
PROVIDERS: PCP Internal Medicine; Visit Provider Nurse Practitioner
DX: K21.9 Gastro-esophageal reflux disease without esophagitis (principal); K22.10 Ulcer of esophagus without bleeding; K22.70 Barrett's esophagus without dysplasia; K58.1 Irritable bowel syndrome with constipation; K56.50 Intestinal adhesions [bands], unspecified as to partial versus complete obstruction; K59.9 Functional intestinal disorder, unspecified; R42 Dizziness and giddiness
CPT/HCPCS: 99213

== ENCOUNTER → 2025-03-21 11:49 | Outpatient (BNVA) | payer OTHER, SELFPAY | PROVIDERS: PCP Internal Medicine; Visit Provider Nurse Practitioner | DX: K21.9 Gastro-esophageal reflux disease without esophagitis (principal); K58.1 Irritable bowel syndrome with constipation; K22.10 Ulcer of esophagus without bleeding; K22.70 Barrett's esophagus without dysplasia; K56.50 Intestinal adhesions [bands], unspecified as to partial versus complete obstruction; K59.9 Functional intestinal disorder, unspecified; R42 Dizziness and giddiness | CPT/HCPCS: 99212 ==

== ENCOUNTER 2025-07-16 15:59 | Outpatient (REF) | payer OTHER, SELFPAY ==
--- OUTSIDE RECORDS SUMMARY | 2025-07-16 18:58 | XMS_ITS | Clinical Summary ---
Author Organization [address] [facility] Address [address] [place] [address] Phone Care Team Providers Care Reading Recovery Teacher Name Role Phone Ravinder Lombardo MD Primary Care Provider Allergies No known active allergies Medications amphetamine-dextroa [...] of both lower extremities 09/24/2022 Morbid obesity ([facility] V24, [facility] V28) 2022 Medical History Medical History Date [...] Last Done Comments Breast Cancer Screening 1970 Colorectal Cancer Screening: Colonoscopy 1970 DTaP,Tdap,and Td Vaccines (1 - Tdap) 1989 Hepatitis B Vaccines (1 of 3 - 19+ 3-dose series) 1989 Cervical Cancer Screening: P ap Smear 1991 Cholesterol Screening (Lipid Panel) 08/30/2022 HIV Screening 08/30/2022 Hepatitis C Screening 08/30/2022 Social Influencers of Health Screening 08/30/2022 Depression Screening 09/20/2024 Zoster Vaccines (2 of 2) 09/27/2024 08/02/2024 COVID-19 Vaccine (3 - 2024-2 6 season) 2025 01/31/2021, 01/10/2021 Influenza Vaccine (#1) 2025 , 06/13/2019 RSV Immunization Adult Patients (1 - 1-dose 75+ series) 2045 Pneumococcal Vaccine: 50+ Years Completed 08/02/2024 HIB Vaccines Aged Out No longer eligi [...] patient's age to complete this topic Insurance [facility] PL[facility] Care Teams Reading Recovery Teacher Relationship Specialty Start Date End Date Ravinder Lombardo MD [address] [place] [address] Dr Alysha [place] PCP - General Internal Medicine 05/15/21
--- OUTSIDE RECORDS SUMMARY | 2025-07-16 18:58 | XMS_ITS | Clinical Summary ---
Author Organization [facility] Address [address] [facility] [address] [place] [address] Phone Care Team Providers Care Keg Header Name Role Phone Ravinder Lombardo MD Primary Care Provider Allergies No known active allergies Medications zolpidem [...] of 1 - PCV) 020 Influenza Vaccine (#1) 2025 Insurance [employer] Care Teams Keg Header Relationship Specialty Start Date End Date Ravinder Lombardo MD [address] [place] [address] [id number] [place] FRANCIS PCP - General Internal Medicine 04/29/21
== END 2025-07-16 16:00 | disposition home or self-care (01) ==
LOC: HO.MAMMO 15:59
PROVIDERS: PCP Obstetrics & Gynecology; Visit Provider Obstetrics & Gynecology
DX: Z12.31 Encounter for screening mammogram for malignant neoplasm of breast (principal)
CPT/HCPCS: 77063; 77067

== ENCOUNTER → 2025-07-16 16:00 | Outpatient (BNV) | payer OTHER, SELFPAY | PROVIDERS: PCP Obstetrics & Gynecology; Visit Provider Internal Medicine | DX: Z12.31 Encounter for screening mammogram for malignant neoplasm of breast (principal) | CPT/HCPCS: 77063; 77067 ==

== ENCOUNTER 2025-08-13 21:12 | Emergency (ER) | payer OTHER, SELFPAY ==
--- NOTE | ~2025-08-13 | US_ITS ---
CLINICAL HISTORY: pain, swelling Venous duplex ultrasound right lower extremity Comparison: None provided Findings: The visualized deep veins are fully compressible with normal Doppler color flow and spectral tracings. No popliteal cyst. IMPRESSION: 1. Negative for right lower extremity deep vein thrombosis. This document has been electronically signed by: Paulo Healy MD on 08/13/2025 22:28:07
--- NOTE | ~2025-08-13 | XR_ITS ---
CLINICAL HISTORY: pain 3 view, pelvis and right hip Comparison: CT/IA/SR - CT ABDOMEN PELVIS WITH IV CONTRAST - 01/21/24 15:45 EDT Findings: No acute fracture or dislocation. No significant arthritic change of the hips. The soft tissues are unremarkable. IMPRESSION: No acute findings. This document has been electronically signed by: Paulo Healy MD on 08/13/2025 22:27:19
[2025-08-13 21:16] VITALS: BP 118/86; PULSE 100; RESP 20; TEMP 36.3; O2SAT 97; BMI 38.0
[2025-08-13 21:37] VITALS: BP 125/66; PULSE 82; RESP 18; TEMP 36.8; O2SAT 98
[2025-08-13 21:42] LABS: MANUAL DIFF FLAG NO
[2025-08-13 21:43] LABS: Hematocrit 40.9 % (37.0-47.0); Hemoglobin 13.8 g/dl (12.0-16.0); Imm Gran Abs Auto 0.02 X10*3/uL (0.00-0.03); Imm Gran Pct Auto 0.3 % (0.0-0.4); Lymphocytes Absolute Auto 3.2 X10*3/uL (1.2-4.9); Mean Corpuscular HGB Conc 33.7 g/dl (31.0-35.0); Mean Corpuscular Hemoglobin 31.7 pg (27.0-33.0); Mean Corpuscular Volume 93.8 fL (80.0-98.0); NRBC Abs Auto 0.000 X10*3/uL (0.0-0.012); NRBC Pct Auto 0.0 /100WBC (0.0-0.2); Platelet Count 242 X10*3/uL (160-400); Red Blood Count 4.36 X10*6/uL (4.20-5.50); White Blood Count 7.6 X10*3/uL (4.8-10.8)
--- OUTSIDE RECORDS SUMMARY | 2025-08-13 21:44 | XMS_ITS | Clinical Summary ---
Author Organization [address] [facility] Address [address] [place] [address] Phone Care Team Providers Care Local Truck Driver Name Role Phone Ravinder Lombardo MD Primary Care Provider [phone] Allergies No known active allergies Medications amphetamine-dextroa [...] of both lower extremities 09/24/2022 Morbid obesity ([facility] V24, [facility] V28) 2022 Medical History Medical History Date [...] patient's age to complete this topic Insurance [facility] PLANS Care Teams Local Truck Driver Relationship Specialty Start Date End Date Ravinder Lombardo MD [address] [place] [address] Dr Alysha [place] PCP - General Internal Medicine 05/15/21
--- NOTE | 2025-08-13 21:45 | ED.GENADULT ---
HPI - General Adult General Chief complaint: General Medical Stated complaint: Knee Leg Pain Time Seen by Provider: 08/13/25 21:37 Source: patient Mode of arrival: ambulatory Limitations: no limitations History of Present Illness ED Provider: Dr. Vannessa Pelaez HPI narrative: patient comes to the emergency room complaining of right lower extremity pain and swelling. Patient states that this morning she woke up with her right lower extremity being red, swollen, pain to palpation. Patient denies any fever or chills. Related Data Home Medications ?Medication ?Instructions ?Recorded ?Confirmed clonazepam 0.5 mg tablet 0.5 mg PO BID PRN Anxiety 10/02/20 05/24/24 zolpidem 10 mg tablet 10 mg PO BEDTIME Sleep 11/01/20 05/24/24 metronidazole 0.75 % topical cream 1 appl topical BID PRN rosacea 10/05/22 05/24/24 dextroamphetamine-amphetamine 20 1 tab PO BID@0900,1400 10/27/23 05/24/24 mg tablet lorazepam 1 mg tablet 1 mg PO DAILY PRN 01/26/25 Previous Rx's ?Medication ?Instructions ?Recorded cholecalciferol (vitamin D3) 125 125 mcg PO DAILY #90 caps 07/21/22 mcg (5,000 unit) capsule mecobalamin (vitamin B12) 1,000 1,000 mcg sublingual DAILY #30 tabs 07/21/22 mcg disintegrating tablet,sublingual clotrimazole-betamethasone 1 1 appl topical BID 5 days #45 grams 03/13/24 %-0.05 % topical cream tizanidine 4 mg tablet 4 mg PO BID PRN for muscle spasm 10/24/24 30 days #60 tabs omeprazole 40 mg capsule,delayed 40 mg PO BID #180 caps 01/19/25 release semaglutide 0.25 mg or 0.5 mg (2 0.25 mg (0.368 mL) subcut QWEEK #3 01/29/25 mg/3 mL) subcutaneous pen injector mL metronidazole 500 mg tablet 500 mg PO BID 7 days #14 tabs 03/14/25 linaclotide 145 mcg capsule 145 mcg PO QAM #30 caps 03/21/25 (Linzess) sennosides 8.6 mg tablet (senna) 17.2 mg (2 x 8.6 mg) PO BID for 03/21/25 constipation #360 tabs simethicone 125 mg chewable tablet 125 mg PO TID PRN abdominal 03/21/25 (Gas Relief (simethicone)) distention 30 days #90 tabs albuterol sulfate 90 mcg/actuation 2 inh inhalation Q4-6H #8.5 grams 04/18/25 aerosol inhaler (Ventolin HFA) meclizine 25 mg tablet 25 mg PO TID PRN for dizziness #90 05/09/25 tabs cetirizine 10 mg tablet 10 mg PO DAILY PRN Allergy 07/09/25 Symptoms 90 days #90 tabs Allergies Allergy/AdvReac Type Severity Reaction Status Date / Time Seasonal Allergies Allergy Unknown Unknown Verified 08/13/25 21:18 No Known Drug Allergies Allergy Unknown Verified 08/13/25 21:18 Review of Systems Review of Systems: Constitutional : No Weight loss, No Fever, No Chills, No Night Sweats, No Fatigue, No Malaise ENT/Mouth : No Hearing loss, No Ear Pain, No Nasal Congestion, No Sinus Pain, No Hoarseness, No sore throat, No Rhinorrhea, No Swallowing Difficulty Eyes: No Eye Pain, No Swelling, No Redness, No Foreign Body, No Discharge, No Vision Changes Cardiovascular : No Chest Pain, No SOB, No Dyspnea on Exertion, No Orthopnea, No Edema, No Palpitations Respiratory : No Cough, No Sputum, No Wheezing, No Smoke Exposure, No Dyspnea Gastrointestinal : No Nausea, No Vomiting, No Diarrhea, No Constipation, No abdominal Pain, No Hematochezia, No Melena Genitourinary : no irregular bleeding, No Dysuria, No Urinary Frequency, No Hematuria, No Urinary Incontinence, No Urgency, No Flank Pain, No Urinary Flow Changes, No Hesitancy Musculoskeletal : No joint pain, No Myalgias, No Joint Swelling, complaining of right lower extremity pain w Skin : Complaining of right lower extremity redness Neuro : No Weakness, No Numbness, No Paresthesias, No Loss of Consciousness, No Dizziness, No Headache Psych : No Anxiety/Panic, No Depression, No SI/HI/AH/VH, No Social Issues, Heme/Lymph: No Bruising, No Bleeding,No Lymphadenopathy Endocrine : No Polyuria, No Polydipsia, No Temperature Intolerance PMFSH Past Medical History Medical History Well woman exam Hyperlipidemia Vitamin B12 deficiency Trochanteric bursitis of left hip Atelectasis Bone spur of posterior portion of right calcaneus Sebaceous cyst of labia Diarrhea Arthralgia of hip, left Campylobacter diarrhea Epigastric pain Spasm of muscle of lower back Well woman exam Acute left-sided back pain with sciatica ASCUS of cervix with negative high risk HPV Elevated cholesterol History of depression ADD (attention deficit disorder) PTSD (post-traumatic stress disorder) History of methicillin resistant staphylococcus aureus (MRSA) Helicobacter pylori (H. pylori) infection Chronic low back pain Hx of cardiac murmur Asthma Tubular adenoma of colon Irritable bowel syndrome with constipation GERD (gastroesophageal reflux disease) Surgical History History of esophagogastroduodenoscopy (EGD) Hx of section History of endometrial ablation History of tubal ligation History of foot surgery Hx of colonoscopy with polypectomy (~11/18/21) Hx of cholecystectomy History of appendectomy Family History Family History Father Family history of Alzheimer's disease History of dementia Mother Hx of type 2 diabetes mellitus Social History Social History Household Members: Spouse and Family Housing: House Alcohol intake: current Alcohol intake frequency: does not drink Patient Tobacco Use Status: Former Tobacco user Smoked in Last 30 Days: No Use of substances other than those prescribed or required for medical reasons: Yes Substance Use Type: Marijuana Substance Use Frequency: Daily Advance Directives: No Advance Directives Information Provided: No service: No Current occupational status: unemployed and disabled Sexual orientation: Straight/Heterosexual Gender identity: Female Cognitive needs: No Hearing needs: No Vision needs: Yes (Rx glasses) Physical Exam ED Exam Exam: Appearance: Alert. Oriented X3. No acute distress. Eyes: Pupils equal, round and reactive to light. ENT: Pharynx normal. Neck: Normal inspection. Neck supple. No lymph nodes noted. No crepitus CVS: Normal heart rate and rhythm. Pulses normal. Normal S1 and S2 Respiratory: No respiratory distress. Breath sounds normal. No Wheezing. No rales Abdomen: Soft and nontender. No rigidity. No distention. Skin: Skin warm and dry. there is erythema in the right lower extremity, Extremities: they were lower extremity there is erythema, close to pitting edema, pain to palpation in the dorsal aspect of the lower extremity Neuro: Oriented X 3. No motor deficit. No sensory deficit. Moving all extremities. No slurred speech. CN 2 through 12 grossly intact Psych: calm, cooperative, normal affect Vital Signs: Vital Signs - 24 hr 08/13/25 21:16 08/13/25 21:37 Temperature 97.4 F 98.2 F Pulse Rate 100 82 Respiratory Rate 20 18 Blood Pressure 118/86 125/66 Pulse Oximetry 97 98 Oxygen Delivery Method Room Air Room Air BMI result Body Mass Index 38.0 Course Course Course Narrative: all of patient's labs pending. Medical Decision Making Medical Decision Making [facility] Narrative: patient also mentioned that she is having right hip pain, it has been going on for months, worse with walking and bearing weight. From patient's description, it is likely that patient has arthritis versus osteoarthritis. No injuries/ falls/trauma reported. my interpretation of labs: No significant abnormality in patient's hematology or chemistry ultrasound negative for DVT patient was given cephalexin and doxycycline for cellulitis Differential Diagnosis Differential Diagnoses: The differential diagnosis associated with the presentation includes ( Cellulitis, DVT) Admission/Observation Consideration of admission/observation: Escalation of care including admission/observation considered ( given patient's presentation and complaints, observation was considered) Lab Data [facility] Lab Attestation statement: I reviewed the patient's lab results. 08/13/25 21:28 08/13/25 21:28 Labs: Lab Results 08/13/25 Range/Units 21:28 WBC 7.6 (4.8-10.8) X10*3/uL RBC 4.36 (4.20-5.50) X10*6/uL Hgb 13.8 (12.0-16.0) g/dl Hct 40.9 (37.0-47.0) % MCV 93.8 (80.0-98.0) fL MCH 31.7 (27.0-33.0) pg MCHC 33.7 (31.0-35.0) g/dl RDW 11.9 (11.0-16.0) % Plt Count 242 (160-400) X10*3/uL MPV 9.7 (9.4-12.3) fL Immature Gran % (Auto) 0.3 (0.0-0.4) % Neut % (Auto) 47.1 (45-73) % Lymph % (Auto) 42.3 H (20-40) % Aiken % (Auto) 7.5 (2-11) % Eos % (Auto) 2.1 (0-4) % Baso % (Auto) 0.7 (0-2) % Lymph # (Auto) 3.2 (1.2-4.9) X10*3/uL Aiken # (Auto) 0.6 (0.1-1.2) X10*3/uL Eos # (Auto) 0.2 (0.0-0.4) X10*3/uL Baso # (Auto) 0.1 (0.0-0.2) X10*3/uL Abs Immat Gran (auto) 0.02 (0.00-0.03) X10*3/uL Absolute Neuts (auto) 3.6 (2.0-8.3) x10*3/uL Absolute Nucleated RBC 0.000 (0.0-0.012) X10*3/uL Nucleated RBC % (auto) 0.0 (0.0-0.2) /100WBC Sodium 144 (135-145) mmol/L Potassium 3.9 (3.3-5.1) mmol/L Chloride 110 H (96-108) mmol/L Carbon Dioxide 25 (22-29) mmol/L Anion Gap 13 (12-20) BUN 14 (9-16) mg/dL Creatinine 0.90 (0.5-1.4) mg/dL Estim Creat Clear Calc 75.6 Estimated GFR > 60 Random Glucose 110 (60-115) mg/dL Calcium 9.5 (8.4-10.2) mg/dL Total Bilirubin 0.3 (0.0-1.0) mg/dL AST 22 (5-31) U/L ALT 20 (0-31) U/L Alkaline Phosphatase 91 (39-117) U/L Total Protein 7.2 (6.5-8.0) g/dL Albumin 4.3 (3.5-5.0) g/dL Independent Interpretation I performed an independent interpretation of an: Ultrasound Radiology Impression Discussion of test interpretation with radiology: I have reviewed the radiologist's reading. Radiologist Impression: The visualized deep veins are fully compressible with normal Doppler color flow and spectral tracings. No popliteal cyst. IMPRESSION: 1. Negative for right lower extremity deep vein thrombosis. No acute fracture or dislocation. No significant arthritic change of the hips. The soft tissues are unremarkable. IMPRESSION: No acute findings. Discharge Plan Discharge Clinical Impression: Cellulitis, Chronic hip pain Patient Disposition: Home, Self-Care Additional Instructions: Please follow-up with your primary care physician tomorrow. If you have any worsening or new symptoms, please return to the emergency room or call 911 Prescriptions: No Action cholecalciferol (vitamin D3) 125 mcg (5,000 unit) capsule 125 mcg PO DAILY Qty: 90 1RF mecobalamin (vitamin B12) 1,000 mcg tablet,disintegrating 1,000 mcg sublingual DAILY Qty: 30 1RF Rx Instructions: place tablet under tongue and allow to dissolve for at least30 secs before swallowing tizanidine 4 mg tablet 4 mg PO BID PRN (Reason: for muscle spasm) 30 Days Qty: 60 5RF omeprazole 40 mg capsule,delayed release(DR/EC) 40 mg PO BID Qty: 180 2RF metronidazole 500 mg tablet 500 mg PO BID 7 Days Qty: 14 0RF albuterol sulfate [Ventolin HFA] 90 mcg/actuation HFA aerosol inhaler 2 inh inhalation Q4-6H Qty: 8.5 3RF meclizine 25 mg tablet 25 mg PO TID PRN (Reason: for dizziness) Qty: 90 0RF cetirizine 10 mg tablet 10 mg PO DAILY PRN (Reason: Allergy Symptoms) 90 Days Qty: 90 1RF zolpidem 10 mg tablet 10 mg PO BEDTIME clonazepam 0.5 mg tablet 0.5 mg PO BID PRN (Reason: Anxiety) metronidazole 0.75 % cream 1 appl topical BID PRN (Reason: rosacea) dextroamphetamine-amphetamine 20 mg tablet 1 tab PO BID@0900,1400 clotrimazole-betamethasone 1-0.05 % cream 1 appl topical BID 5 Days Qty: 45 0RF lorazepam 1 mg tablet 1 mg PO DAILY PRN semaglutide 0.25 mg or 0.5 mg (2 mg/3 mL) pen injector 0.25 mg subcut QWEEK Qty: 3 1RF Rx Instructions: for 4 weeks Linzess 145 mcg capsule 145 mcg PO QAM Qty: 30 6RF sennosides [senna] 8.6 mg tablet 17.2 mg PO BID Qty: 360 1RF simethicone [Gas Relief (simethicone)] 125 mg tablet,chewable 125 mg PO TID MDD 3 PRN (Reason: abdominal distention) 30 Days Qty: 90 3RF Print Language: Croatian
[2025-08-13 21:56] LABS: Alanine Aminotransferase 20 U/L (0-31); Albumin Level 4.3 g/dL (3.5-5.0); Alkaline Phosphatase 91 U/L (39-117); Anion Gap 13 (12-20); Aspartate Amino Transferase 22 U/L (5-31); Blood Urea Nitrogen 14 mg/dL (9-16); Calcium 9.5 mg/dL (8.4-10.2); Carbon Dioxide 25 mmol/L (22-29); Chloride 110 mmol/L (96-108); Creatinine Clr Calc Pharmacy 75.6; Estimated Glomerular Filt Rate > 60; Potassium 3.9 mmol/L (3.3-5.1); Sodium 144 mmol/L (135-145); Total Protein 7.2 g/dL (6.5-8.0)
[2025-08-13 22:43] VITALS: BP 104/60; PULSE 77; RESP 18; TEMP 36.4; O2SAT 96
[2025-08-13 22:49] VITALS: BP 104/60; PULSE 77; RESP 18; TEMP 36.4; O2SAT 96
== END 2025-08-13 22:50 | disposition home or self-care (01) ==
PROVIDERS: Emergency Provider Emergency Medicine; PCP Physician Assistant
DX: L03.115 Cellulitis of right lower limb (principal); M25.551 Pain in right hip; G89.29 Other chronic pain; R60.0 Localized edema; M25.562 Pain in left knee
CPT/HCPCS: 36415; 73502; 80053; 85025; 93971; 99284

== ENCOUNTER → 2025-08-13 21:50 | Outpatient (BNV) | payer OTHER, SELFPAY | PROVIDERS: Emergency Provider Emergency Medicine; PCP Physician Assistant; Visit Provider Radiology Diagnostic Radiology | DX: M79.661 Pain in right lower leg (principal); M79.89 Other specified soft tissue disorders; M25.551 Pain in right hip | CPT/HCPCS: 73502; 93971 ==